=== PATIENT | female | born 1960 | race Caucasian/White ===

== ENCOUNTER 2023-11-09 07:41 | Inpatient (IN) | payer OTHER, MEDICARE, SELFPAY ==
[2023-11-06] VITALS (8 sets, daily range): BP systolic 85–190; BP diastolic 63–83; BMI 21.9; BMI 21.6
[2023-11-06 17:16] LABS: % Basophils 1.4 % (0-2); % Eosinophils 3.8 % (0-6); % Immature Granulocytes 0.2 % (0-0.5); % Lymphocytes 31.1 % (20.5-51.1); % Monocytes 8.7 % (1.7-9.3); % Neutrophils 54.8 % (42.2-75.2); Absolute Basophils 0.1 10^3/uL (0-0.2); Absolute Eosinophils 0.2 10^3/uL (0-0.7); Absolute Monocytes 0.6 10^3/uL (0.1-0.6); Absolute Neutrophils 3.5 10^3/uL (1.4-6.5); Hematocrit 33.2 % (37.0-47.0); Hemoglobin 11.3 g/dL (12.0-16.0); Mean Corpuscular Hgb 28.4 pg (27.0-31.0); Mean Corpuscular Volume 83.4 fL (81.0-99.0); Mean Platelet Volume 9.5 fL (7.4-10.4); Nucleated Red Blood Cells % 0 %; Platelet Count 327 10^3/uL (130-400); Red Blood Cell Count 3.98 10^6/uL (4.20-5.40); Red Cell Dist. Width 13.8 % (11.5-14.5); White Blood Cell Count 6.3 10^3/uL (4.8-10.8)
[2023-11-06 17:33] LABS: ALT (SGPT) 22 U/L (0-35); AST (SGOT) 27 U/L (14-36); Albumin 3.9 g/dl (3.5-5.0); Alkaline Phosphatase 91 U/L (38-126); Blood Urea Nitrogen 28 mg/dl (7-17); Calcium 10.1 mg/dl (8.4-10.2); Carbon Dioxide 30 mmol/L (22-30); Chloride 101 mmol/L (98-107); Glucose 218 mg/dl (70-99); Lipase 36 U/L (23-300); Potassium 4.1 mmol/L (3.5-5.1); Sodium 139 mmol/L (135-145); Total Bilirubin 0.3 mg/dl (0.2-1.3); Total Protein 6.6 g/dl (6.3-8.2); eGFR > 60.00
[2023-11-06 17:44] LABS: Troponin I < 0.012 ng/ml
[2023-11-06 19:40] LABS: D-Dimer 0.35 ug/mlFEU (0.00-0.50)
--- NOTE | 2023-11-06 19:48 | ED.GENMED ---
History of Present Illness
General
Chief Complaint: Chest Pain
Source: patient and spouse
Exam Limitations: none
Time Seen by Provider: 11/06/23 18:32
Nursing documentation reviewed up to this point in time: agreed with
Travel History
Have you had any contact with someone who has COVID-19?: No
Do you have any symptoms of coronavirus? Fever > 100 degrees, chills, cough, shortness of breath, sore throat, loss of taste or smell, muscle aches, or headache?: No
History of Present Illness
History of Present Illness:
Patient with history of CAD, status post stent placement 3 years ago at [facility], presents to ED secondary to 1 week history of fatigue, along with intermittent left-sided chest pain as well as exertional shortness of breath,
especially when walking up the steps. This afternoon, when chest pain occurred, which was sharp, more severe than previous, patient proceeded to nitroglycerin tablets at home. First tablet did not offer much relief, however, when second tablet was
taken 5 minutes later, chest pain resolved completely shortly afterwards. Afterwards, patient spoke with her primary care physician who advised patient come to ED for an evaluation. At the time of evaluation ED, patient denies any chest pain.
Denies fever. Denies coughing. Denies leg pain or swelling. Denies back pain. Patient states that sharp nature of the pain as well as fatigue, are similar to what she experienced 3 years ago when she received multiple stent placement. She was
also told at that time, there was 40 to 50% lesion in one of the other blood vessels.
Past History
Past History
ED Past Medical History: HTN, Hypercholesterolemia, IDDM, [place] and Other (Kidney transplant)
ED Past Surgical History: Other (Kidney transplant)
Social History
Tobacco: Non-smoker
Review of Systems
Review of Systems
Allergies reviewed?: Yes
All Other Systems: ROS reviewed and negative except as documented in HPI and ROS
Constitutional: Reports no symptoms
EENT: Reports no symptoms
Respiratory: Reports trouble breathing
Cardiac: Reports chest pain
ABD/GI: Reports no symptoms
: Reports no symptoms
Musculoskeletal: Reports no symptoms
Skin: Reports no symptoms
Neurological: Reports no symptoms
Phy Exam
Physical Exam
Physical Exam:
Physical Exam
General: no apparent distress, not acutely ill. afebrile
Head: nc/at. eomi
Neck: supple. normal range of motion. no jvd.
Heart: s1/s2 regular rate and rhythm, systolic ejection murmur. equal radial pulses.
Lungs: no acute respiratory distress. clear bilaterally
Abdomen: normal bowel sounds. not tender.
Neuro: alert and oriented. no focal neurological deficits
Skin: no rash
Psychiatric: well kept. interactive and cooperative
Extremities: no edema. no calf tenderness.
Scores
Heart Score for Chest Pain Patients
STEMI patient?: No
History: Moderately Suspicious
ECG: Normal
Age: >45 - <65 years
Risk Factors: >/= 3 Risk Factors or History of CAD
Troponin: </= Normal Limit
Heart Score for Chest Pain Patients: 4
Heart Score Risk: 20.3% MACE over next 6 weeks
Course
Orders/Labs/Results
Orders:
Orders
11/06/23 16:49
EKG [Electrocardiogram (*1)] Stat
Reason for Study: Chest Pain
EKG- Treatment ONCE
11/06/23 17:06
Complete Blood Count/With Diff Urgent
Comprehensive Metabolic Panel Urgent
Lipase Urgent
NT-proBNP Urgent
Comment: ADD ON
Troponin I Urgent
11/06/23 18:55
CR Chest - 2 Views Urgent
Comment:
Reason For Exam: chest pain
11/06/23 19:22
D-Dimer Urgent
11/06/23 19:56
Add On- LAB Urgent
Tests Added?: ProBNP
11/06/23 20:38
EKG- Treatment ONCE
11/06/23 21:14
Admit/Transfer Patient As Directed
Co-Sign Provider:
Level of Care: Observation services
Assign to:: Telemetry
Physician / Group: Zac
Diagnosis: Fatigue, Flank Pain
Reason for Telemetry: Chest Pain syndromes
Date to Stop Telemetry: 11/08/23
Time to Stop Telemetry: 11:00
11/06/23 21:15
Code Status As Directed
Resuscitation Status: Full Code
11/06/23 22:56
Acetaminophen [Tylenol] 650 mg PO Q4HPRN PRN
Dextrose 50%-Water [Dextrose 50% Syringe] 12.5 grams IV [id number] PRN
Gabapentin [Neurontin] 100 mg PO HS
Glucagon [GlucaGen] 1 mg IM PRN PRN
Ondansetron Injectable [Zofran] 4 mg IV Q6HPRN PRN
Pt's Own Ins. Pump U-500 [PT'S OWN INSULIN PUMP - U-500 HumuLIN R] See Dose Instructions SC PRN PRN
11/06/23 22:56
CARDIOLOGY CONSULT Routine
Consulting Provider: Josselyn Portillo
Was physician already notified: Yes
Reason for consult: Chest Pain
Activity As Directed
Activity Level: Ambulate
Bedside Glucose Monitoring As Directed
Frequency: AC&HS
Additional Instructions:: Change to q6h if pt on TPN, tube feeding or not eating
EKG with chest pain [ECG as needed] As Directed
ECG as needed for:: Chest Pain
I/O [Intake/ Output] As Directed
Frequency: Per unit guidelines
Orthostatic Vital Signs As Directed
Orthostatic VS Frequency: BID
Vital Signs As Directed
Frequency: Per unit guidelines
Weight As Directed
Frequency: Daily
Oxygen Therapy [O2 Therapy] [RESP] Routine
Titrate/Wean O2 to maintain O2 sat greater than (%): 94
DX Deep Vein Thrombosis Video Routine
11/06/23 23:45
Troponin I Q6H
11/07/23 00:00
Pt's Own Ins. Pump U-500 [PT'S OWN INSULIN PUMP - U-500 HumuLIN R] See Dose Instructions SC Q6
11/07/23 06:00
EKG [Electrocardiogram (*1)] IN AM
Reason for Study: Chest Pain
1800 calorie (15 carb) Diabetic
At Your Request: Full Participation
Six Small Meals: Yes
Levothyroxine [Synthroid] 100 mcg PO DAILY@0600
11/07/23 06:26
Basic Metabolic Panel IN AM
Complete Blood Count/No Diff IN AM
Glycohemoglobin (HgbA1c) IN AM
Troponin I Q6H
11/07/23 08:00
Aspirin Chewable [Low Strength Aspirin] 81 mg PO DAILY
FOLic ACID [Folvite] 1 mg PO DAILY
Furosemide [Lasix] 40 mg PO DAILY
Heparin 5,000 units SC Q12
Magnesium Oxide 500 mg PO DAILY
Prednisone [Deltasone] 5 mg PO DAILY
Tacrolimus [Prograf] 3 mg PO DAILY@0800
11/07/23 11:30
Troponin I Q6H
11/07/23 20:00
Tacrolimus [Prograf] 2 mg PO QPM@1999
11/08/23 11:00
DC Protocol for Telemetry ONCE
Abnormal Lab Results
11/06/23
17:06
RBC 3.98 L 10^6/uL
(4.20-5.40)
Hgb 11.3 L g/dL
(12.0-16.0)
Hct 33.2 L %
(37.0-47.0)
BUN 28 H mg/dl
(7-17)
Glucose 218 H mg/dl
(70-99)
11/06/23 17:06
11/06/23 17:06
Vital Signs
Initial and Last Documented VS:
Initial Vital Signs
Temp Pulse Resp BP Pulse Ox
98.0 F 87 18 85/63 99
11/06/23 16:49 11/06/23 16:49 11/06/23 16:49 11/06/23 16:49 11/06/23 16:49
Last Documented Vital Signs
Temp Pulse Resp BP Pulse Ox
98.5 F 83 18 130/73 98
11/08/23 07:00 11/08/23 07:00 11/08/23 07:00 11/08/23 07:00 11/08/23 07:00
MDM/Problems Addressed
MDM/Problems Addressed:
Discussed with (cardiology) - recommends hospitalist admission due to multiple cardiac risk factors, as well as kidney transplant history.
*EKG
Interpreted by ED Provider?: Yes
EKG Intrepretation Date: 11/06/23
Heart Rate: 88
Rate: normal
Rhythm: sinus
Hayes: normal axis
Interval: normal interval
*Critical Care Note
Total Time (30-74mins, 75-104mins- exclusive of procedures): Not Applicable
ED Attending Note
-
Portions of this chart may have been created with voice recognition software.� Occasional wrong word or��sound alike� substitutions may have occurred due to the inherent limitations of voice recognition software.
Discharge Plan
Departure
Patient Disposition: Admit
Date of Disposition: 11/06/23
Time of Disposition: 20:40
Admit to: Telemetry
Presentation/result/management discussed w/ accepting MD/DO: Hospitalist
Discharge Problem:
Chest pain
Interventions
Interventions:
*Risk Screen - Suicide Last Done: 11/06/23 17:52
*General Assessment Last Done: 11/06/23 16:49
*Neglect/Abuse Screening Last Done: 11/06/23 17:52
ED- Fall Risk Assessment Last Done: 11/06/23 17:53
*ED COVID-19 Vaccine History Last Done: 11/06/23 16:49
*Nursing Disposition Last Done: 11/06/23 22:40
ED- Cardiac Assessment Last Done: 11/06/23 17:53
Discharge Date and Time
Discharge Date/Time: 11/06/23 22:41
[2023-11-06 20:37] LABS: NT-proBNP 755 pg/ml
--- NOTE | 2023-11-06 21:25 | HPS.HSE ---
Family Physician
-
Family Physician: Pieter Lynn
Chief Complaint
-
Flank Pain
History of Present Illness
Patient is a 63y F with PMH significant for renal disease s/p transplant, ASCVD and HTN who presents to ED complaining of fatigue x 2 weeks, PERKINS and new flank pain. Patient states that she has not felt herself for the past 2 weeks or so. She
complains of general decrease in energy and notes that she has been 'lying on the couch a lot'. She complains of shortness of breath with activity / exertion. She denies headache, fever, chills, cough, etc. She does complain of nausea but denies
any emesis. No diarrhea or symptoms.
Today, patient developed pain in the L flank which was sudden and severe. She took a nitroglycerin tab with partial relief of her pain and then a second tab with complete relief of her pain.
Patient spoke with her PCP who advised evaluation in the ED.
At present she is resting comfortably with no additional complaints. She notes that she feels 'an ache' in the L flank, but no other pain.
Medical History
Past Medical History
Past Medical History: Reports Other
Additional Past Medical History:
ASCVD
ESRD s/p Renal Transplant
Hypertension
DM-II
Sarcoidosis
Hypothyroidism
Breast Cancer
ADHD
Past Surgical History: Reports Other
Additional Past Surgical History:
LUE AVF (placement and removal)
Renal Transplant (2001 - [facility])
T&A
Cholecystectomy
PTCA with Stents
Social History
Tobacco: Non-smoker
Alcohol: Occasional (Rare)
Drug: None
Family History
Family History: Not pertinent
Allergies / Home Medications
Allergies reflects when Allergies were last updated in [employer].
Home Medications with original date entered in [employer]
Allergy/Medication List:
Allergies
Allergy/AdvReac Type Severity Reaction Status Date / Time
Penicillins Allergy Unknown Shortness Verified 11/06/23 17:02
of Breath
prochlorperazine Allergy Unknown Anxiety Verified 11/06/23 17:02
[From Compazine]
Sulfa (Sulfonamide Allergy Unknown Rash Verified 11/06/23 17:02
Antibiotics)
Home Medications
aspirin 81 mg chewable tablet 81 mg PO DAILY Blood clot prevention/tx 02/12/22
ergocalciferol (vitamin D2) 1,250 mcg (50,000 unit) capsule 1,250 mcg PO MO Supplement 02/12/22
folic acid 1 mg tablet 1 mg PO DAILY Supplement 02/12/22
furosemide 40 mg tablet 40 mg PO DAILY Fluid retention/Swelling 02/12/22
magnesium oxide 400 mg (241.3 mg magnesium) tablet 400 mg PO DAILY Supplement 02/12/22
prednisone 5 mg tablet 5 mg PO DAILY Transplant 02/12/22
tacrolimus 1 mg capsule, immediate-release 2 mg PO QPM@2000 Transplant 02/12/22
tacrolimus 1 mg capsule, immediate-release 3 mg PO DAILY@0800 Transplant 02/12/22
gabapentin 100 mg capsule 100 mg PO HS 11/06/23
levothyroxine 100 mcg tablet 100 mcg PO DAILY 11/06/23
Review of Systems
-
History Source: Patient
A 12 point ROS was completed and negative except as noted: Yes
Constitutional: Reports Fatigue; Denies Fever or Chills
EENT: Denies Sore Throat
Respiratory: Reports Trouble Breathing (PERKINS); Denies Cough
Cardiac: Denies Chest Pain or Palpitations
Abdomen/GI: Reports Nausea; Denies Abdominal Pain, Vomiting, Diarrhea, Bloody Stools or Black Stools
: Reports Flank Pain; Denies Dysuria, Frequency or Incontinence
Musculoskeletal: Denies Edema
Neurological: Denies Dizzy, Headache, Weakness or Numbness
Psych: Denies Depression or Anxiety
Physical Exam
Vital Signs
Vital Signs
Temp Pulse Resp BP Pulse Ox
98.0 F 83 23 177/70 98
11/06/23 16:49 11/06/23 17:45 11/06/23 17:45 11/06/23 17:44 11/06/23 17:45
Physical Exam
General: Other (63y F in no acute distress.)
HEENT: Moist mucous membranes and PERRLA
Respiratory: Clear; No Wheezes, Rales or Rhonchi
Cardiac: S1/S2 and Regular Rhythm; No Murmur
GI: Soft, Non Tender, Non Distended, Normal Bowel Sounds and Other (insulin pump in place in RLQ.)
Musculoskeletal: No Clubbing, No Cyanosis and No Edema
Neuro: AO x 3 and Nonfocal/grossly intact
Psych: No Anxious or Depressed
Laboratory Results
-
11/06/23 17:06
11/06/23 17:06
Laboratory Results
Total Bilirubin 0.3 mg/dl (0.2-1.3) 11/06/23 17:06
AST 27 U/L (14-36) 11/06/23 17:06
ALT 22 U/L (0-35) 11/06/23 17:06
Alkaline Phosphatase 91 U/L (38-126) 11/06/23 17:06
Troponin I < 0.012 ng/ml 11/06/23 17:06
Lipase 36 U/L (23-300) 11/06/23 17:06
Impression/Plan
-
A/P: Patient is a 63y F with PMH significant for ASCVD, renal transplant and DM-II who presents to ED complaining of flank pain and 2 weeks of fatigue and PERKINS.
Flank Pain
ASCVD
- Observe overnight for further evaluation and treatment.
- Pain quite atypical for cardiac etiology with L flank pain, undetectable troponin and normal EKG.
- Monitor on tele overnight.
- Follow serial enzymes.
- Cardiology evaluation.
- Continue current CV medications.
- Prior h/o coronary stents.
- Check UA.
- Consider additional imaging if flank pain recurs / persists.
Fatigue / PERKINS
- Unclear etiology. ? viral syndrome.
- Labs unremarkable thus far.
- Monitor for any new / worsening symptoms.
- Check Prograf level.
DM-II
- Stable. Continue patient's own pump.
- Update A1C.
Benign Hypertension
- Patient notes that losartan recently stopped (about 2-3 weeks ago) due to lower BP readings at home.
- Continue current medications.
- Hydralazine PRN very high BP.
- Restart losartan if needed for adequate BP control.
Hypothyroidism
- Continue current T4 supplementation.
DVT Prophylaxis: Subcut Heparin
Code Status: Full
[2023-11-06 22:51] LABS: Glucose - Point of Care 178 mg/dl (70-99)
[2023-11-06] MEDS: [UNRECOGNIZED DRUG - OTHER] SC (23:00)
[2023-11-06] MEDS: INSULIN REGULAR SC (23:00)
[2023-11-06] MEDS: MELATONIN 5 MG PO (23:47)
[2023-11-06] MEDS: NEURONTIN 100 MG PO (23:47)
[2023-11-06] MEDS: PROGRAF 2 MG PO (23:52)
[2023-11-07 00:15] LABS: Troponin I 0.012 ng/ml
[2023-11-07 03:00] VITALS: BP 147/66
[2023-11-07] MEDS: SYNTHROID 100 MCG PO (05:40)
[2023-11-07 06:33] LABS: Hematocrit 30.8 % (37.0-47.0); Hemoglobin 10.4 g/dL (12.0-16.0); Mean Corp Hgb Conc. 33.8 g/dL (33.0-37.0); Mean Corpuscular Hgb 28.3 pg (27.0-31.0); Mean Corpuscular Volume 83.9 fL (81.0-99.0); Mean Platelet Volume 9.7 fL (7.4-10.4); Platelet Count 292 10^3/uL (130-400); Red Blood Cell Count 3.67 10^6/uL (4.20-5.40); Red Cell Dist. Width 13.5 % (11.5-14.5); White Blood Cell Count 5.8 10^3/uL (4.8-10.8)
--- NOTE | 2023-11-07 06:51 | W.PN.HOSP.TC ---
Today's Communication/Plan
-
ECHO stress test as per Cardio
PT/OT eval
Blood Pressure control
Bowel regimen
CT abd/pelvis
Assessment / Plan
Assessment / Plan
Physical Exam
General: no acute distress appears comfortable at this time
HEENT: Moist mucous membranes and PERRLA
Respiratory: Clear; No Wheezes, Rales or Rhonchi
Cardiac: S1/S2 and Regular Rhythm; No Murmur
GI: Soft, Non Tender, Non Distended, Normal Bowel Sounds, insulin pump in place in RLQ
Musculoskeletal: No Clubbing, No Cyanosis and No Edema
Neuro: AO x 3
Psych: Calm
A/P: Patient is a 63y F with PMH significant for ASCVD, renal transplant and DM-II who presents to ED complaining of left sided back pain and 2 weeks of fatigue and PERKINS.
Left sided Pain near scapula, improved with nitro as per patient
ASCVD
- Troponin neg x4
- Cardiology evaluation appreciated checking ECHO, stress test
- Continue current CV medications.
- Prior h/o coronary stents.
- UA neg
Fatigue / PERKINS, Reporting poor appetite intermittent nausea suprapubic pain/tenderness past few weeks
-PT/OT eval
-checking Prograf lvl
-Checking CT abd/pelvis with IV oral contrast, IV fluid NS 70 cc/h for 1 liter administered for prophylaxis IV contrast
(results to be discussed with patient) 11/06 CT abd/pelvis IV and oral contrast appreciated:
-Pulmonary nodules. 2.5 mm nodule in the left costophrenic angle. 2.9 mm groundglass nodule in the posterior right lung base. Advise comparison with any prior outside examination.
-Suspected treated metastatic lesion in the liver along the posterior right lobe margin measuring approximately 3 cm. At the junction of the medial and lateral segments of the left lobe there is a 1.1 cm low-attenuation space-occupying lesion. There
are additional tiny 5 mm or less low-attenuation hepatic structures which are too small to fully characterize. The possibility of metastatic disease cannot be entirely excluded. Advise direct comparison with any prior outside examination.
-Severe bilateral igiugig renal cortical atrophy. 10 mm enhancing right renal mass suspicious for renal cell carcinoma. Advise direct comparison with any prior outside examination.
-Left pelvic transplant kidney. No obstructive uropathy. Few tiny renal cortical cysts.
-No evidence of bowel obstruction.
-Constipation with moderate to large fecal burden.
-Under distention versus mild gastric wall thickening, most pronounced in the region of the gastric cardia, and to a lesser degree in the region of the antrum. Consider further evaluation with endoscopy.
DM-II
- A1c appreciated 8.3
-sugars appear well controlled at this time, patient managing with her pump
HTN
started on Hydralazine 10 mg BID as per Cardio
cont prn IV hydralazine
Hypothyroidism
- Continue current T4 supplementation.
DVT Prophylaxis: Subcut Heparin
Code Status: Full
I spent a total of 50 minutes with the patient or on the floor. More than 50% of this time involved counseling and coordination of care.
Anticipated Discharge: 24 - 48 hours
Subjective/Interval History
-
Date of Service: November 07, 2023
Seen and examined at bedside in no acute distress sitting up comfortably in bed. Reports left sided back pain tenderness near scapula. Denies flank pain.
Objective Data
-
Labs:
Laboratory Results
11/07/23
06:26
WBC Pending
Hgb Pending
Hct Pending
Plt Count Pending
Sodium Pending
Potassium Pending
Chloride Pending
Carbon Dioxide Pending
BUN Pending
Creatinine Pending
Glucose Pending
Calcium Pending
Vital Signs:
Vital Signs
Temp Pulse Resp BP Pulse Ox
98.0 F 76 16 147/66 98
11/07/23 03:00 11/07/23 03:00 11/07/23 03:00 11/07/23 03:00 11/07/23 03:00
[2023-11-07 06:56] LABS: Troponin I < 0.012 ng/ml
[2023-11-07 07:07] LABS: Blood Urea Nitrogen 26 mg/dl (7-17); Calcium 9.7 mg/dl (8.4-10.2); Carbon Dioxide 24 mmol/L (22-30); Chloride 104 mmol/L (98-107); Estimated Creatinine Clearance 61 ml/min; Glucose 164 mg/dl (70-99); Potassium 4.1 mmol/L (3.5-5.1); Sodium 136 mmol/L (135-145); eGFR > 60.00
[2023-11-07 07:15] VITALS: BP 153/77
[2023-11-07 07:22] LABS: Glucose - Point of Care 174 mg/dl (70-99)
[2023-11-07] MEDS: MAGNESIUM OXIDE 500 MG PO (08:44)
[2023-11-07] MEDS: LASIX 40 MG PO (08:44)
[2023-11-07] MEDS: DELTASONE 5 MG PO (08:44)
[2023-11-07] MEDS: HEPARIN SC ×4 (08:45→20:21)
[2023-11-07] MEDS: FOLVITE 1 MG PO (08:45)
[2023-11-07] MEDS: LOW STRENGTH ASPIRIN 81 MG PO (08:45)
[2023-11-07] MEDS: PROGRAF 3 MG PO (08:46)
[2023-11-07] MEDS: [UNRECOGNIZED DRUG - OTHER] SC ×3 (08:47→18:44)
[2023-11-07] MEDS: INSULIN REGULAR SC ×3 (08:47→18:44)
[2023-11-07 08:59] LABS: Glycohemoglobin (HgbA1c) 8.3 % (4.0-5.6)
[2023-11-07] MEDS: MAALOX 30 ML PO (10:30)
[2023-11-07 10:36] LABS: Urine Albumin Negative (Neg - Trace); Urine Bilirubin Negative (Negative); Urine Character Clear (Clear); Urine Color Yellow; Urine Glucose Negative (Negative); Urine Ketone Negative (Negative); Urine Leukocyte Negative (Negative); Urine Nitrite Negative (Negative); Urine Occult Blood Negative (Negative); Urine Specific Gravity 1.015 (<1.030); Urine Urobilinogen Negative (Neg - 1+)
[2023-11-07 11:05] VITALS: BP 171/94
[2023-11-07 11:38] LABS: Glucose - Point of Care 114 mg/dl (70-99)
[2023-11-07 12:21] LABS: Troponin I < 0.012 ng/ml
[2023-11-07] MEDS: NSS 1000 IV (13:04)
--- NOTE | 2023-11-07 13:18 | CON.CAR ---
Consultation
Consultation Request
Date/Time Consultation Requested: 11/06/2023 8 PM
Date/Time Consultation Performed: 11/07/2023 2 PM
Requesting Provider: Dr Carbajal
Performing Provider: Dr. Josselyn Portillo
Reason for Consultation: Chest pain
Medical History
-
Chief Complaint: Chest pain
History of Present Illness:
-She was last seen in our office 06/26/2022. Most recently she presented to [place] ER last night with 2 weeks and dyspnea on exertion and new chest discomfort which she also felt in her back. She had taken 2 sublingual nitroglycerin tablets at
home and chest pain resolved. EKG without acute abnormality. Troponin x 3 negative. She has history of coronary artery disease and renal transplant. She is concerned about residual coronary artery disease. Previously she was on 50 mg of
losartan for blood pressure which had to be de-escalated to 25 mg because of lightheadedness and low blood pressure readings and then eventually discontinued. Her blood pressure is now on the high side. She cannot take beta-blockers because she
has had problems with low sugar recognition. She currently denies chest pain and palpitations. She is some orthopedic issues which are being assessed.
She follows in our office with Dr. Alexander (last seen 06/2022). Prior to this she followed at [facility] cardiology with 03/2021 NE and stents, RCA and circumflex stents. Also h/o PCI in 1994 with LAD stent. It is noted that she had NSTEMI 03/2021 at
the time of overlapping stents to the RCA and Circumflex. Her LAD stent was patent at that time as well. Patient was started on ASA and Effient, but says she stopped the Effient 3 months later due to bruising.
Patient has h/o cadaveric renal transplant from 2001 at [place] that is now managed at [facility].
She has diabetes. She has mixed hyperlipidemia.
She underwent Lexiscan nuclear stress test 03/25/2022 with small fixed defect inferior and inferolateral. Echo 02/13/2022 with EF 55 to 60% mild MR and mild to moderate AI.
Past Medical History
Past Medical History: CAD, Cancer (Left-sided breast cancer status postlumpectomy and XRT she believes she received Herceptin 4 years ago at [facility] HTN, Hypercholesterolemia, Hypothyroidism and Other (Renal transplant,
sarcoid, neuropathy, history of breast cancer)
Past Surgical History: Cholecystectomy and Tonsilectomy
Social History
Tobacco: Non-Smoker
Personal: Single
Family History
Family History: Reviewed & Not Pertinent
Allergies / Home Medications
Allergy/AdvReac Type Severity Reaction Status Date / Time
Penicillins Allergy Unknown Shortness Verified 11/06/23 17:02
of Breath
prochlorperazine Allergy Unknown Anxiety Verified 11/06/23 17:02
[From Compazine]
Sulfa (Sulfonamide Allergy Unknown Rash Verified 11/06/23 17:02
Antibiotics)
�Medication �Instructions �Recorded �Confirmed �Type
aspirin 81 mg chewable tablet 81 mg PO DAILY Blood clot 02/12/22 11/06/23 History
prevention/tx
ergocalciferol (vitamin D2) 1,250 1,250 mcg PO MO Supplement 02/12/22 11/06/23 History
mcg (50,000 unit) capsule
folic acid 1 mg tablet 1 mg PO DAILY Supplement 02/12/22 11/06/23 History
furosemide 40 mg tablet 40 mg PO DAILY Fluid 02/12/22 11/06/23 History
retention/Swelling
magnesium oxide 400 mg (241.3 mg 400 mg PO DAILY Supplement 02/12/22 11/06/23 History
magnesium) tablet
prednisone 5 mg tablet 5 mg PO DAILY Transplant 02/12/22 11/06/23 History
tacrolimus 1 mg capsule, 2 mg PO QPM@2000 Transplant 02/12/22 11/06/23 History
immediate-release
tacrolimus 1 mg capsule, 3 mg PO DAILY@0800 Transplant 02/12/22 11/06/23 History
immediate-release
gabapentin 100 mg capsule 100 mg PO HS 11/06/23 11/06/23 History
levothyroxine 100 mcg tablet 100 mcg PO DAILY 11/06/23 11/06/23 History
Review of Systems
-
History Source: Patient
All other systems: Negative unless noted
Cardiac: Chest Pain
Musculoskeletal: Muscle Pain and Muscle Stiffness
Physical Exam
Vital Signs
Temp Pulse Resp BP Pulse Ox
98.1 F 86 18 171/94 99
11/07/23 11:05 11/07/23 11:05 11/07/23 11:05 11/07/23 11:05 11/07/23 11:05
Lab Results
11/07/23 06:26
11/07/23 06:26
755 pg/ml 11/06/23 17:06
General: Well developed, well nourished in NAD.
Neck: Supple, no JVD, HJR, carotids +2 B/L, no bruits bilaterally.
Heart: Non displaced PMI, RRR, 3/6 basal systolic murmur, No S3, S4, no rubs.
Lungs: Clear to auscultation bilaterally, no wheeze, rhonchi, rubs bilaterally,
Extremities: No clubbing, cyanosis or edema bilaterally.
Neuro: Grossly nonfocal, awake, alert and oriented x3.Troponin I < 0.012 ng/ml 11/07/23 11:30 Pke-R-[id number] Pept
Impression / Plan
-
Impression:
Chest pain, left upper back pain
Elevated Troponin, possibly a non-NE Troponin elevation
CAD
LAD stent 1994
s/p NSTEMI and overlapping mid to distal 3mm and 3 mm Resolute RCA stents and overlapping 2 and 2.5 mm Resolute stent to Circumflex
Statin intolerance, now on PCSK9 inhibitor
Hypertension
Moderate aortic valve insufficiency
Diabetes mellitus
Anemia
s/p cadaveric renal transplant at [place] 2001, currently managed at [facility]
Breast cancer left-sided lumpectomy radiation about 4 years ago possibly treated with Herceptin (obtain records from Pallavi Billingsley cardio corporate coordinator at [facility])
Neuropathy
Lexiscan nuclear stress test 03/25/2022: Fixed defect in the basal inferolateral and basal inferior segments consistent with infarction. No ischemia. EF 52%.
Echo 04/10/21: EF 55-60%, global strain is normal, no WMA, mild aortic insufficiency
ECHO 02/13/22: EF 55 to 60%, mild concentric LVH, no regional wall motion abnormalities, stage I diastolic dysfunction, mild MR, mild to moderate AR
Plan:
-She presents with chest/left upper back symptoms and dyspnea on exertion. Her blood pressure has been elevated similar to last admission in which she had chest discomfort. Troponins are negative x 3. EKG is abnormal but stable. She however did
respond to 2 sublingual nitroglycerin and she is concerned about coronary artery disease since this was associated with decrease in activity level.
Suspect that hypertension is playing a role. Last stress test negative for ischemia 03/25/2022. Echo noted above.
She is limited orthopedically with her back. She will undergo Lexiscan nuclear stress test to exclude ischemia/high risk features. Discussed with patient at length
Await echocardiogram she does have history of moderate AI previously. Assess LV function.
Continue risk factor modification.
Hypertension. She was recently hypotensive as an outpatient on losartan and had to be de-escalated. She cannot take beta-pamella because of issues with low sugars and not feeling them with beta-blockers previously. She cannot take calcium channel
blockers given can potentiate tacrolimus.
At this time I have started low-dose hydralazine and will uptitrate as tolerates.
Diabetes with hemoglobin A1c 8.3%.
Defer to primary service
Back pain
Being assessed by primary service
Renal transplant
Noted
Anemia
Stable
Breast cancer
Stable by report
Data Reviewed
-
EKG: Tracing Personally Visualized and interpreted
Radiology: Report Reviewed by me
Medical Tests (Nuc Med, Echo etc): Report Reviewed by me
Labs: Labs Reviewed by me
Old Records: Reviewed
[2023-11-07 15:40] VITALS: BP 151/84
[2023-11-07] MEDS: OMNIPAQUE 50 ML PO (16:14)
[2023-11-07 17:06] LABS: Glucose - Point of Care 162 mg/dl (70-99)
[2023-11-07 19:40] VITALS: BP 161/78
[2023-11-07] MEDS: PROGRAF 2 MG PO (20:17)
[2023-11-07] MEDS: APRESOLINE 10 MG PO (20:17)
[2023-11-07 21:22] LABS: Glucose - Point of Care 156 mg/dl (70-99)
[2023-11-07] MEDS: NEURONTIN 100 MG PO (21:33)
[2023-11-07] MEDS: MELATONIN 5 MG PO (22:11)
[2023-11-07 23:00] VITALS: BP 160/77
[2023-11-08] VITALS (10 sets, daily range): BP systolic 130–201; BP diastolic 69–105; PULSE 92; BMI 21.8
[2023-11-08] MEDS: [UNRECOGNIZED DRUG - OTHER] SC ×5 (00:36→23:43)
[2023-11-08] MEDS: INSULIN REGULAR SC ×5 (00:36→23:43)
[2023-11-08] MEDS: APRESOLINE 5 MG IV (02:46)
[2023-11-08 05:44] LABS: Hematocrit 30.9 % (37.0-47.0); Hemoglobin 10.7 g/dL (12.0-16.0); Mean Corp Hgb Conc. 34.6 g/dL (33.0-37.0); Mean Corpuscular Hgb 28.3 pg (27.0-31.0); Mean Corpuscular Volume 81.7 fL (81.0-99.0); Mean Platelet Volume 9.4 fL (7.4-10.4); Platelet Count 306 10^3/uL (130-400); Red Blood Cell Count 3.78 10^6/uL (4.20-5.40); Red Cell Dist. Width 13.6 % (11.5-14.5)
[2023-11-08 06:25] LABS: Blood Urea Nitrogen 20 mg/dl (7-17); Calcium 9.8 mg/dl (8.4-10.2); Carbon Dioxide 25 mmol/L (22-30); Chloride 106 mmol/L (98-107); Estimated Creatinine Clearance 69 ml/min; Glucose 139 mg/dl (70-99); HDL Cholesterol 75 mg/dl; LDL Cholesterol, Calculated 84 mg/dl; Magnesium 1.8 mg/dl (1.6-2.3); Potassium 4.2 mmol/L (3.5-5.1); Sodium 137 mmol/L (135-145); Total Cholesterol 172 mg/dl (50-199); Triglyceride 69 mg/dl (10-149); Very Low Density Lipoprotein 13 mg/dl (0-30); eGFR > 60.00
[2023-11-08] MEDS: SYNTHROID 100 MCG PO (06:29)
--- NOTE | 2023-11-08 08:41 | W.PN.CARDCBS ---
Addendum entered and electronically signed by Senait Quintero PA-C 11/08/23 13:37:
Reviewed stress test and echo results with patient. Echo 11/08/23 shows preserved EF 61% with mild to moderate AI. Lexiscan stress test 11/08/23 with small fixed, basilar, inferolateral and basilar inferior defects consistent with infarct and prior
RCA disease. No ischemia. EF 51%
Outpatient cardiology follow up arranged with Dr. Alexander who is her primary outpt food service supervisor for later this week
Original Note:
Today's Communication / Plan
-
MIBI and echo today
Impression / Plan
-
.
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
Impression:
Chest pain, left upper back pain
Elevated Troponin, possibly a non-NH Troponin elevation, peak 0.05
CAD
LAD stent 1994
s/p NSTEMI and overlapping mid to distal 3mm and 3 mm Resolute RCA stents and overlapping 2 and 2.5 mm Resolute stent to Circumflex
Statin intolerance, now on PCSK9 inhibitor
Hypertension
Moderate aortic valve insufficiency
Diabetes mellitus
Anemia
s/p cadaveric renal transplant at [place] 2001, currently managed at [facility]
Breast cancer left-sided lumpectomy radiation about 4 years ago possibly treated with Herceptin (obtain records from Pallavi Billingsley cardio marine operations coordinator at [place])
Neuropathy
Lexiscan nuclear stress test 03/25/2022: Fixed defect in the basal inferolateral and basal inferior segments consistent with infarction. No ischemia. EF 52%.
Echo 04/10/21: EF 55-60%, global strain is normal, no WMA, mild aortic insufficiency
ECHO 02/13/22: EF 55 to 60%, mild concentric LVH, no regional wall motion abnormalities, stage I diastolic dysfunction, mild MR, mild to moderate AR
Plan:
HPI: She presents with chest/left upper back symptoms and dyspnea on exertion. Her blood pressure has been elevated similar to last admission in which she had chest discomfort. Troponins are negative x 3. EKG is abnormal but stable. She however
did respond to 2 sublingual nitroglycerin and she is concerned about coronary artery disease since this was associated with decrease in activity level.
Lexiscan MIBI pending as well as echo.
nonMI trop may be related to HTN, however she had some response to nitro and has hx of PCI 1994 and Mar 2021 with PCI to RCA and LCX [facility].
Continue risk factor modification.
Hypertension: She was recently hypotensive as an outpatient on losartan and had to be de-escalated. She cannot take beta-pamella because of issues with low sugars and not feeling them with beta-blockers previously. She cannot take calcium channel
blockers given can potentiate tacrolimus.\\
Hydralazine was started this admit for HTN, titrate as needed.
Diabetes with hemoglobin A1c 8.3%:
Defer to primary service
Back pain
Being assessed by primary service
Progress Note - Machine Load Clerk
Subjective
Date of Service: November 08, 2023
Pt seen and examined. No complaints. No chest pain or shortness of breath.
Objective
Labs:
11/08/23 05:24
11/08/23 05:24
Labs
Hgb 10.7 g/dL (12.0-16.0) L 11/08/23 05:24
Hct 30.9 % (37.0-47.0) L 11/08/23 05:24
Plt Count 306 10^3/uL (130-400) 11/08/23 05:24
Sodium 137 mmol/L (135-145) 11/08/23 05:24
Potassium 4.2 mmol/L (3.5-5.1) 11/08/23 05:24
BUN 20 mg/dl (7-17) H 11/08/23 05:24
Creatinine 0.7 mg/dL (0.6-1.0) 11/08/23 05:24
Glucose 139 mg/dl (70-99) H 11/08/23 05:24
Troponins
11/06/23 11/06/23 11/07/23
17:06 23:45 06:26
Troponin I < 0.012 0.012 < 0.012
11/07/23
11:30
Troponin I < 0.012
Vital Signs and I&O:
Vital Signs
Temp Pulse Resp BP Pulse Ox
98.5 F 83 18 130/73 98
11/08/23 07:00 11/08/23 07:00 11/08/23 07:00 11/08/23 07:00 11/08/23 07:00
Vital Signs
Temp Pulse Resp BP Pulse Ox
98.5 F 83 18 130/73 98
11/08/23 07:00 11/08/23 07:00 11/08/23 07:00 11/08/23 07:00 11/08/23 07:00
Intake & Output
11/06/23 11/07/23 11/08/23 11/09/23
06:59 06:59 06:59 06:59
Intake Total 840 / 840
Balance 840 / 840
Physical Exam
Physical Exam
General: No acute distress, AAOX3
Neck: Negative JVD
Heart: Regular, Negative S3 positive S1/S2, Negative S4, No murmur
Lungs: CTA b/l, negative wheezes/rales/rhonchi
Abd: Positive BS, NT/ND, neg rebound/rigidity/guarding
Ext: Negative cyanosis/clubbing/edema
Neuro: nonfocal
--- NOTE | 2023-11-08 09:16 | W.PN.HOSP.TC ---
Today's Communication/Plan
-
Discuss CT imaging findings with patient
Will need oncology, nephrology, urology, pulmonary and GI consultations
Check iron studies
Assessment / Plan
Assessment / Plan
Physical Exam
General: no acute distress appears comfortable at this time
HEENT: Moist mucous membranes
Respiratory: Clear; No Wheezes, Rales or Rhonchi
Cardiac: S1/S2 and Regular Rhythm; No Murmur
GI: Soft, Non Tender, Non Distended, Normal Bowel Sounds, insulin pump in place in RLQ
Musculoskeletal: No Clubbing, No Cyanosis and No Edema
Neuro: AO x 3
Psych: Calm
A/P: Patient is a 63y F with PMH significant for ASCVD, renal transplant and DM-II who presents to ED complaining of left sided back pain and 2 weeks of fatigue and PERKINS.
Left sided Pain near scapula, improved with nitro as per patient
ASCVD
- Troponin neg x4
- Cardiology evaluation appreciated checked ECHO, stress test --> no ACS
- Continue current CV medications.
- Prior h/o coronary stents.
- UA neg
Fatigue / PERKINS, Reporting poor appetite intermittent nausea suprapubic pain/tenderness past few weeks
-PT/OT eval
-checked Prograf lvl -- low? Will consult nephrology.
-Checked CT abd/pelvis with IV oral contrast, IV fluid NS 70 cc/h for 1 liter administered for prophylaxis IV contrast
-CT abd/pelvis returned concerning for malignancy GI, right renal carcinoma, possible liver mets, and pulm nodules.
-Will need oncology, GI and urology consults
11/06 CT abd/pelvis IV and oral contrast appreciated:
-Pulmonary nodules. 2.5 mm nodule in the left costophrenic angle. 2.9 mm groundglass nodule in the posterior right lung base. Advise comparison with any prior outside examination.
-Suspected treated metastatic lesion in the liver along the posterior right lobe margin measuring approximately 3 cm. At the junction of the medial and lateral segments of the left lobe there is a 1.1 cm low-attenuation space-occupying lesion. There
are additional tiny 5 mm or less low-attenuation hepatic structures which are too small to fully characterize. The possibility of metastatic disease cannot be entirely excluded. Advise direct comparison with any prior outside examination.
-Severe bilateral [place] renal cortical atrophy. 10 mm enhancing right renal mass suspicious for renal cell carcinoma. Advise direct comparison with any prior outside examination.
-Left pelvic transplant kidney. No obstructive uropathy. Few tiny renal cortical cysts.
-No evidence of bowel obstruction.
-Constipation with moderate to large fecal burden.
-Under distention versus mild gastric wall thickening, most pronounced in the region of the gastric cardia, and to a lesser degree in the region of the antrum. Consider further evaluation with endoscopy.
DM-II
- A1c appreciated 8.3
-sugars appear well controlled at this time, patient managing with her pump
HTN
started on Hydralazine 10 mg BID as per Cardio
cont prn IV hydralazine
Hypothyroidism
- Continue current T4 supplementation.
DVT Prophylaxis: Subcut Heparin
Code Status: Full
Anticipated Discharge: 24 - 48 hours
Subjective/Interval History
-
Date of Service: November 08, 2023
Patient was seen and examined. She reported some fatigue but otherwise no new significant symptoms or complaints.
Objective Data
-
Labs:
Laboratory Results
11/08/23
05:24
WBC 7.0
Hgb 10.7 L
Hct 30.9 L
Plt Count 306
Sodium 137
Potassium 4.2
Chloride 106
Carbon Dioxide 25
BUN 20 H
Creatinine 0.7
Glucose 139 H
Calcium 9.8
Vital Signs:
Vital Signs
Temp Pulse Resp BP Pulse Ox
98.5 F 83 18 130/73 98
11/08/23 07:00 11/08/23 07:00 11/08/23 07:00 11/08/23 07:00 11/08/23 07:00
I&O
11/07/23 11/08/23 11/09/23
06:59 06:59 06:59
Intake Total 840 / 840
Balance 840 / 840
--- NOTE | 2023-11-08 09:30 | PN.DE.MGMTRT ---
Insulin Management
- -
11/08/2023: Diabetes consult for insulin pump management
This is a 63 year old female with T1DM initially diagnosed at 9 yrs old, routinely follows up with her Endocrine team Dr. Le. Pt presented with c/o fatigue x 2 weeks, PERKINS and new flank pain.
Pt is currently off the floor for tests and not available for interview.
All information obtained from chart review.
Pt has omni pod 5 insulin pump with Dexcom G6 CGM. Current A1C 8.3%, Cr 0.7, eGFR>60
Glucose stable and in range, premeal 114 to 174 yesterday, fasting 139 this AM.
Insulin pump and CGM in place according to nursing staff.
Chart review indicates previous Pump settings as follow:
Basal of 0.6, ICR 1:15, Sensitivity 70, 24 hr total of 14.4 units
Will make no changes to her pump settings at tis time
Pt will f/u with her Shingle Inspector Dr. Le post discharge
Diabetes History
- -
Type of Diabetes: 1
Pre-Admission Diabetes Regimen
11/08/23
05:24
Creatinine 0.7
Lab Results
Hemoglobin A1c 8.3 % (4.0-5.6) H 11/07/23 06:26
Insulin Pump Settings
IP Diabetes Regimen
11/07/23 11/07/23 11/07/23
11:37 17:04 21:20
Glucose
POC Glucose 114 H 162 H 156 H
11/08/23
05:24
Glucose 139 H
POC Glucose
Meal type: Dinner
Amount consumed: 100%
Patient Education
[2023-11-08] MEDS: MAGNESIUM OXIDE 500 MG PO (12:03)
[2023-11-08] MEDS: PROGRAF 3 MG PO (12:03)
[2023-11-08] MEDS: SENOKOT-S 1 TABLET PO ×2 (12:04→20:58)
[2023-11-08] MEDS: APRESOLINE 10 MG PO ×2 (12:04→20:57)
[2023-11-08] MEDS: LOW STRENGTH ASPIRIN 81 MG PO (12:04)
[2023-11-08] MEDS: DELTASONE 5 MG PO (12:04)
[2023-11-08] MEDS: LASIX 40 MG PO (12:04)
[2023-11-08 12:05] LABS: Glucose - Point of Care 166 mg/dl (70-99)
[2023-11-08] MEDS: FOLVITE 1 MG PO (12:05)
[2023-11-08] MEDS: HEPARIN SC ×4 (12:05→21:03)
[2023-11-08] MEDS: MIRALAX PO (12:06)
[2023-11-08] MEDS: ULTRAM 25 MG PO (13:16)
--- NOTE | 2023-11-08 14:00 | PTOTSP ---
Pt is independent with bed mobility, transfers, and ambulation without need for an assistive device. PT lachelle sign off.
--- NOTE | 2023-11-08 14:55 | CM ---
Met with pt and her at bedside
Pt lives with her in a 3 story home
Describes self as Independent
DME - glucometer, BP cuff
SNF -denies past hx
HH - has has VN in past - unsure of agency
Has ride at d/c
PCP -Dr Lynn
Pharm - [facility]
Given DELUCA
Plan - anticipate home no needs
[2023-11-08 16:43] LABS: Glucose - Point of Care 277 mg/dl (70-99)
--- NOTE | 2023-11-08 20:10 | PTCARENOTE ---
Patient is very upset and crying about the CT scan result from today. at the bedside. Emotional support given to the patient. Patient wants to take shower tonight. DIONI Hernandez made aware. New order for Xanax Po and okay to shower
received.
[2023-11-08] MEDS: PROGRAF 2 MG PO (20:58)
[2023-11-08] MEDS: NEURONTIN 100 MG PO (20:59)
[2023-11-08] MEDS: MELATONIN 5 MG PO (20:59)
[2023-11-08] MEDS: XANAX 0.25 MG PO (20:59)
[2023-11-08 21:28] LABS: Glucose - Point of Care 150 mg/dl (70-99)
[2023-11-09 01:55] LABS: Glucose - Point of Care 60 mg/dl (70-99)
[2023-11-09 02:13] LABS: Glucose - Point of Care 88 mg/dl (70-99)
[2023-11-09 03:00] VITALS: BP 163/83
[2023-11-09 04:10] LABS: Glucose - Point of Care 203 mg/dl (70-99)
[2023-11-09 05:36] LABS: Hematocrit 32.5 % (37.0-47.0); Hemoglobin 10.9 g/dL (12.0-16.0); Mean Corp Hgb Conc. 33.5 g/dL (33.0-37.0); Mean Corpuscular Hgb 28.5 pg (27.0-31.0); Mean Corpuscular Volume 85.1 fL (81.0-99.0); Mean Platelet Volume 9.4 fL (7.4-10.4); Platelet Count 282 10^3/uL (130-400); Red Blood Cell Count 3.82 10^6/uL (4.20-5.40); Red Cell Dist. Width 13.5 % (11.5-14.5); White Blood Cell Count 6.7 10^3/uL (4.8-10.8)
[2023-11-09] MEDS: SYNTHROID 100 MCG PO (05:58)
[2023-11-09 06:00] VITALS: BMI 21.7
[2023-11-09] MEDS: [UNRECOGNIZED DRUG - OTHER] SC ×3 (06:00→17:08)
[2023-11-09] MEDS: INSULIN REGULAR SC ×3 (06:00→17:08)
[2023-11-09 06:03] LABS: Glucose - Point of Care 171 mg/dl (70-99)
[2023-11-09 06:38] LABS: Blood Urea Nitrogen 18 mg/dl (7-17); Calcium 9.6 mg/dl (8.4-10.2); Carbon Dioxide 26 mmol/L (22-30); Chloride 104 mmol/L (98-107); Estimated Creatinine Clearance 61 ml/min; Glucose 164 mg/dl (70-99); Iron 34 ug/dl (37-170); Magnesium 1.9 mg/dl (1.6-2.3); Phosphorus 4.3 mg/dl (2.5-4.5); Potassium 4.4 mmol/L (3.5-5.1); Sodium 137 mmol/L (135-145); eGFR > 60.00
[2023-11-09 06:47] LABS: Percent Saturation 11 % (20-50); Total Iron Binding Capacity 292 ug/dl (265-497)
[2023-11-09 07:05] LABS: Ferritin 11.8 ng/ml (11.1-264.0)
--- NOTE | 2023-11-09 07:20 | PN.DE.MGMTRT ---
Insulin Management
- -
11/09/2023: Diabetes consult for insulin pump management, follow up
Patient admitted with l sided flank pain, PERKINS and fatigue. PMH CAD, anxiety, renal transplant, T1DM initially diagnosed at 9 yrs old, routinely follows up with her Endocrine team Dr. Le.
Pt has omni pod 5 insulin pump with Dexcom G6 CGM. Current A1C 8.3%, Cr 0.8, eGFR > 60
Glucose stable and in range, premeal 60 to 277 yesterday, fasting 171 this AM.
Insulin pump and CGM in place.
Patient is awake alert and oriented able to discuss diabetes management. Patient states her diabetes is very brittle, she has been to [facility] and they could not control her glucose. She feels the pump has helped her avoid
significant highs and lows.
Basal of 0.6, ICR 1:15, Sensitivity 70, 24 hr total of 14.4 units
Will make no changes to her pump settings at tis time
Pt will f/u with her Welder Assembler Dr. Le post discharge
Diabetes History
- -
Type of Diabetes: 1
Pre-Admission Diabetes Regimen
11/09/23
05:28
Creatinine 0.8
Lab Results
Hemoglobin A1c 8.3 % (4.0-5.6) H 11/07/23 06:26
Insulin Pump Settings
IP Diabetes Regimen
11/08/23 11/08/23 11/08/23
12:04 16:42 21:26
Glucose
POC Glucose 166 H 277 H 150 H
11/09/23 11/09/23 11/09/23
01:53 02:09 04:08
Glucose
POC Glucose 60 L 88 203 H
11/09/23 11/09/23
05:28 06:02
Glucose 164 H
POC Glucose 171 H
Patient Education
[2023-11-09] MEDS: PROGRAF 3 MG PO (07:37)
[2023-11-09] MEDS: FOLVITE 1 MG PO (07:37)
[2023-11-09] MEDS: SENOKOT-S 1 TABLET PO ×2 (07:37→20:44)
[2023-11-09] MEDS: MAGNESIUM OXIDE 500 MG PO (07:37)
[2023-11-09] MEDS: LASIX 40 MG PO (07:37)
[2023-11-09] MEDS: APRESOLINE 10 MG PO ×2 (07:37→20:45)
[2023-11-09] MEDS: DELTASONE 5 MG PO (07:37)
[2023-11-09] MEDS: LOW STRENGTH ASPIRIN 81 MG PO (07:37)
[2023-11-09] MEDS: MIRALAX 17 GRAMS PO (07:37)
[2023-11-09 07:41] VITALS: BP 153/83
[2023-11-09] MEDS: HEPARIN SC ×2 (07:46→20:50)
[2023-11-09 07:54] LABS: Glucose - Point of Care 141 mg/dl (70-99)
--- NOTE | 2023-11-09 10:55 | CON.PUL ---
Consultation
Consultation Request
Date/Time Consultation Requested: 11/09/2023 - 730
Date/Time Consultation Performed: 11/09/2023 - 5
Requesting Provider: Dr. Carreon
Performing Provider: Dr. Mccarty
Reason for Consultation: Pulmonary nodules
Medical History
-
Chief Complaint: Chest pain
History of Present Illness:
63-year-old female with a past medical history of DM type I, history of ESRD s/p donor kidney transplant, history of sarcoidosis, CAD s/p stents to LAD, RCA + LCx, HTN, HLD, hypothyroidism and history of breast cancer who presents with
chest pain since last week also involving her left scapula and neck. Pain was relieved by nitroglycerin on the morning of arrival on 11/06/2023. Patient also endorsing SOB, fatigue, nausea and LH. Patient was hypotensive in triage to 85/63,
afebrile to 98 �F, breathing at 18 breaths/min and saturating 99% on room air. Initial labs showed a negative troponin of <0.012, proBNP of 755, lipase 36, and initial POCT was 178. She was admitted to telemetry with cardiology consulted. She
underwent an echo on 11/08/2023 which showed no significant change compared to prior from 01/2022 with LVEF 61%, mild LVH, mild�moderate AI and normal RV size/function. She had a stress test done also on the same day showing LVEF 51% with gated
imaging showing normal wall motion and thickening of all myocardial segments, with a small, mild, fixed basilar inferolateral and basilar inferior defect. Due to her having abdominal pain with nausea, appetite loss, she obtained a CT A/P with IV/PO
contrast on 11/07/2023 showing 2 small pulmonary nodules with a 2.5 mm nodule in the left costophrenic angle, and a 2.9 mm GGO in the right posterior lung base. There also was a 10 mm enhancing right renal mass suspicious for renal cell carcinoma,
evidence of left pelvic transplant kidney with no obstructive uropathy, no evidence of bowel obstruction, and a suspected treated metastatic lesion in the liver with a 1.1 cm space-occupying lesion in the left hepatic lobe and additional 5 mm or
less lesions as well in the liver. Due to her lung nodules, and other abnormal findings on the CT A/P, pulmonary service now consulted for additional recommendations.
When I saw the patient she was standing in her room in no acute distress on room air breathing comfortably. We discussed her CT A/P findings and she has no recollection of any liver lesions or a right-sided stillaguamish kidney lesion. She did have
imaging done at [facility] with a whole-body PET/CT on 06/10/2023 and prior to that had a CT chest with IV contrast on 05/20/2023. This LLL lung nodule was present on this prior CT chest from 05/12/2023 and had measured 4 mm at that time. There is
however no mention of this RLL GGO. She also has a nodular consolidation in the right middle lobe containing air bronchograms measuring 1.8 x 1.5 which showed mild FDG uptake with max SUV of 3.2 via her PET/CT from 06/10/2023. This had gone down in
size from 2 x 1.6 cm on her last CT chest from 05/12/2023. Patient overall feels fine. Denies chest pain, headache, abdominal pain, fevers or chills.
PMHx: DM type I, ESRD s/p donor kidney transplant (2001 at [facility]), history of sarcoidosis, CAD s/p stents to LAD (1994), RCA + LCx (2020), hypertension, hyperlipidemia, hypothyroidism, history of hyponatremia, neuropathy, history of
stroke, history of breast cancer, arthritis, history of kidney stone
PSHx: donor renal transplant (2001), coronary stent to RCA + LCx (March 2021), PCI to LAD (1994), hand surgery
Past Medical History
Past Medical History: Other (Above as per HPI)
Past Surgical History: Other (Above as per HPI)
Social History
Tobacco: Non-smoker
Alcohol: Occasional
Drug: None
Family History
Family History: CAD (Mother), Cancer (Mother: Bone cancer) and Hypertension (Father)
Allergies / Home Medications
Allergies
Allergy/AdvReac Type Severity Reaction Status Date / Time
Penicillins Allergy Shortness Verified 11/08/23 20:14
of Breath
prochlorperazine Allergy Anxiety Verified 11/08/23 20:14
[From Compazine]
Sulfa (Sulfonamide Allergy Rash Verified 11/08/23 20:14
Antibiotics)
Home Medications
�Medication �Instructions �Recorded �Confirmed �Last Taken �Type
aspirin 81 mg chewable tablet 81 mg PO DAILY Blood clot 02/12/22 11/06/23 02/12/22 08:00 History
prevention/tx
ergocalciferol (vitamin D2) 1,250 1,250 mcg PO MO Supplement 02/12/22 11/06/23 02/09/22 08:00 History
mcg (50,000 unit) capsule
folic acid 1 mg tablet 1 mg PO DAILY Supplement 02/12/22 11/06/23 02/12/22 08:00 History
furosemide 40 mg tablet 40 mg PO DAILY Fluid 02/12/22 11/06/23 02/12/22 08:00 History
retention/Swelling
magnesium oxide 400 mg (241.3 mg 400 mg PO DAILY Supplement 02/12/22 11/06/23 02/12/22 08:00 History
magnesium) tablet
prednisone 5 mg tablet 5 mg PO DAILY Transplant 02/12/22 11/06/23 02/12/22 08:00 History
tacrolimus 1 mg capsule, 2 mg PO QPM@2000 Transplant 02/12/22 11/06/23 02/11/22 20:00 History
immediate-release
tacrolimus 1 mg capsule, 3 mg PO DAILY@0800 Transplant 02/12/22 11/06/23 02/12/22 08:00 History
immediate-release
gabapentin 100 mg capsule 100 mg PO HS Pain 11/06/23 11/06/23 Unknown History
levothyroxine 100 mcg tablet 100 mcg PO DAILY Thyroid 11/06/23 11/06/23 Unknown History
Review of Systems
-
History Source: Patient
All other systems: Negative unless noted
Vitals / Labs / Diagnostic Testing
Vital Signs
Temp Pulse Resp BP Pulse Ox
98.2 F 84 16 153/83 99
11/09/23 07:41 11/09/23 07:41 11/09/23 07:41 11/09/23 07:41 11/09/23 07:41
Lab Data
11/09/23 05:28
11/09/23 05:28
Diagnostic Testing:
Physical Exam
-
HEENT: Normocephalic and Anicteric
Cardiovascular: S1/S2 and Murmur (+GORDO)
Respiratory: Clear, Wheeze (n), Rales (n) and Rhonchi (n)
GI: Soft, Non Distended, Non Tender and Normal Bowel Sounds
Neurology: AO x 3 and Tremors (n)
Skin: Warm and Dry
General: Comfortable, Fever (n) and Chills (n)
Assessment
-
Assessment: 63-year-old female with a PMHx of DM type I on insulin pump, history of ESRD s/p donor kidney transplant, history of sarcoidosis, CAD s/p stents to LAD, RCA + LCx, HTN, HLD, hypothyroidism and history of breast cancer who
presents with chest pain, found to have negative troponin x4 and was admitted to telemetry for further management. Cardiology consulted for additional workup. She also endorsed abdominal pain with nausea and appetite loss, and CT A/P showed 2
small pulmonary nodules with multiple liver lesions and a 10 mm enhancing right renal mass suspicious for RCC. Given the findings of these lung nodules and additional abnormal findings on her CT abdomen/pelvis, pulmonary service now consulted for
additional management/recommendations.
Chronic conditions SPONGE BUFFER: DM type I, ESRD s/p donor kidney transplant (2001 at [facility]), history of sarcoidosis, CAD s/p stents to LAD (1994), RCA + LCx (2020), hypertension, hyperlipidemia, hypothyroidism, history of hyponatremia,
neuropathy, history of stroke, history of breast cancer, arthritis, history of kidney stone
Impression:
#Abnormal CT Abd/Pelvis with multiple pulmonary nodules, multiple hepatic lesions and a 10 mm enhancing right renal mass suspicious for RCC -lung nodules are small, with a 2.5 mm nodule in the LLL +3 mm GGO in posterior RLL
#History of sarcoidosis
#History of ESRD s/p DDRT ([address] [place] [address])
#DM type 1 c/b hyperglycemia
#Iron deficiency anemia
#History of breast cancer s/p XRT + lumpectomy
Plan:
- The nodules that are seen on CT A/P are small and I am not concerned, however I am unable to see the remainder of the lung parenchyma. Hence I will order a dedicated CT chest to evaluate for any other lung nodules in the remainder of the lung
[place]
- She did have imaging done at [facility] with a whole-body PET/CT on 06/10/2023 and prior to that had a CT chest with IV contrast on 05/20/2023, and there is mention of a LLL 4mm nodule on both these studies. There is however no mention of this RLL GGO.
She also has a nodular consolidation in the right middle lobe containing air bronchograms measuring 1.8 x 1.5 which showed mild FDG uptake with max SUV of 3.2 via her PET/CT from 06/10/2023. This had gone down in size from 2 x 1.[address]
chest from 05/12/2023.
- Also no mention of these liver lesions with a suspected treated metastatic lesion in the posterior right lobe and a 1.1 cm lesion in the left lobe - would obtain prior abdominal imaging, if possible.
- Maintain SpO2 >90-94% with supplemental O2 as needed
- Incentive spirometer encouraged
- She should follow-up with her team at [facility] following discharge for any additional imaging
- Oncology consult
- Ischemic workup as per cardiology
- Replete electrolytes with K>4, Mg>2
- Maintain euglycemia with goal BG >100 and <180
- prn nebulized bronchodilators
- DVT ppx
Pulmonary service will continue to follow along.
Total time spent today was 55 minutes for this encounter. Time includes reviewing laboratory test/imaging results, reviewing pertinent medical records, obtaining and reviewing medical history, performing an appropriate exam, ordering medications,
tests and procedures. Time also includes documentation of this encounter, coordinating patient care and communicating with other healthcare professionals. Total time does not include separately billed tests performed on this date of service.
Data:
CT A/P with IV/PO Contrast 11-07-2023:
Pulmonary nodules. 2.5 mm nodule in the left costophrenic angle. 2.9 mm groundglass nodule in the posterior right lung base. Advise comparison with any prior outside examination.
Suspected treated metastatic lesion in the liver along the posterior right lobe margin measuring approximately 3 cm. At the junction of the medial and lateral segments of the left lobe there is a 1.1 cm low-attenuation space-occupying lesion. There
are additional tiny 5 mm or less low-attenuation hepatic structures which are too small to fully characterize. The possibility of metastatic disease cannot be entirely excluded. Advise direct comparison with any prior outside examination.
Severe bilateral stillaguamish renal cortical atrophy. 10 mm enhancing right renal mass suspicious for renal cell carcinoma. Advise direct comparison with any prior outside examination.
Left pelvic transplant kidney. No obstructive uropathy. Few tiny renal cortical cysts.
No evidence of bowel obstruction.
Constipation with moderate to large fecal burden.
Under distention versus mild gastric wall thickening, most pronounced in the region of the gastric cardia, and to a lesser degree in the region of the antrum. Consider further evaluation with endoscopy.
Outside imaging via [facility]:
Whole-body PET/CT � 06/10/2023: Comparison: Whole-body bone scan 05/12/2023, CT chest, abdomen, pelvis 05/12/2023, FDG PET/CT 09/24/2020
Impression:
1. Right middle lobe opacity with mild FDG uptake has slightly decreased in size, favoring infectious/inflammatory etiology. Additional 4 mm left lower lobe pulmonary nodule, potentially inflammatory as well. Recommend follow-up with diagnostic CT
chest in 2-3 months
2. No other sites of FDG avid disease
CT chest with IV contrast � 05/12/2023: Comparison: Breast MRI from August 2022
Impression:
1. New nodular consolidation within the right lung since the PET/CT from September 2020, more conspicuous than on the breast MRI from August. Considerations include treatment induced effects while residual pneumonia must also be considered and tumor
recurrence cannot be excluded.
2. More conspicuous small nodule in the left lower, to which difference better inspiration today likely contributes, more likely to represent a benign etiology than a cancer manifestation.
3. No significant change in treatment induced alterations within the left breast
--- NOTE | 2023-11-09 11:08 | CON.ONC ---
Impression
Impression
Imaging abnormalities with hx breast cancer on immunosuppression
Plan
Plan
She is scheduled for evalaution with her medical oncologist @ the [facility] next week-- she recalls having liver evaluation for micronodular adenomas and follows with [place] [facility] for ? subcm pulmonary nodules though she is unaware of renal lesion--
hold further investigation in this regard pending f/u
Patient History
History of Present Illness
Pleasant 63yo WF with hs remote renal transplant and recent hx in last 5 years of early stage node negative breast cancer s/p lumpctomy/SLND treated with chemoimmunotherapy for HR/[id number] pos as she was intolerant of AI therapy then received
radiation therapy for local relapse. She is admitted with chest pain, noncardiac accompanying mild dyspepsia/ LUIGI prompted CT scan AP noting 3cm peripheral right lobe 'treated' focus and mid-left lobe 1.1cm lesion with subcm hypodense structure in
both lobes, pancreatic atrophy and enhancing midpole mass of rosebud right kidney suspicious for renal cell w/o suspicious bone lesions
Past-Medical/Surgical History
IRDM; hypothyroid; HTN; CAD s/p cardiac stenting; sarcoidosis
Patient Medication
�Medication �Instructions �Recorded �Confirmed �Last Taken �Type
aspirin 81 mg chewable tablet 81 mg PO DAILY Blood clot 02/12/22 11/06/23 02/12/22 08:00 History
prevention/tx
ergocalciferol (vitamin D2) 1,250 1,250 mcg PO MO Supplement 02/12/22 11/06/23 02/09/22 08:00 History
mcg (50,000 unit) capsule
folic acid 1 mg tablet 1 mg PO DAILY Supplement 02/12/22 11/06/23 02/12/22 08:00 History
furosemide 40 mg tablet 40 mg PO DAILY Fluid 02/12/22 11/06/23 02/12/22 08:00 History
retention/Swelling
magnesium oxide 400 mg (241.3 mg 400 mg PO DAILY Supplement 02/12/22 11/06/2322 08:00 History
magnesium) tablet
prednisone 5 mg tablet 5 mg PO DAILY Transplant 02/12/22 11/06/23 02/12/22 08:00 History
tacrolimus 1 mg capsule, 2 mg PO QPM@2000 Transplant 02/12/22 11/06/23 02/11/22 20:00 History
immediate-release
tacrolimus 1 mg capsule, 3 mg PO DAILY@0800 Transplant 02/12/22 11/06/23 02/12/22 08:00 History
immediate-release
gabapentin 100 mg capsule 100 mg PO HS Pain 11/06/23 11/06/23 Unknown History
levothyroxine 100 mcg tablet 100 mcg PO DAILY Thyroid 11/06/23 11/06/23 Unknown History
Active Medications
Generic Name Dose Route Start Last Admin
Trade Name Freq PRN Reason Stop Dose Admin
Acetaminophen 650 mg 11/06/23 22:56
Acetaminophen 325 Mg Tablet PO 12/04/23 22:55
Q4HPRN PRN
Mild Pain / Temp > 101
Al Hydrox/Mg Hydrox/Simethicone 30 ml 11/07/23 09:56 11/07/23 10:30
Mag/Al/Simethicone Suspension 30 Ml Cup PO 12/05/23 09:55 30 ml
QIDPRN PRN Administration
indigestion heart burn
Alprazolam 0.25 mg 11/08/23 20:05 11/08/23 20:59
Alprazolam 0.25 Mg Tablet PO 12/06/23 20:04 0.25 mg
Q8HPRN PRN Administration
anxiety
Aspirin 81 mg 11/07/23 08:00 11/09/23 07:37
Aspirin 81 Mg Chewable Tablet PO 12/05/23 07:59 81 mg
DAILY ADRY Administration
Dextrose 12.5 grams 11/06/23 22:56
Dextrose 50% (0.5 Grams/Ml) 50 Ml Syringe IV 12/04/23 22:55
[id number] PRN
hypoglycemia
Protocol
Folic Acid 1 mg 11/07/23 08:00 11/09/23 07:37
Folic Acid 1 Mg Tablet PO 12/05/23 07:59 1 mg
DAILY ADRY Administration
Furosemide 40 mg 11/07/23 08:00 11/09/23 07:37
Furosemide 40 Mg Tablet PO 12/05/23 07:59 40 mg
DAILY ADRY Administration
Gabapentin 100 mg 11/06/23 22:56 11/08/23 20:59
Gabapentin 100 Mg Capsule PO 12/04/23 22:55 100 mg
HS ADRY Administration
Glucagon 1 mg 11/06/23 22:56
Glucagon 1 Mg Vial IM 12/04/23 22:55
PRN PRN
hypoglycemia
Protocol
Heparin Sodium 5,000 units 11/07/23 08:00 11/09/23 07:46
Heparin 5,000 Units/Ml 1 Ml Vial SC 12/05/23 07:59 Not Given
Q12 ADRY
Hydralazine HCl 5 mg 11/06/23 22:56 11/08/23 02:46
Hydralazine 20 Mg/Ml Vial IV 12/04/23 22:55 5 mg
Q6HPRN PRN Administration
SBP > 180
Hydralazine HCl 10 mg 11/07/23 20:00 11/09/23 07:37
Hydralazine 10 Mg Tablet PO 12/05/23 19:59 10 mg
BID ADRY Administration
Levothyroxine Sodium 100 mcg 11/07/23 06:00 11/09/23 05:58
Levothyroxine 100 Mcg Tablet PO 12/05/23 05:59 100 mcg
DAILY@0600 ADRY Administration
Magnesium Oxide 500 mg 11/07/23 08:00 11/09/23 07:37
Magnesium Oxide 500 Mg Tablet PO 12/05/23 07:59 500 mg
DAILY ADRY Administration
Melatonin 5 mg 11/07/23 22:00 11/08/23 20:59
Melatonin 5 Mg Tablet PO 12/05/23 21:59 5 mg
HS ADRY Administration
Ondansetron HCl 4 mg 11/06/23 22:56
Ondansetron 4 Mg/2 Ml Vial IV 12/04/23 22:55
Q6HPRN PRN
nausea and vomiting
Patient Own Medication 0 unit 11/07/23 00:00 11/09/23 06:00
Insulin Pump - Patient's Own Concentrated Humulin R (U-500) SC 12/05/23 00:00 Not Given
Q6 ADRY
Patient Own Medication 0 unit 11/06/23 22:56
Insulin Pump - Patient's Own Concentrated Humulin R (U-500) SC 12/04/23 22:55
PRN PRN
hyperglycemia
Polyethylene Glycol 17 grams 11/08/23 08:00 11/09/23 07:37
Polyethylene Glycol Powder 17 Grams Packet PO 12/06/23 07:59 17 grams
DAILY ADRY Administration
Prednisone 5 mg 11/07/23 08:00 11/09/23 07:37
Prednisone 5 Mg Tablet PO 12/05/23 07:59 5 mg
DAILY ADRY Administration
Senna/Docusate Sodium 1 tablet 11/08/23 08:00 11/09/23 07:37
Docusate W/Senna (Suzan-Colace) Tablet PO 12/06/23 07:59 1 tablet
BID ADRY Administration
Sodium Chloride 0 flush 11/06/23 23:00
Sodium Chloride 0.9% (Flush) Syringe IV 12/04/23 22:59
PER PROTOCOL ADRY
Tacrolimus 3 mg 11/07/23 08:00 11/09/23 07:37
Tacrolimus 1 Mg Capsule PO 12/05/23 07:59 3 mg
DAILY@0800 ADRY Administration
Tacrolimus 2 mg 11/07/23 20:00 11/08/23 20:58
Tacrolimus 1 Mg Capsule PO 12/05/23 19:59 2 mg
QPM@2000 ADRY Administration
Review of Systems
-
History Source: Patient
All Other Systems: Reviewed and Negative
Physical Exam
-
General: No Apparent Distress
HEENT: Moist Mucous Membranes
Cardiology: Normal Sinus Rhythm
Pulmonary: Clear
GI: Soft and Normal Bowel Sounds
Musculoskeletal: No Clubbing, No Cyanosis and No Edema
Neurology: Non Focal
Skin: Warm
Psych: Calm
Labs
Lab Results
WBC 6.7 10^3/uL (4.8-10.8) 11/09/23 05:28
RBC 3.82 10^6/uL (4.20-5.40) L 11/09/23 05:28
Hgb 10.9 g/dL (12.0-16.0) L 11/09/23 05:28
Hct 32.5 % (37.0-47.0) L 11/09/23 05:28
MCV 85.1 fL (81.0-99.0) 11/09/23 05:28
MCH 28.5 pg (27.0-31.0) 11/09/23 05:28
MCHC 33.5 g/dL (33.0-37.0) 11/09/23 05:28
RDW 13.5 % (11.5-14.5) 11/09/23 05:28
Plt Count 282 10^3/uL (130-400) 11/09/23 05:28
MPV 9.4 fL (7.4-10.4) 11/09/23 05:28
Abs Immat Gran (auto) 0.0 10^3/uL (0-0.05) 11/06/23 17:06
Absolute Neuts (auto) 3.5 10^3/uL (1.4-6.5) 11/06/23 17:06
Absolute Lymphs (auto) 2.0 10^3/uL (1.2-3.4) 11/06/23 17:06
Absolute Monos (auto) 0.6 10^3/uL (0.1-0.6) 11/06/23 17:06
Absolute Eos (auto) 0.2 10^3/uL (0-0.7) 11/06/23 17:06
Absolute Basos (auto) 0.1 10^3/uL (0-0.2) 11/06/23 17:06
Immature Gran % 0.2 % (0-0.5) 11/06/23 17:06
Neutrophils % 54.8 % (42.2-75.2) 11/06/23 17:06
Lymphocytes % 31.1 % (20.5-51.1) 11/06/23 17:06
Monocytes % 8.7 % (1.7-9.3) 11/06/23 17:06
Eosinophils % 3.8 % (0-6) 11/06/23 17:06
Basophils % 1.4 % (0-2) 11/06/23 17:06
Creatinine 0.8 mg/dL (0.6-1.0) 11/09/23 05:28
Vital Signs
Vital Signs
Temp Pulse Resp BP Pulse Ox
98.2 F 84 16 153/83 99
11/09/23 07:41 11/09/23 07:41 11/09/23 07:41 11/09/23 07:41 11/09/23 07:41
[2023-11-09 11:39] LABS: Glucose - Point of Care 266 mg/dl (70-99)
[2023-11-09 11:45] VITALS: BP 144/79
--- NOTE | 2023-11-09 12:58 | W.PN.HOSP.TC ---
Today's Communication/Plan
-
Appreciate pulmonary, oncology, urology and psychiatry given possible cancer diagnosis
Assessment / Plan
Assessment / Plan
Physical Exam
General: Not in acute distress
HEENT: Moist mucous membranes
Respiratory: Clear; No Wheezes, Rales or Rhonchi
Cardiac: S1/S2 and Regular Rhythm; No Murmur
GI: Soft, Non Tender, Non Distended, Normal Bowel Sounds, insulin pump in place in RLQ
Musculoskeletal: No Cyanosis and No Edema
Neuro: AAO x 3
Psych: Calm
A/P: Patient is a 63y F with PMH significant for ASCVD, renal transplant and DM-II who presents to ED complaining of left sided back pain and 2 weeks of fatigue and PERKINS.
Left sided Pain near scapula, improved with nitro as per patient
ASCVD
- Troponin neg x4
- Cardiology evaluation appreciated checked ECHO, stress test --> no ACS
- Continue current CV medications.
- Prior h/o coronary stents.
- UA neg
Fatigue / PERKINS, Reporting poor appetite intermittent nausea suprapubic pain/tenderness past few weeks
-PT/OT eval
-Prograf level acceptable in the 3 to 5 range, discussed with nephrology
-CT abd/pelvis returned concerning for malignancy GI, right renal carcinoma, possible liver mets, and pulm nodules.
11/06 CT abd/pelvis IV and oral contrast appreciated:
-Pulmonary nodules. 2.5 mm nodule in the left costophrenic angle. 2.9 mm groundglass nodule in the posterior right lung base. Advise comparison with any prior outside examination.
-Suspected treated metastatic lesion in the liver along the posterior right lobe margin measuring approximately 3 cm. At the junction of the medial and lateral segments of the left lobe there is a 1.1 cm low-attenuation space-occupying lesion. There
are additional tiny 5 mm or less low-attenuation hepatic structures which are too small to fully characterize. The possibility of metastatic disease cannot be entirely excluded. Advise direct comparison with any prior outside examination.
-Severe bilateral venetie ira renal cortical atrophy. 10 mm enhancing right renal mass suspicious for renal cell carcinoma. Advise direct comparison with any prior outside examination.
-Left pelvic transplant kidney. No obstructive uropathy. Few tiny renal cortical cysts.
-No evidence of bowel obstruction.
-Constipation with moderate to large fecal burden.
-Under distention versus mild gastric wall thickening, most pronounced in the region of the gastric cardia, and to a lesser degree in the region of the antrum. Consider further evaluation with endoscopy.
-Consulted pulmonary, urology and oncology -- appreciate recommendations
DM-II
- A1c appreciated 8.3
-sugars appear well controlled at this time, patient managing with her pump
HTN
started on Hydralazine 10 mg BID as per Cardio
cont prn IV hydralazine
Hypothyroidism
- Continue current T4 supplementation.
DVT Prophylaxis: Subcut Heparin
Code Status: Full
Anticipated Discharge: 24 - 48 hours
Subjective/Interval History
-
Date of Service: November 09, 2023
Patient was seen and examined. She reported feeling depressed from her CT findings.
Objective Data
-
Labs:
Laboratory Results
11/09/23
05:28
WBC 6.7
Hgb 10.9 L
Hct 32.5 L
Plt Count 282
Sodium 137
Potassium 4.4
Chloride 104
Carbon Dioxide 26
BUN 18 H
Creatinine 0.8
Glucose 164 H
Calcium 9.6
Vital Signs:
Vital Signs
Temp Pulse Resp BP Pulse Ox
98.3 F 93 16 144/79 99
11/09/23 11:45 11/09/23 11:45 11/09/23 11:45 11/09/23 11:45 11/09/23 11:45
I&O
11/08/23 11/09/23 11/10/23
06:59 06:59 06:59
Intake Total 840 / 840 480 / 480
Balance 840 / 840 480 / 480
[2023-11-09] MEDS: ULTRAM 25 MG PO (13:22)
--- NOTE | 2023-11-09 15:01 | CONS.URO ---
Consultation
-
Date/Time Consultation Performed: 11/10/23 0717
Performing Provider: Jhon
Reason for Consultation: right renal mass
Medical History
History of Present Illness
admitted on 11/05 with chest/back pain
s/p renal transplantation > 20 years ago
Past Medical History
Past Medical History: Other (IRDM; hypothyroid; HTN; CAD s/p cardiac stenting; sarcoidosis)
Past Surgical History: Urological (renal transplantation)
Family History
Family History: Reviewed & Not Pertinent
Allergies/Home Medications
Allergies
Allergy/AdvReac Type Severity Reaction Status Date / Time
Penicillins Allergy Shortness Verified 11/08/23 20:14
of Breath
prochlorperazine Allergy Anxiety Verified 11/08/23 20:14
[From Compazine]
Sulfa (Sulfonamide Allergy Rash Verified 11/08/23 20:14
Antibiotics)
Home Medications
�Medication �Instructions �Recorded �Confirmed �Type
aspirin 81 mg chewable tablet 81 mg PO DAILY Blood clot 02/12/22 11/06/23 History
prevention/tx
ergocalciferol (vitamin D2) 1,250 1,250 mcg PO MO Supplement 02/12/22 11/06/23 History
mcg (50,000 unit) capsule
folic acid 1 mg tablet 1 mg PO DAILY Supplement 02/12/22 11/06/23 History
furosemide 40 mg tablet 40 mg PO DAILY Fluid 02/12/22 11/06/23 History
retention/Swelling
magnesium oxide 400 mg (241.3 mg 400 mg PO DAILY Supplement 02/12/22 11/06/23 History
magnesium) tablet
prednisone 5 mg tablet 5 mg PO DAILY Transplant 02/12/22 11/06/23 History
tacrolimus 1 mg capsule, 2 mg PO QPM@2000 Transplant 02/12/22 11/06/23 History
immediate-release
tacrolimus 1 mg capsule, 3 mg PO DAILY@0800 Transplant 02/12/22 11/06/23 History
immediate-release
gabapentin 100 mg capsule 100 mg PO HS Pain 11/06/23 11/06/23 History
levothyroxine 100 mcg tablet 100 mcg PO DAILY Thyroid 11/06/23 11/06/23 History
Physical Exam
Vital Signs
Vital Signs
Temp Pulse Resp BP Pulse Ox
98.3 F 93 16 144/79 99
11/09/23 11:45 11/09/23 11:45 11/09/23 11:45 11/09/23 11:45 11/09/23 11:45
Lab / Testing Results
Laboratory Results
11/09/23 05:28
11/09/23 05:28
Physical Exam
adult female in NAD
GI: Soft, Non Tender and Non Distended
Genito-urinary: No Costovertebral Tend
Skin: Warm
Neuro: Awake
Psych: Calm
Assessment / Plan
-
Small Right Renal Mass -- possibly malignant
based upon size, no urgency to definitively establish diagnosis or treat exists -- she will f/u with Oncology team at [facility]
Data Reviewed
-
CT Scan: Image personally visualized and interpreted
Old Records: Reviewed
[2023-11-09 15:11] VITALS: BP 135/68
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
[2023-11-09 16:58] LABS: Glucose - Point of Care 175 mg/dl (70-99)
[2023-11-09] MEDS: PROGRAF 2 MG PO (20:44)
[2023-11-09 21:08] LABS: Glucose - Point of Care 58 mg/dl (70-99)
[2023-11-09 21:29] LABS: Glucose - Point of Care 64 mg/dl (70-99)
[2023-11-09 21:50] LABS: Glucose - Point of Care 78 mg/dl (70-99)
[2023-11-09] MEDS: NEURONTIN 100 MG PO (21:50)
[2023-11-09] MEDS: MELATONIN 5 MG PO (21:50)
[2023-11-09 22:16] LABS: Glucose - Point of Care 90 mg/dl (70-99)
[2023-11-09 23:00] VITALS: BP 146/71
[2023-11-10 00:09] LABS: Glucose - Point of Care 263 mg/dl (70-99)
[2023-11-10] MEDS: [UNRECOGNIZED DRUG - OTHER] SC ×3 (00:09→13:27)
[2023-11-10] MEDS: INSULIN REGULAR SC ×3 (00:09→13:27)
--- NOTE | 2023-11-10 03:49 | DOWNTIME ---
There was a [employer] Loss Prevention Manager Downtime on 11/10/2023 from 0100 to 11/10/2023 at 0337. Downtime documentation of patient's care, including medication administrations, has been reconciled in the electronic record per guidelines. Refer to the
patient's paper chart under the miscellaneous tab to see printed paper medication records and downtime forms.
[2023-11-10] MEDS: SYNTHROID 100 MCG PO (05:54)
[2023-11-10 06:00] VITALS: BMI 22.1
[2023-11-10] MEDS: XANAX 0.25 MG PO (06:51)
--- NOTE | 2023-11-10 06:51 | W.PN.ONC2 ---
Today's Communication / Plan
-
Discharge home with F/U [facility] med onc follow up to coordinate multiple abnormalities seen on CT scan.
Further imaging at probably should be canceled per her wishes as she is following up [facility].
Oncology will sign off. Call if needed.
Impression
Impression
Chest Pain (left sided back pain and 2 weeks of fatigue and PERKINS)
ASCVD
renal transplant
DM-II who presents to ED complaining of
CT abd/pelvis concerning for malignancy: right renal carcinoma, possible liver mets, and sub-cm pulm nodules x 2 in lower chest.
Plan
Plan
She is scheduled for evaluation with her medical oncologist at [facility] next week.
At this point I would discharge her today with close F/U including additional imaging (Chest CT, PET) at [facility]. No evidence of ACS so stable for discharge.
Lung nodules too small for PET to be diagnostic. Prob needs close follow up but defer to pulmonary.
Urology eval at [facility] for possible RCC.
Subjective/Objective
Chief Complaint
Heme Onc F/U
Subjective
Not happy that we cannot get inpatient PET scan. She said she was told that workup can all be done in hospital more quickly than if she went home. Says this 'whole hospitalization was a waste' and wants to go home. Does not agree to additional CT
imaging (a dedicated chest CT ordered). She feels fine w/o CP just upset she might have a kidney cancer in her creek kidney and has lung nodules that could be malignant.
Vital Signs:
Vital Signs
Temp Pulse Resp BP Pulse Ox
97.7 F 82 14 146/71 100
11/09/23 23:00 11/09/23 23:00 11/09/23 23:00 11/09/23 23:00 11/09/23 23:00
Lab Results:
Laboratory Data
WBC 6.7 10^3/uL (4.8-10.8) 11/09/23 05:28
Hgb 10.9 g/dL (12.0-16.0) L 11/09/23 05:28
Plt Count 282 10^3/uL (130-400) 11/09/23 05:28
eGFR > 60.00 11/09/23 05:28
[facility]
[address] [place] [address]
[phone]

Patient Name: SUHA DÍAZ
: 1960
Unit Number: [id number]
Age/Sex: 63/F
Patient
Location: [address] [place] [address]
Order Provider: Day Carbajal MD
Exam Service Date: 11/07/23

Diagnostic Imaging Report
Signed
Order #:[id number]
Exams: CT Abd/pel W Iv And Oral Contr
PROCEDURES: CT Abd/pel W Iv And Oral Contr
CLINICAL INDICATION: eval persistent abd pain nausea appetite loss . History of renal transplant. History of coronary artery disease. History of breast cancer.
COMPARISON: None.
FINDINGS:
Lower Chest:
Minor postinflammatory pleuroparenchymal scarring in the medial segment of the right middle lobe and lingula. Tiny nodule in the posterolateral left costophrenic angle, 2.5 mm (image 13 series 201). Small groundglass nodule in the posterior right
lung base. 2.9 mm (image 5). No pleural or pericardial effusion.
Abdomen:
Liver: Top normal in size. Along the posterior margin of the right lobe there is a focus of diminished attenuation measuring approximately 3 cm, containing central focal and linear high attenuation. This has the appearance of a treated metastatic
lesion. However, clinical correlation will be necessary.
At the junction of the medial and lateral segment of the left lobe liver, there is a low-attenuation space-occupying lesion measuring 1.1 cm (image 14 series 201). Nonspecific. Cannot entirely be possibility of a metastatic focus. A few additional
tiny (5 mm or less) hypodense structures are also seen in the liver.
Gallbladder: Surgically absent.
Bile Ducts: Within normal limits given patient age and prior cholecystectomy.
Pancreas: Moderate diffuse atrophy.
Spleen: Normal in size.
Adrenals: No adrenal mass.
Kidneys/Ureters: Marked bilateral renal atrophy. No hydronephrosis to suggest obstructive uropathy. 4 mm lower pole calculus on the left. A few additional scattered tiny calcific foci are noted bilaterally, which could represent vascular
calcifications or tiny calculi. Along the posterior midpole cortex of the right kidney there is an enhancing mass measuring 10 mm, suspicious for renal cell carcinoma. (Image 26 series 201).
Left pelvic transplant kidney. No obstructive uropathy. Few tiny renal cortical cysts.
Bowel: No dilated bowel loops or evidence of bowel obstruction. Moderate to large fecal burden, consistent with constipation.
Under distention versus mild gastric wall thickening, most pronounced in the region of the gastric cardia, and to a lesser degree in the region of the antrum. Consider further evaluation with endoscopy.
Appendix: The appendix is normal.
Peritoneum: No free air. No upper abdominal ascites or focal collection/abscess.
Vessels: No aortic aneurysm.
Retroperitoneum: No retroperitoneal periaortic mass or adenopathy.
Abdominal Wall: No anterior abdominal wall hernia.
Pelvis:
No free fluid or focal collection. No inflammatory reaction. No sidewall adenopathy or mass.
Bones:
No suspicious lesions. No compression deformity. Mild facet arthrosis.
IMPRESSION:
Pulmonary nodules. 2.5 mm nodule in the left costophrenic angle. 2.9 mm groundglass nodule in the posterior right lung base. Advise comparison with any prior outside examination.
Suspected treated metastatic lesion in the liver along the posterior right lobe margin measuring approximately 3 cm. At the junction of the medial and lateral segments of the left lobe there is a 1.1 cm low-attenuation space-occupying lesion. There
are additional tiny 5 mm or less low-attenuation hepatic structures which are too small to fully characterize. The possibility of metastatic disease cannot be entirely excluded. Advise direct comparison with any prior outside examination.
Severe bilateral creek renal cortical atrophy. 10 mm enhancing right renal mass suspicious for renal cell carcinoma. Advise direct comparison with any prior outside examination.
Left pelvic transplant kidney. No obstructive uropathy. Few tiny renal cortical cysts.
No evidence of bowel obstruction.
Constipation with moderate to large fecal burden.
Under distention versus mild gastric wall thickening, most pronounced in the region of the gastric cardia, and to a lesser degree in the region of the antrum. Consider further evaluation with endoscopy.
Electronically signed by Wei Prado MD, 11/07/2023 9:22 PM
Radimetrics Dose Report: Up-to-date CT equipment and radiation dose reduction techniques were employed. CTDIvol: 7.0 mGy. DLP: 683 mGy-cm.
Dictated By: Wei Prado MD.
Dictated Date & Time: 11/07/232105
Signed/Co-Signer By: Wei Prado MD /
Signed/Co-Signer Date & Time: 11/07/232121 /
Transcribed by: Wei Prado
Printed Date and Time: @
Physical Exam
Cardiology: Normal Sinus Rhythm, S1 and S2
Pulmonary: Clear
GI: Soft
Extremities: No C/C/E
--- NOTE | 2023-11-10 07:18 | PN.DE.MGMTRT ---
Insulin Management
- -
11/10/2023: Diabetes consult for insulin pump management, follow up
Patient admitted with l sided flank pain, PERKINS and fatigue. PMH CAD, anxiety, renal transplant, T1DM initially diagnosed at 9 yrs old, routinely follows up with her Endocrine team Dr. Le.
Pt has omni pod 5 insulin pump with Dexcom G6 CGM. Current A1C 8.3%, Cr 0.8, eGFR > 60
Glucose stable and in range, premeal 141 to 266 yesterday, 9PM glucose 58, treated - 64 treated - 78 - 90. HS glucose 263 patient took 1.45 units via pump .. Fasting this AM 142.
Insulin pump and CGM in place.
Patient is awake alert and oriented able to discuss diabetes management. Patient states her diabetes is very brittle, she has been to [facility] and they could not control her glucose. She feels the pump has helped her avoid
significant highs and lows.
Due to hypoglycemia 2 consecutive evenings discussed with patient changing evening basal rates. She is agreeable, changed * as follows:
12am .65
2am .45
8am .65
6pm .55*
24 hour basal total 13.35
Sensitivity 70,
I:CHO ratio 15
Pt will f/u with her Museum Exhibit Designer Dr. Le post discharge, for discharge today.
Diabetes History
- -
Type of Diabetes: 1
Pre-Admission Diabetes Regimen
Lab Results
Hemoglobin A1c 8.3 % (4.0-5.6) H 11/07/23 06:26
Insulin Pump Settings
IP Diabetes Regimen
11/09/23 11/09/23 11/09/23
07:52 11:37 16:56
POC Glucose 141 H 266 H 175 H
11/09/23 11/09/23 11/09/23
21:07 21:27 21:49
POC Glucose 58 L 64 L 78
11/09/23 11/10/23
22:14 00:07
POC Glucose 90 263 H
Meal type: Breakfast
Amount consumed: 75%
Patient Education
[2023-11-10 07:46] VITALS: BP 175/99
[2023-11-10 08:00] LABS: Glucose - Point of Care 142 mg/dl (70-99)
[2023-11-10] MEDS: MIRALAX 17 GRAMS PO (08:03)
[2023-11-10] MEDS: MAGNESIUM OXIDE 500 MG PO (08:04)
[2023-11-10] MEDS: PROGRAF 3 MG PO (08:04)
[2023-11-10] MEDS: DELTASONE 5 MG PO (08:04)
[2023-11-10] MEDS: LOW STRENGTH ASPIRIN 81 MG PO (08:05)
[2023-11-10] MEDS: SENOKOT-S 1 TABLET PO (08:05)
[2023-11-10] MEDS: FOLVITE 1 MG PO (08:05)
[2023-11-10] MEDS: HEPARIN 5000 UNITS SC (08:05)
[2023-11-10] MEDS: APRESOLINE 10 MG PO (08:05)
[2023-11-10] MEDS: LASIX 40 MG PO (08:05)
[2023-11-10 09:17] LABS: Hematocrit 35.7 % (37.0-47.0); Mean Corp Hgb Conc. 33.6 g/dL (33.0-37.0); Mean Corpuscular Hgb 28.2 pg (27.0-31.0); Mean Platelet Volume 9.6 fL (7.4-10.4); Platelet Count 268 10^3/uL (130-400); Red Blood Cell Count 4.25 10^6/uL (4.20-5.40); Red Cell Dist. Width 13.4 % (11.5-14.5); White Blood Cell Count 6.4 10^3/uL (4.8-10.8)
--- NOTE | 2023-11-10 09:40 | W.PN.PUL3 ---
Today's Communication / Plan
-
She wishes to transfer her pulmonary care to here at --> I will arrange for outpatient follow up with me in the office for lung nodule surveillance and for full PFTs (she has clinical Sx that resemble asthma, and this needs to be worked up)
She previously was managed at [facility] by Dr. Tristen Alvarado
Please discharge her home with prn albuterol 90mcg/act HFA to be used q4-6 hr prn for SOB and/or wheezing
Follow up with Oncology at [facility] for her abnormal findings on the CT abd/pelvis including her renal mass and the multiple hepatic lesions
Patient being prepared for discharge home. Pulmonary service will now sign off. Please reconsult if there are any additional questions/concerns, or if patient's respiratory status deteriorates.
Assessment
-
Assessment: 63-year-old female with a PMHx of DM type I on insulin pump, history of ESRD s/p donor kidney transplant, history of sarcoidosis, CAD s/p stents to LAD, RCA + LCx, HTN, HLD, hypothyroidism and history of breast cancer who
presents with chest pain, found to have negative troponin x4 and was admitted to telemetry for further management. Cardiology consulted for additional workup. She also endorsed abdominal pain with nausea and appetite loss, and CT A/P showed 2
small pulmonary nodules with multiple liver lesions and a 10 mm enhancing right renal mass suspicious for RCC. Given the findings of these lung nodules and additional abnormal findings on her CT abdomen/pelvis, pulmonary service now consulted for
additional management/recommendations.
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
neuropathy, history of stroke, history of breast cancer, arthritis, history of kidney stone
Impression:
#Abnormal CT Abd/Pelvis with multiple pulmonary nodules, multiple hepatic lesions and a 10 mm enhancing right renal mass suspicious for RCC - lung nodules are small, with a 2.5 mm nodule in the LLL +3 mm GGO in posterior RLL
#History of sarcoidosis
#History of ESRD s/p DDRT ([address] [place] [address])
#DM type 1 c/b hyperglycemia
#Iron deficiency anemia
#History of breast cancer s/p XRT + lumpectomy
Plan:
- The nodules that are seen on CT A/P are small and I am not concerned, however I am unable to see the remainder of the lung parenchyma. CT chest ordered --> I personally reviewed this today and do not see any concerning nodules in remainder of her
lung [place]. There is a 5 mm GGO in the RUL, 3 mm GGO in the RLL and a 3 mm nodule in the LLL.
- She did have imaging done at [facility] with a whole-body PET/CT on 06/10/2023 and prior to that had a CT chest with IV contrast on 05/20/2023, and there is mention of a LLL 4mm nodule on both these studies. There is however no mention of this RLL GGO.
She also has a nodular consolidation in the right middle lobe containing air bronchograms measuring 1.8 x 1.5 which showed mild FDG uptake with max SUV of 3.2 via her PET/CT from 06/10/2023. This had gone down in size from 2 x 1.[address]
chest from 05/12/2023.
- Also no mention of these liver lesions with a suspected treated metastatic lesion in the posterior right lobe and a 1.1 cm lesion in the left lobe - would obtain prior abdominal imaging, if possible.
- Maintain SpO2 >90-94% with supplemental O2 as needed
- Incentive spirometer encouraged
- She should follow-up with her Oncologist at [facility] following discharge
- Oncology consulted --> recs appreciated
- She follows with ophthalmology as an outpatient mainly for her diabetes and for her sarcoidosis, I advised her to continue doing this
- Continue with prednisone 5 mg daily for her kidney transplant as well as her sarcoidosis
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
- Patient endorses nocturnal dyspnea at home as well as SOB with strenuous activity � seem to have worsened after she had a hard word floors installed. Suspicious for undiagnosed asthma. I will check full PFTs in the office, and she should be
discharged home with prn albuterol. Will discuss starting maintenance inhaler in the office.
- Ischemic workup as per cardiology
- Continue ASA + statin
- Replete electrolytes with K>4, Mg>2
- Maintain euglycemia with goal BG >100 and <180
- prn nebulized bronchodilators while she is inpatient
- DVT ppx
Patient is doing well, is on room air breathing comfortably and is ready for discharge. Pulmonary service will now sign off. Thank you for allowing us to be involved in the care of this patient. Please reconsult if there are any additional
questions/concerns, or if patient's respiratory status deteriorates.
Total time spent today was 25 minutes for this encounter. Time includes reviewing laboratory test/imaging results, reviewing pertinent medical records, obtaining and reviewing medical history, performing an appropriate exam, ordering medications,
tests and procedures. Time also includes documentation of this encounter, coordinating patient care and communicating with other healthcare professionals. Total time does not include separately billed tests performed on this date of service.
Data:
CT A/P with IV/PO Contrast 11-07-2023:
Pulmonary nodules. 2.5 mm nodule in the left costophrenic angle. 2.9 mm groundglass nodule in the posterior right lung base. Advise comparison with any prior outside examination.
Suspected treated metastatic lesion in the liver along the posterior right lobe margin measuring approximately 3 cm. At the junction of the medial and lateral segments of the left lobe there is a 1.1 cm low-attenuation space-occupying lesion. There
are additional tiny 5 mm or less low-attenuation hepatic structures which are too small to fully characterize. The possibility of metastatic disease cannot be entirely excluded. Advise direct comparison with any prior outside examination.
Severe bilateral chilkat renal cortical atrophy. 10 mm enhancing right renal mass suspicious for renal cell carcinoma. Advise direct comparison with any prior outside examination.
Left pelvic transplant kidney. No obstructive uropathy. Few tiny renal cortical cysts.
No evidence of bowel obstruction.
Constipation with moderate to large fecal burden.
Under distention versus mild gastric wall thickening, most pronounced in the region of the gastric cardia, and to a lesser degree in the region of the antrum. Consider further evaluation with endoscopy.
Data:
CT Chest 11-10-2023:
There are tiny bilateral pulmonary nodules and a very faint 5 mm groundglass opacity in the right upper lobe. These findings are likely postinflammatory. Recommend repeat imaging in one year to document stability.
No mass or adenopathy. No pleural effusion.
Outside imaging via [facility]:
Whole-body PET/CT � 06/10/2023: Comparison: Whole-body bone scan 05/12/2023, CT chest, abdomen, pelvis 05/12/2023, FDG PET/CT 09/24/2020
Impression:
1. Right middle lobe opacity with mild FDG uptake has slightly decreased in size, favoring infectious/inflammatory etiology. Additional 4 mm left lower lobe pulmonary nodule, potentially inflammatory as well. Recommend follow-up with diagnostic CT
chest in 2-3 months
2. No other sites of FDG avid disease
CT chest with IV contrast � 05/12/2023: Comparison: Breast MRI from August 2022
Impression:
1. New nodular consolidation within the right lung since the PET/CT from September 2020, more conspicuous than on the breast MRI from August. Considerations include treatment induced effects while residual pneumonia must also be considered and tumor
recurrence cannot be excluded.
2. More conspicuous small nodule in the left lower, to which difference better inspiration today likely contributes, more likely to represent a benign etiology than a cancer manifestation.
3. No significant change in treatment induced alterations within the left breast
Subjective Data
-
Date of Service:
Date of Service: November 10, 2023
Chief Complaint: Pulmonary Follow Up
Subjective:
Pt seen this AM - she is feeling well. She is on room air breathing comfortably. She otherwise denies chest pain, SOB, N/V/f/c. She sometimes gets SOb at home during strenuous activity or during sleep. She does not use any inhalers.
Review of Systems
General: Other (negative unless mentioned above)
Objective Data
Data Reviewed
Vital Signs / I&O / Oxygen:
Vital Signs
Temp Pulse Resp BP Pulse Ox
98.2 F 91 16 175/99 100
11/10/23 07:46 11/10/23 07:46 11/10/23 07:46 11/10/23 07:46 11/10/23 07:46
Intake and Output
11/09/23 11/10/23 11/11/23
06:59 06:59 06:59
Intake Total 480 / 480 2160 / 2160
Balance 480 / 480 2160 / 2160
SaO2 100
Physical Exam
General: Respiratory Distress (negative) and Comfortable
HEENT: Normocephalic and Anicteric
Cardiovascular: S1-S2, Murmur (+GORDO) and Peripheral Edema (negative)
Respiratory: Clear, Wheeze (negative), Crackles (negative), Rhonchi (negative) and Non-Labored Respirations
GI: Soft, Non Distended, Non Tender and Normal Bowel Sounds
Neurology: AO x 3 and Tremors (negative)
Skin: Warm, Dry, Cyanosis (negative) and Jaundice (negative)
Labs/Micro/Reports
Lab Data
11/10/23 09:01
11/10/23 09:01
[2023-11-10 09:53] LABS: Glucose - Point of Care 297 mg/dl (70-99)
[2023-11-10 10:16] LABS: Blood Urea Nitrogen 25 mg/dl (7-17); Carbon Dioxide 23 mmol/L (22-30); Chloride 102 mmol/L (98-107); Estimated Creatinine Clearance 61 ml/min; Glucose 160 mg/dl (70-99); Phosphorus 4.2 mg/dl (2.5-4.5); Potassium 4.4 mmol/L (3.5-5.1); Sodium 135 mmol/L (135-145); eGFR > 60.00
--- NOTE | 2023-11-10 12:28 | W.PN.HOSP.TC ---
Today's Communication/Plan
-
Discharge today
Assessment / Plan
Assessment / Plan
Physical Exam
General: Not in acute distress
HEENT: Moist mucous membranes
Respiratory: Clear to Auscultation Bilaterally
Cardiac: S1/S2 and Regular Rhythm
GI: Soft, Non Tender, Non Distended, Normal Bowel Sounds, insulin pump in place in RLQ
Musculoskeletal: No Cyanosis and No Edema
Neuro: AAO x 3
Psych: Calm

Assessment/Plan
Patient is a 63y F with PMH significant for ASCVD, renal transplant and DM-II who presents to ED complaining of left sided back pain and 2 weeks of fatigue and PERKINS.
Left sided Pain near scapula, improved with nitro as per patient, suspected contribution from hypertension
Unable to take Losartan (gets hypotensive), Beta-Lara (low blood sugars), or Calcium Channel Lara (Tacrolimus interaction)
Coronary Artery Disease status post LAD stent 1994 and status post NSTEMI and overlapping mid to distal 3mm and 3 mm Resolute RCA stents and overlapping 2 and 2.5 mm Resolute stent to Circumflex
Small fixed, basilar, inferolateral and basilar inferior defects consistent with infarct and prior RCA disease. No ischemia.
Statin intolerance, now on PCSK9 inhibitor
- Troponin neg x4
- Cardiology evaluation appreciated checked ECHO, stress test --> no ACS
- Continue current CV medications.
- Prior h/o coronary stents.
- Follow-up with Dr. Alexander outpatient
Fatigue / PERKINS, Reporting poor appetite intermittent nausea suprapubic pain/tenderness past few weeks
Status post cadaveric renal transplant at [place] 2001, currently managed at [facility]
Abnormal CT Abd/Pelvis with multiple pulmonary nodules, multiple hepatic lesions and a 10 mm enhancing right renal mass suspicious for RCC -lung nodules are small, with a 2.5 mm nodule in the LLL +3 mm GGO in posterior RLL
Small Right Renal Mass -- possibly malignant
Possible liver metastases
-PT/OT eval
-Prograf level acceptable in the 3 to 5 range, discussed with nephrology
-CT abd/pelvis returned concerning for malignancy GI, right renal carcinoma, possible liver mets, and pulm nodules.
-Consulted pulmonary, urology and oncology -- appreciate recommendations
-Follow-up with oncology team at [facility]
Constipation
-Will need to closely monitor and ensure having bowel movements outpatient
-Bowel regimen
Breast cancer left-sided lumpectomy radiation about 4 years ago possibly treated with Herceptin (obtain records from Pallavi Billingsley cardio outpatient coordinator at [facility])
DM-I
Hypoglycemia
- A1c appreciated 8.3
-sugars appear well controlled at this time, patient managing with her pump
- maintain settings as advised by hospital Diabetes Nurse Practitioner
- Follow-up with Dr. Le and inform him/his office of any changes in the settings
Hypertensive Urgency
-Continue Hydralazine 10 mg BID and follow-up closely outpatient
-Low sodium diet
cont prn IV hydralazine
Hypothyroidism
- Continue current T4 supplementation.
History of Sarcoidosis?
Acute Anxiety
-Continue Xanax prn for acute anxiety
DVT Prophylaxis: Subcut Heparin
Code Status: Full
More than 30 minutes spent in discharge including
Final examination of the patient
Summarizing hospital stay
Instructions for continuing care to all relevant caregivers
Preparation of discharge records, prescriptions, and referral forms
Total time spent (in minutes): 42
Anticipated Discharge: Today
Subjective/Interval History
-
Date of Service: November 10, 2023
Patient was seen and examined. She denied any new significant symptoms or complaints.
Objective Data
-
Labs:
Laboratory Results
11/10/23
09:01
WBC 6.4
Hgb 12.0
Hct 35.7 L
Plt Count 268
Sodium 135
Potassium 4.4
Chloride 102
Carbon Dioxide 23
BUN 25 H
Creatinine 0.8
Glucose 160 H
Calcium 10.0
Vital Signs:
Vital Signs
Temp Pulse Resp BP Pulse Ox
98.2 F 91 16 175/99 100
11/10/23 07:46 11/10/23 07:46 11/10/23 07:46 11/10/23 07:46 11/10/23 07:46
I&O
11/09/23 11/10/23 11/11/23
06:59 06:59 06:59
Intake Total 480 / 480 2160 / 2160
Balance 480 / 480 2160 / 2160
[2023-11-10 13:24] LABS: Glucose - Point of Care 147 mg/dl (70-99)
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
--- NOTE | 2023-11-10 14:04 | W.DS.TRANS ---
DC Summary - [employer]er
-
Discharge Instructions:
Discharge Diagnosis/Procedures Left sided Pain near scapula, improved with
nitro as per patient, suspected contribution
from hypertension
Unable to take Losartan (gets hypotensive), Beta
-Lara (low blood sugars), or Calcium Channel
Lara (Tacrolimus interaction)
Constipation
Coronary Artery Disease status post LAD stent
1994 and status post NSTEMI and overlapping mid
to distal 3mm and 3 mm Resolute RCA stents and
overlapping 2 and 2.5 mm Resolute stent to
Circumflex
Small fixed, basilar, inferolateral and basilar
inferior defects consistent with infarct and
prior RCA disease. No ischemia.
Statin intolerance, now on PCSK9 inhibitor
Fatigue / PERKINS, Reporting poor appetite
intermittent nausea suprapubic pain/tenderness
past few weeks
Status post cadaveric renal transplant at
[place] 2001, currently managed at [facility]
Abnormal CT Abd/Pelvis with multiple pulmonary
nodules, multiple hepatic lesions and a 10 mm
enhancing right renal mass suspicious for RCC -
lung nodules are small, with a 2.5 mm nodule in
the LLL +3 mm GGO in posterior RLL
Small Right Renal Mass -- possibly malignant
Possible liver metastases
Breast cancer left-sided lumpectomy radiation
about 4 years ago possibly treated with
Herceptin (obtain records from Pallavi Billingsley
cardio field service coordinator at [place])
Diabetes Mellitus - Type I
Hypoglycemia
Hypertensive Urgency
Hypothyroidism
History of Sarcoidosis?
Acute Anxiety
Diet Low Sodium,Low Cholesterol,Low Fat
Activity As tolerated
Instructions: Alprazolam
Stand-Alone Forms:
Changes to Home Medications: Yes
Discharge Medications:
DC Medications w/original date entered in [employer]
aspirin 81 mg chewable tablet 81 mg PO DAILY Blood clot prevention/tx 02/12/22
ergocalciferol (vitamin D2) 1,250 mcg (50,000 unit) capsule 1,250 mcg PO MO Supplement 02/12/22
folic acid 1 mg tablet 1 mg PO DAILY Supplement 02/12/22
furosemide 40 mg tablet 40 mg PO DAILY Fluid retention/Swelling 02/12/22
magnesium oxide 400 mg (241.3 mg magnesium) tablet 400 mg PO DAILY Supplement 02/12/22
prednisone 5 mg tablet 5 mg PO DAILY Transplant 02/12/22
tacrolimus 1 mg capsule, immediate-release 2 mg PO QPM@2000 Transplant 02/12/22
tacrolimus 1 mg capsule, immediate-release 3 mg PO DAILY@0800 Transplant 02/12/22
gabapentin 100 mg capsule 100 mg PO HS Pain 11/06/23
levothyroxine 100 mcg tablet 100 mcg PO DAILY Thyroid 11/06/23
Pt's Own Ins. Pump U-500 [PT'S OWN INSULIN PUMP - U-500 HumuLIN R] See Rx Instructions .Route .COMPLEX #1 unit 11/10/23
alprazolam 0.25 mg tablet 0.25 mg PO [id number] PRN anxiety #10 tabs 11/10/23
hydralazine 10 mg tablet 10 mg PO BID #60 tabs 11/10/23
polyethylene glycol 3350 17 gram oral powder packet (HealthyLax) 17 g PO DAILY #30 ea 11/10/23
sennosides 8.6 mg-docusate sodium 50 mg tablet (Stool Softener-Stimulant Laxative) 1 tab PO BID #60 tabs 11/10/23
Home Medication Changes
Alprazolam, Hydralazine, Polyethylene Glycol and Sennoside-Docusate are new medications.
Pending Results: No
Total time spent discharging patient (in min): 42
--- NOTE | 2023-11-10 14:31 | CM ---
Met with patient at bedside
[facility] IMM benefit explained; form signed @[id number]
Plan: Discharge to home; will transport home; no needs
[2023-11-10 15:14] VITALS: BP 140/74
--- NOTE | 2023-11-12 18:15 | W.DCSUMMARY ---
Discharge Summary
Discharge Data
Date of Admission: 11/06/23
Date of Discharge: 11/10/23
Total time spent discharging patient (in min): 42
-
Pending Results: No
Hospital Course
63 y/o female with past medical history significant for renal disease status post transplant, coronary artery disease and hypertension who presented reporting fatigue, shortness of breath and new flank pain. Troponins were negative. Cardiology was
consulted and they recommended stress test and echocardiogram. Hydralazine was started for elevated blood pressure (it was noted that patient was recently hypotensive as an outpatient on losartan and had to be de-escalated, that she could not take
beta-lara because of issues with low sugars and not feeling them with beta-blockers previously and that she could not take calcium channel blockers given can potentiate tacrolimus. As per cardiology note, echocardiogram on 11/08/23 showed
preserved ejection fraction 61% with mild to moderate AI, and Lexiscan stress test on 11/08/23 showed small fixed, basilar, inferolateral and basilar inferior defects consistent with infarct and prior RCA disease, no ischemia and ejection fraction
51%. Based on patient's imaging, CT abd/pelvis returning concerning for malignancy, right renal carcinoma, possible liver mets, and pulm nodules, oncology and pulmonary were consulted as per patient's request. Pulmonary recommended a CT Chest which
was done. Urology was consulted and noted patient's small right renal mass -- possibly malignant but based upon size, there was no urgency to definitively establish diagnosis or treat -- and she could follow-up with Oncology team at [facility]. Psychiatry
was consulted for anxiety and depression and recommended as needed Xanax for acute anxiety. Because of hypoglycemia, Diabetes Nurse Practitioner advised patient on new pump setting and close follow-up with her instrumentation and controls technician after discharge.
Pulmonary recommended as needed albuterol on discharge.
Discharge Plan
-
Patient Disposition: Home (Routine Discharge)
Discharge Diagnosis/Procedures: Left sided Pain near scapula, improved with nitro as per patient, suspected contribution from hypertension
Unable to take Losartan (gets hypotensive), Beta-Lara (low blood sugars), or Calcium Channel Lara (Tacrolimus interaction)
Constipation
Coronary Artery Disease status post LAD stent 1994 and status post NSTEMI and overlapping mid to distal 3mm and 3 mm Resolute RCA stents and overlapping 2 and 2.5 mm Resolute stent to Circumflex
Small fixed, basilar, inferolateral and basilar inferior defects consistent with infarct and prior RCA disease. No ischemia.
Statin intolerance, now on PCSK9 inhibitor
Fatigue / PERKINS, Reporting poor appetite intermittent nausea suprapubic pain/tenderness past few weeks
Status post cadaveric renal transplant at [place] 2001, currently managed at [facility]
Abnormal CT Abd/Pelvis with multiple pulmonary nodules, multiple hepatic lesions and a 10 mm enhancing right renal mass suspicious for RCC -lung nodules are small, with a 2.5 mm nodule in the LLL +3 mm GGO in posterior RLL
Small Right Renal Mass -- possibly malignant
Possible liver metastases
Breast cancer left-sided lumpectomy radiation about 4 years ago possibly treated with Herceptin (obtain records from Pallavi Billingsley cardio event promotions coordinator at [facility])
Diabetes Mellitus - Type I
Hypoglycemia
Hypertensive Urgency
Hypothyroidism
History of Sarcoidosis?
Acute Anxiety
Condition: Fair
Diet: Low Fat, Low Cholesterol and Low Sodium
Activity: As tolerated
Activity Restrictions/Additional Instructions:
Follow-up with [facility] and give them all of your records from this hospitalization, including the results of all imaging that were done.
Please call Dr. Alexander 's (marketing automation specialist's) office to schedule your appointment in the next few days.
You have been given a 5-day supply of as needed (for anxiety) Xanax. Please ask your primary care provider for further refills.
You need to closely monitor your constipation and keep in touch with your primary care provider's office by tomorrow regarding constipation.
For Diabetes Mellitus, maintain settings as advised by hospital Diabetes Nurse Practitioner.
Contact (by tomorrow) your instrumentation and controls technician's (Dr. Le's) office about your Insulin pump changes made during this hospitalization due to your hypoglycemia.
Instructions: Alprazolam
Referrals:
Evangelista Mccarty MD [Active] - in three to four weeks
(Hospital follow-up of lung nodules
Obtain full PFTs on day of office visit given concern for asthma)
Randy Ferreira MD [Active] - in two to four weeks (Follow-up of renal mass)
Narayan Alexander MD [Active] - 11/10/23 1:20 pm (You have cardiology follow up with Dr. Alexander on November 09 at 1:20 pm at the [facility] in [place], [place]. If you are unable to make this appointment please call [phone] to
reschedule. )
Pieter Lynn MD [Family Provider] - in less than 1 week
Cordell Le MD [Consulting Staff] - in less than 1 week (Hospital Follow-up - Diabetes Mellitus and Insulin Pump)
Additional Discharge Medication Instructions: Alprazolam, Hydralazine, Polyethylene Glycol and Sennoside-Docusate are new medications.
Prescriptions:
New
hydralazine 10 mg Tablet
10 mg PO BID Qty: 60 1RF
polyethylene glycol 3350 [HealthyLax] 17 gram Powder In Packet
17 g PO DAILY Qty: 30 1RF
Pt's Own Ins. Pump U-500 [Pt's Own Insulin Pump - U-500 Humulin R]
See Rx Instructions .ROUTE .COMPLEX Qty: 1 0RF
Rx Instructions:
Follow instructions from diabetes nurse practitioner
sennosides-docusate sodium [Stool Softener-Stimulant Laxat] 8.6-50 mg Tablet
1 tab PO BID Qty: 60 0RF
alprazolam 0.25 mg Tablet
0.25 mg PO [id number] PRN (Reason: anxiety) Qty: 10 0RF
albuterol sulfate 90 mcg/actuation HFA aerosol inhaler
2 puff inhalation Q4H PRN (Reason: shortness of breath or wheezing) Qty: 8.5 1RF
Continued
furosemide 40 mg tablet
40 mg PO DAILY
prednisone 5 mg tablet
5 mg PO DAILY
magnesium oxide 400 mg (241.3 mg magnesium) tablet
400 mg PO DAILY
aspirin 81 mg Tablet,Chewable
81 mg PO DAILY
folic acid 1 mg tablet
1 mg PO DAILY
ergocalciferol (vitamin D2) 1,250 mcg (50,000 unit) capsule
1,250 mcg PO MO
tacrolimus 1 mg capsule
3 mg PO DAILY@0800
tacrolimus 1 mg capsule
2 mg PO QPM@2000
levothyroxine 100 mcg Tablet
100 mcg PO DAILY
gabapentin 100 mg Capsule
100 mg PO HS
Rx Instructions:
Takes 100-300mg at HS 'as needed'.
Discharge Orders:
Discharge Patient (As Directed); Ordered 11/10/23
Ordered By: Mingo Carreon
Discharge Date and Time
Discharge Date/Time: 11/10/23 15:25
Print Language: [id number]
== END 2023-11-10 15:25 | disposition home or self-care (01) | DRG 305 ==
LOC: 3 WEST ACU 07:41
PROVIDERS: Emergency Medicine; Internal Medicine; ADMITTING PHYSICIAN Hospitalist; ATTENDING PHYSICIAN Hospitalist; CONSULT PHYSICIAN Internal Medicine Cardiovascular Disease; CONSULT PHYSICIAN Internal Medicine Critical Care Medicine; CONSULT PHYSICIAN Psychiatry & Neurology Psychiatry; CONSULT PHYSICIAN Specialist; EMERGENCY PHYSICIAN Emergency Medicine; FAMILY PHYSICIAN Internal Medicine; OTHER PHYSICIAN Internal Medicine Hematology & Oncology
DX: I16.0 Hypertensive urgency (principal); Z94.0 Kidney transplant status; E10.649 Type 1 diabetes mellitus with hypoglycemia without coma; E03.9 Hypothyroidism, unspecified; K76.9 Liver disease, unspecified; I10 Essential (primary) hypertension; I25.10 Atherosclerotic heart disease of native coronary artery without angina pectoris; F41.9 Anxiety disorder, unspecified; N28.89 Other specified disorders of kidney and ureter; R91.8 Other nonspecific abnormal finding of lung field; Z79.82 Long term (current) use of aspirin; Z79.52 Long term (current) use of systemic steroids; Z79.621 Long term (current) use of calcineurin inhibitor; Z79.890 Hormone replacement therapy; Z79.899 Other long term (current) drug therapy; Z95.5 Presence of coronary angioplasty implant and graft; I25.2 Old myocardial infarction; Z85.3 Personal history of malignant neoplasm of breast; Z88.0 Allergy status to penicillin; Z88.2 Allergy status to sulfonamides; Z88.8 Allergy status to other drugs, medicaments and biological substances; Z90.49 Acquired absence of other specified parts of digestive tract
CPT/HCPCS: 71046; 71250; 72072; 74177; 78452; 80048; 80053; 80061; 80197; 81003; 82728; 82962; 83036; 83540; 83550; 83690; 83735; 83880; 84100; 84484; 85025; 85027; 85379; 93005; 93017; 93306; 97162; 97165; 99285; A9500; J2785; Q9967

== ENCOUNTER 2024-03-06 09:43 | Inpatient (IN) | payer MEDICARE, OTHER, SELFPAY ==
[2024-03-03 13:24] VITALS: BP 136/84
--- NOTE | 2024-03-03 13:26 | ED.GENMED ---
ED Provider Triage
<Modesto Mulligan PA-C - Last Filed: 03/03/24 13:27>
-
Patient seen by provider in Triage?: Seen in Triage
Attestation: A medical screening examination has been initiated by a qualified medical provider. Based on the assessment performed at this time, it has been determined that an emergent medical condition may exist and the patient has been informed
that further medical evaluation and possible additional diagnostic testing may be needed.
HPI: 63-year-old female with past history of kidney transplant sent to the emergency department from her primary care's office for evaluation of a headache that has been ongoing for 2 days. Patient with sinus congestion and URI-like symptoms during
these 2 days. Primary care requesting CT of the head. Given patient's history will obtain blood work as well. Patient afebrile. Notes that she was also told she has a rash to the back of the right ear. Recently hospitalized at [facility] with a ear
infection and colitis. CT of the head and blood work ordered.
GENERAL: Alert , appears uncomfortable
EYE: No visual abnormalities.
NECK: Trachea midline
ENT: No visible abnormalities.
LUNGS: No acute respiratory distress
NEUROLOGICAL: Alert and oriented
SKIN: Skin intact. No visible changes.
MUSCULOSKELETAL: Moving extremities normally
PSYCH: Normal and appropriate interaction.
This is a medical evaluation conducted in person to initiate diagnostic evaluation and provide initial therapeutics. Please see further documentation by the treating clinician.
History of Present Illness
<Modesto Mulligan PA-C - Last Filed: 03/03/24 13:27>
General
Chief Complaint: Headache
Time Seen by Provider: 03/03/24 15:44
<Zaida Hernandez MD - Last Filed: 03/03/24 18:25>
History of Present Illness
History of Present Illness:
Patient is a 63-year-old woman with history of kidney transplant on immunosuppressant therapy, CAD, hypertension, hyperlipidemia presenting to the emergency department with headache. Patient states that 2 days ago she started develop sinus
congestion and a headache. She was started on a Z-Nazario. She states that her symptoms have not improved. She still has a headache that has been constant. It is behind her eye and her ear. She is also been having some nausea. She did have history
of a ear infection to the right ear and was hospitalized at [facility] at the end of December. She did state that she required multiple IV antibiotics and almost needed surgery for it. She states that today she went to her primary care doctor as he sinus
symptoms were not getting any better. She went there and they noticed a rash to her ear. PCP was concerned about shingles and was worried about spread to the cranium causing the headache so he sent her here for CT scan. Patient does state that
her eye does seem more swollen. She did not notice a rash to the eye earlier this morning just to the ear.
Past History
<Modesto Mulligan PA-C - Last Filed: 03/03/24 13:27>
Past History
ED Past Medical History: HTN, Hypercholesterolemia, IDDM, AL and Other (Kidney transplant)
ED Past Surgical History: Other (Kidney transplant)
Social History
Tobacco: Non-smoker
Phy Exam
<Zaida Hernandez MD - Last Filed: 03/03/24 18:25>
Physical Exam
Physical Exam:
GENERAL: in no acute distress
HEENT: normocephalic, extraocular movements intact though difficulty with movement medially and superiorly of the right eye, moist oral mucosa
NECK: normal inspection
RESPIRATORY: no respiratory distress, clear to auscultation bilaterally
CARDIOVASCULAR: regular rate and rhythm
ABDOMEN/: soft, non-distended, non-tender to palpation, no rebound or guarding
EXTREMITIES: non-tender, no edema/swelling
NEUROLOGIC: awake and alert, moves all extremities, equal strength in upper and lower extremities, sensation intact
SKIN: warm, erythematous macular rash to the right side of the forehead and around the right eye with some periorbital edema, erythematous macular rash to the right ear most visible at pinna, no inner ear abnormalities, no mucosal involvement
Course
<Modesto Mulligan PA-C - Last Filed: 03/03/24 13:27>
Orders/Labs/Results
Orders:
Orders
03/03/24 13:25
CT Head W/o Iv Contrast Urgent
Comment:
Reason For Exam: headache, sent by PCP
03/03/24 13:37
Basic Metabolic Panel Urgent
COVID-19 Antigen Urgent
Source: Nasal Swab
Complete Blood Count/With Diff Urgent
03/03/24 16:04
CT Orbits With Iv Contrast Urgent
Comment:
Reason For Exam: right eye swelling, rash, difficutly with EOM
Acetaminophen [Tylenol] 1,000 mg PO NOW STA
Metoclopramide [Reglan] 10 mg IV NOW STA
Abnormal Lab Results
03/03/24
13:37
RDW 15.9 H %
(11.5-14.5)
Eosinophils % 6.1 H %
(0-6)
BUN 20 H mg/dl
(7-17)
Glucose 118 H mg/dl
(70-99)
03/03/24 13:37
03/03/24 13:37
Vital Signs
Initial and Last Documented VS:
Initial Vital Signs
Temp Pulse Resp BP Pulse Ox
97.7 F 70 16 136/84 100
03/03/24 13:24 03/03/24 13:24 03/03/24 13:24 03/03/24 13:24 03/03/24 13:24
Last Documented Vital Signs
Temp Pulse Resp BP Pulse Ox
97.7 F 69 16 179/84 98
03/03/24 13:24 03/03/24 17:19 03/03/24 17:19 03/03/24 17:19 03/03/24 17:19
<Zaida Hernandez MD - Last Filed: 03/03/24 18:25>
Orders/Labs/Results
Orders:
Orders
03/03/24 13:25
CT Head W/o Iv Contrast Urgent
Comment:
Reason For Exam: headache, sent by PCP
03/03/24 13:37
Basic Metabolic Panel Urgent
COVID-19 Antigen Urgent
Source: Nasal Swab
Complete Blood Count/With Diff Urgent
03/03/24 16:04
CT Orbits With Iv Contrast Urgent
Comment:
Reason For Exam: right eye swelling, rash, difficutly with EOM
Acetaminophen [Tylenol] 1,000 mg PO NOW STA
Metoclopramide [Reglan] 10 mg IV NOW STA
Abnormal Lab Results
03/03/24
13:37
RDW 15.9 H %
(11.5-14.5)
Eosinophils % 6.1 H %
(0-6)
BUN 20 H mg/dl
(7-17)
Glucose 118 H mg/dl
(70-99)
03/03/24 13:37
03/03/24 13:37
Vital Signs
Initial and Last Documented VS:
Initial Vital Signs
Temp Pulse Resp BP Pulse Ox
97.7 F 70 16 136/84 100
03/03/24 13:24 03/03/24 13:24 03/03/24 13:24 03/03/24 13:24 03/03/24 13:24
Last Documented Vital Signs
Temp Pulse Resp BP Pulse Ox
97.7 F 69 16 179/84 98
03/03/24 13:24 03/03/24 17:19 03/03/24 17:19 03/03/24 17:19 03/03/24 17:19
<Zaida Hernandez MD - Last Filed: 03/03/24 18:25>
MDM/Problems Addressed
Differential Diagnosis Includes:
Patient is a 63-year-old woman with history of kidney transplant on immunosuppressive therapy, hypertension, hyperlipidemia, CAD presenting to the emergency department with headache and sinus pain as well as a rash. Vitals here are notable for
being afebrile and exam does show an erythematous macular rash to the right side of the forehead, along the right eye and some aspects of the right ear. There are no mucosal involvement. No rash notable elsewhere at this time. Patient does state
that this rash is pretty was when she came in a few hours ago the rash was just to the ear. She is not on any new medications. With the difficulty with extraocular movement I am concerned about possible orbital cellulitis though there is no
significant proptosis or chemosis. It is reassuring that she does not have double vision and does have full range of motion of extraocular movements though there is some pain with it. Could also be early shingles. She is not on any new
medications to suggest a drug rash. History and exam not consistent with SJS. History and exam not consistent with meningitis or subarachnoid hemorrhage. Less likely to be cerebral venous thrombosis. Blood work obtained prior to elevation is
unremarkable. Dry head CT is negative. Will obtain CT scan of the orbits with IV contrast for further evaluation. Will give pain control for the headache. Patient will need admission for further treatment.
<Zaida Hernandez MD - Last Filed: 03/03/24 18:25>
*Critical Care Note
Total Time (30-74mins, 75-104mins- exclusive of procedures): Not Applicable
<Zaida Hernandez MD - Last Filed: 03/03/24 18:25>
Update Note
Update Note:
On reevaluation the headache is slightly better. Patient's rash to the eye is interesting as it does slightly improved but then worsens again intermittently. Given that initial concern was for shingles and does appear that this could be early
shingles given the clear demarcation we will give IV Valtrex given her immunosuppression. After shared decision making we will admit for further monitoring of this rash.
ED Attending Note
<Modesto Mulligan PA-C - Last Filed: 03/03/24 13:27>
-
Portions of this chart may have been created with voice recognition software.� Occasional wrong word or��sound alike� substitutions may have occurred due to the inherent limitations of voice recognition software.
Discharge Plan
Departure
Prescriptions:
No Action
furosemide 40 mg tablet
40 mg PO DAILY
prednisone 5 mg tablet
5 mg PO DAILY
magnesium oxide 400 mg (241.3 mg magnesium) tablet
400 mg PO DAILY
aspirin 81 mg Tablet,Chewable
81 mg PO DAILY
folic acid 1 mg tablet
1 mg PO DAILY
ergocalciferol (vitamin D2) 1,250 mcg (50,000 unit) capsule
1,250 mcg PO MO
tacrolimus 1 mg capsule
3 mg PO DAILY@0800
tacrolimus 1 mg capsule
2 mg PO QPM@2000
levothyroxine 100 mcg Tablet
100 mcg PO DAILY
gabapentin 100 mg Capsule
100 mg PO HS
Rx Instructions:
Takes 100-300mg at HS 'as needed'.
hydralazine 10 mg Tablet
10 mg PO BID Qty: 60 1RF
polyethylene glycol 3350 [HealthyLax] 17 gram Powder In Packet
17 g PO DAILY Qty: 30 1RF
Pt's Own Ins. Pump U-500 [Pt's Own Insulin Pump - U-500 Humulin R]
See Rx Instructions .ROUTE .COMPLEX Qty: 1 0RF
Rx Instructions:
Follow instructions from diabetes nurse practitioner
sennosides-docusate sodium [Stool Softener-Stimulant Laxat] 8.6-50 mg Tablet
1 tab PO BID Qty: 60 0RF
alprazolam 0.25 mg Tablet
0.25 mg PO Q30VCEM PRN (Reason: anxiety) Qty: 10 0RF
albuterol sulfate 90 mcg/actuation HFA aerosol inhaler
2 puff inhalation Q4H PRN (Reason: shortness of breath or wheezing) Qty: 8.5 1RF
Referrals:
Pieter Lynn MD [Family Provider] -
Interventions
Interventions:
*Risk Screen - Suicide Last Done: 03/03/24 13:24
*General Assessment Last Done: 03/03/24 17:12
*Neglect/Abuse Screening Last Done: 03/03/24 13:24
ED- Fall Risk Assessment Last Done: 03/03/24 17:15
*ED COVID-19 Vaccine History Last Done: 03/03/24 17:12
ED- Neurological Assessment Last Done: 03/03/24 17:17
Discharge Date and Time
Print Language: UZBEK
[2024-03-03 13:46] LABS: % Eosinophils 6.1 % (0-6); % Immature Granulocytes 0.2 % (0-0.5); % Lymphocytes 24.6 % (20.5-51.1); % Monocytes 8.1 % (1.7-9.3); Absolute Basophils 0.1 10^3/uL (0-0.2); Absolute Eosinophils 0.4 10^3/uL (0-0.7); Absolute Lymphocytes 1.5 10^3/uL (1.2-3.4); Absolute Monocytes 0.5 10^3/uL (0.1-0.6); Absolute Neutrophils 3.6 10^3/uL (1.4-6.5); Hematocrit 37.6 % (37.0-47.0); Hemoglobin 12.4 g/dL (12.0-16.0); Mean Corpuscular Hgb 28.3 pg (27.0-31.0); Mean Corpuscular Volume 85.8 fL (81.0-99.0); Mean Platelet Volume 9.2 fL (7.4-10.4); Nucleated Red Blood Cells % 0 %; Platelet Count 265 10^3/uL (130-400); Red Blood Cell Count 4.38 10^6/uL (4.20-5.40); Red Cell Dist. Width 15.9 % (11.5-14.5); White Blood Cell Count 5.9 10^3/uL (4.8-10.8)
[2024-03-03 14:04] LABS: Blood Urea Nitrogen 20 mg/dl (7-17); Carbon Dioxide 30 mmol/L (22-30); Chloride 99 mmol/L (98-107); Glucose 118 mg/dl (70-99); Potassium 4.3 mmol/L (3.5-5.1); Sodium 138 mmol/L (135-145); eGFR > 60.00
[2024-03-03 14:06] LABS: COVID-19 Antigen Negative (Negative)
[2024-03-03] MEDS: TYLENOL 1000 MG PO (16:26)
[2024-03-03] MEDS: REGLAN 10 MG IV ×2 (16:26→22:07)
[2024-03-03 16:33] VITALS: BP 181/85
--- NOTE | 2024-03-03 17:10 | EDRN ---
Pt states she arrives to ER for possible shingles (just started), sent by PCP today.
[2024-03-03 17:11] VITALS: BMI 25.3
[2024-03-03 17:19] VITALS: BP 179/84
--- NOTE | 2024-03-03 17:25 | EDRN ---
Pt states pain is in R side of head (redness noted on forehead w/ sl swelling around R eye and radiating around R side of head to neck and under R ear. Pt describes pain as pressure like a sinus headache.
[2024-03-03 18:07] VITALS: BP 178/76
--- NOTE | 2024-03-03 18:48 | HPS.HSE ---
Family Physician
-
Family Physician: Pieter Lynn
Chief Complaint
-
Right sided facial rash
History of Present Illness
This is a 63-year-old with history of disease donor kidney transplant 20 years ago, CKD stage III, CAD status post multiple PCI, hypertension, hyperlipidemia, insulin-dependent diabetes who presents to the emergency department after visiting PMD for
persistent headache and a right-sided facial rash.
Patient's medical history includes a recent admission for suppurative and possibly necrotizing otitis media status post IV antibiotics for several days HUP. She also has colitis at that time status post treatment. More recently the patient has had
upper respiratory symptoms including headache, sinus congestion, postnasal drip, nonproductive cough. She has taken 3 days of azithromycin. She followed up with her PMD today who noticed rash developed behind the ear and across the right side of
the forehead. When I saw the patient she reports a history of migraines but she has not needed take medications for many years
This is different from her typical migraine as it is right-sided and behind her ear on the right eye. Patient denies any vision changes. She denies any foreign body sensation. She denies double vision. She has had no fevers or chills.
In the emergency department she was afebrile, hemodynamically stable with a blood pressure of 180/84, pulse 69 respiratory rate 16. CBC was unremarkable. Electrolytes BUN/creatinine were also within normal limits. She had a CT of the head which
shows no acute intracranial process. She had CT of the orbits that was read as 'No acute fracture involving the orbits or visualized skull base. Globes are spherical without proptosis. Lenses are in appropriate position. There is no retro-orbital
hematoma. Intraocular muscles and lacrimal glands intact and symmetric bilaterally. No evidence for preseptal or postseptal cellulitis.'
Medical History
Past Medical History
Past Medical History: Reports CAD, CHF, HTN, IDDM and Other (This is due to kidney transplant)
Past Surgical History: Reports Other
Additional Past Surgical History:
Left lumpectomy
Social History
Tobacco: Non-smoker
Alcohol: None
Drug: None
Personal:
Living: With Family
Employment: Not Employed
Family History
Family History: Not pertinent
Allergies / Home Medications
Allergies reflects when Allergies were last updated in [employer].
Home Medications with original date entered in [employer]
Allergy/Medication List:
Allergies
Allergy/AdvReac Type Severity Reaction Status Date / Time
ciprofloxacin [From Cipro] Allergy Severe Anaphylaxis Verified 03/03/24 13:28
Penicillins Allergy Shortness Verified 03/03/24 13:28
of Breath
prochlorperazine Allergy Anxiety Verified 03/03/24 13:28
[From Compazine]
Sulfa (Sulfonamide Allergy Rash Verified 03/03/24 13:28
Antibiotics)
Home Medications
aspirin 81 mg chewable tablet 81 mg PO DAILY Blood clot prevention/tx 02/12/22
ergocalciferol (vitamin D2) 1,250 mcg (50,000 unit) capsule 1,250 mcg PO MO Supplement 02/12/22
folic acid 1 mg tablet 1 mg PO DAILY Supplement 02/12/22
furosemide 40 mg tablet 40 mg PO DAILY Fluid retention/Swelling 02/12/22
magnesium oxide 400 mg (241.3 mg magnesium) tablet 400 mg PO DAILY Supplement 02/12/22
prednisone 5 mg tablet 5 mg PO DAILY Transplant 02/12/22
tacrolimus 1 mg capsule, immediate-release 2 mg PO QPM@2000 Transplant 02/12/22
tacrolimus 1 mg capsule, immediate-release 3 mg PO DAILY@0800 Transplant 02/12/22
gabapentin 100 mg capsule 100 mg PO HS Pain 11/06/23
levothyroxine 100 mcg tablet 100 mcg PO DAILY Thyroid 11/06/23
Pt's Own Ins. Pump U-500 [PT'S OWN INSULIN PUMP - U-500 HumuLIN R] See Rx Instructions .Route .COMPLEX #1 unit 11/10/23
albuterol sulfate 90 mcg/actuation aerosol inhaler 2 puff inhalation Q4H PRN shortness of breath or wheezing #8.5 grams 11/10/23
hydralazine 10 mg tablet 10 mg PO BID #60 tabs 11/10/23
polyethylene glycol 3350 17 gram oral powder packet (HealthyLax) 17 g PO DAILY #30 ea 11/10/23
sennosides 8.6 mg-docusate sodium 50 mg tablet (Stool Softener-Stimulant Laxative) 1 tab PO BID #60 tabs 11/10/23
Review of Systems
-
History Source: Patient
Constitutional: Reports No Symptoms
EENT: Reports No Symptoms
Respiratory: Reports No Symptoms
Cardiac: Reports No Symptoms
Abdomen/GI: Reports No Symptoms
: Reports No Symptoms
Musculoskeletal: Reports No Symptoms
Skin: Reports Rash
Neurological: Reports Headache
Endocrine: Reports No Symptoms
Hematologic/Lymphatic: Reports No Symptoms
Psych: Reports No Symptoms
Physical Exam
Vital Signs
Vital Signs
Temp Pulse Resp BP Pulse Ox
97.7 F 69 16 179/84 98
03/03/24 13:24 03/03/24 17:19 03/03/24 17:19 03/03/24 17:19 03/03/24 17:19
Physical Exam
General: Well Developed, Well Nourished, No Apparent Distress and Comfortable
HEENT: NormoCephalic, Anicteric, Moist mucous membranes, Atraumatic, PERRLA, [place] Conjunctivae, Ears Appear Normal and Neck Nontender
Respiratory: Clear
Cardiac: S1/S2 and Regular Rhythm
Breast: Deferred by me
GI: Soft, Non Tender, Non Distended and Normal Bowel Sounds
Rectal: Deferred by Provider
Genito-urinary: Deferred by me
Musculoskeletal: No Clubbing, No Cyanosis and No Edema
Skin: Warm
Neuro: AO x 3
Hematologic/Lymphatic: No Lymphadenopathy
Psych: Calm
Laboratory Results
-
03/03/24 13:37
03/03/24 13:37
Data Reviewed
-
CT Scan: Report Reviewed by me
Lab Data: Labs Reviewed by me
Old Records: Reviewed
Impression/Plan
-
IMPRESSION:
63-year-old female with history of disease donor kidney transplant 20 years ago on tacrolimus and prednisone, CAD, insulin-dependent diabetes presenting to the emergency department with persistent right-sided headache and a right-sided facial rash.
PLAN:
Rash and Headache -patient with a erythematous macular rash that appears to be distributed in the V1 branch of the right side trigeminal nerve. Appears early and no vesicles at this time. However the rash does ends abruptly at the midline with
mild periorbital erythema. No vision changes. Denies foreign body sensation. No fevers or chills. Given the distribution of the rash, immunocompromise status and early findings, she has prodromal head pain that could be consistent with a
noncomplicated zoster. She is at high risk for dissemination
- admit to obs med/surg
- start Valacyclovir 1g q 8 hr, 7 to 14 days
- pain control
Kidney Tx - DDKTx 20 years ago. Stable renal function
- continue Tac 3 am 2 hs
- prednisone 5
IDDM
- patient own pump
- fingerstick glucose achs
HTN
- losartan 50 daily
- Metoprolol 25 daily
- hydralazine 10 bid
- lasix 40 daily
Will continue levothyroxine 100 mcg
DVT PPX - lovenox sq
Code Status - Full Code
[2024-03-03] MEDS: VALTREX 1000 MG PO (20:26)
--- NOTE | 2024-03-03 21:00 | PTCARENOTE ---
Received patient from ED. Patient AAOx3, she ambulated to the bedside with min assistance. Skin intact other than a rash on her forehead that extends to her right eye. Right eye has +1 edema. VSS. Assessment completed. Oriented to the unit. Patient
verbalized an understanding to use call yeboah as needed for assistance out of bed. Call yeboah in reach.
[2024-03-03] MEDS: APRESOLINE PO (21:05)
[2024-03-03] MEDS: SENOKOT-S PO (21:06)
[2024-03-03] MEDS: TYLENOL 650 MG PO (21:13)
[2024-03-03] MEDS: NEURONTIN 100 MG PO (21:13)
[2024-03-03] MEDS: PROGRAF 2 MG PO (21:13)
[2024-03-03 21:17] VITALS: BP 149/72
[2024-03-03 21:30] VITALS: BMI 22.0
[2024-03-03 21:42] LABS: Glucose - Point of Care 112 mg/dl (70-99)
[2024-03-03] MEDS: PATIENT'S OWN INSULIN PUMP SC (21:43)
[2024-03-03] MEDS: AMBIEN 5 MG PO (21:48)
[2024-03-03] MEDS: FLUSH (NSS) 2 FLUSH IV (22:10)
[2024-03-03 23:15] VITALS: BP 121/74
[2024-03-04] MEDS: TYLENOL 650 MG PO ×2 (04:10→13:53)
[2024-03-04] MEDS: SYNTHROID 100 MCG PO (05:55)
--- NOTE | 2024-03-04 06:03 | PTCARENOTE ---
Patients eye is swelling to +2 edema. It was +1 edema at start of shift. She is having a 'panic attack' and wants something for anxiety. Cold compress suggested and order for Xanax provided.
[2024-03-04] MEDS: XANAX 0.25 MG PO ×2 (06:07→21:38)
--- NOTE | 2024-03-04 07:33 | W.PN.HOSP.TC ---
Today's Communication/Plan
-
Continue IV Acyclovir and IV fluids
Monitor patient's vision and cranial nerves very closely for any changes
Assessment / Plan
Assessment / Plan
Physical Exam
General: Mild distress due to pain
HEENT: Normocephalic
Respiratory: Clear
Cardiac: S1/S2 and Regular Rhythm
GI: Soft, Non Tender, Non Distended and Normal Bowel Sounds
Musculoskeletal: No Cyanosis and No Edema
Skin: Warm. Rash - erythematous papular round lesions on right side of the forehead to adventism, scalp, upper eyelid and outer right ear
Neuro: AAO x 3. Visual acuity testing intact on the right eye. EOMI with some discomfort behind right eye.
Psych: Anxious
Assessment/Plan
IMPRESSION:
63-year-old female with history of disease donor kidney transplant 20 years ago on tacrolimus and prednisone, CAD, insulin-dependent diabetes presenting to the emergency department with persistent right-sided headache and a right-sided facial rash.
PLAN:
# Right side V1 distribution Zoster with involvement adjacent V2, V3, possible C2
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
# Multiple abx allergies: PCN, cefuroxime, sulfa, cipro
# Light Sensitivity in the Right Eye as well as right eye pain with movement
Rash and Headache -patient with a erythematous macular rash that appears to be distributed in the V1 branch of the right side trigeminal nerve. Appears early and no vesicles at this time. However the rash is mostly on the right, with some
extending to left with mild periorbital erythema. No vision changes and visual acuity is intact. Mild foreign body sensation on the medial aspect. No fevers or chills. Given the distribution of the rash, immunocompromise status and early
findings, she has prodromal head pain that could be consistent with a noncomplicated zoster. She is at high risk for dissemination
- Status post Valacyclovir 1g q 8 hr, 7 to 14 days
- Now IV acyclovir has neem started
- Maintain normal saline 75 cc/hr while on IV acyclovir to lower the risk of nephrotoxicity
- Appreciate nephrology
- Pain control with prn Tramadol as per patient preference
- Spoke with on-call ironworker foreman, and Dr. Itzel Mckinley recommended no more than 1 week with Trifluridine (1%) - 1 drop to right eye every 2 hours while awake, MRI Brain
and Orbits with contrast to check for any possible optic neuritis, recommended systemic antiviral medication
Kidney Tx - DDKTx 20 years ago at [facility]. Stable renal function
- continue Tac 3 am 2 hs
- prednisone 5
- Appreciate nephrology
- IV fluids since getting Acyclovir
IDDM
- patient own pump
- fingerstick glucose achs
HTN
- losartan 50 daily
- Metoprolol 25 daily
- hydralazine 10 bid
- lasix 40 daily
Will continue levothyroxine 100 mcg
DVT PPX - lovenox sq
Code Status - Full Code
I spoke extensively to patient's Gene today, and explored possible transfer to [facility], but [facility] physicians recommend that if patient is transferred to transfer to [facility] in [facility]
[place] where they said patient's current transplant team is. Patient's said Dr. Kendy Spivey about 1 month ago said they would like to see patient and monitor patient's kidney transplant at [place].
Total time spent on caring for patient today, including chart review, speaking with patient and her , seeing and examining the patient, speaking with physician at [facility], talking with ironworker foreman via [place]
Text, placing orders and documentation, was 90 minutes.
Anticipated Discharge: > 48 hours
Subjective/Interval History
-
Date of Service: March 04, 2024
Patient was seen and examined. She reported pain and discomfort on the right side of her face and head, and rash.
Objective Data
-
Vital Signs:
Vital Signs
Temp Pulse Resp BP Pulse Ox
98.1 F 74 20 121/74 95
03/03/24 23:15 03/03/24 23:15 03/03/24 23:15 03/03/24 23:15 03/03/24 23:15
I&O
03/03/24 03/04/24 03/05/24
06:59 06:59 06:59
Intake Total 480 / 480
Balance 480 / 480
[2024-03-04 08:32] VITALS: BP 147/93
[2024-03-04] MEDS: COZAAR 50 MG PO (09:22)
[2024-03-04] MEDS: PROGRAF 3 MG PO (09:22)
[2024-03-04] MEDS: VALTREX 1000 MG PO (09:22)
[2024-03-04] MEDS: APRESOLINE 10 MG PO (09:22)
[2024-03-04] MEDS: LOW STRENGTH ASPIRIN 81 MG PO (09:23)
[2024-03-04] MEDS: DELTASONE 5 MG PO (09:23)
[2024-03-04] MEDS: MAG-TAB SR 84 MG PO (09:23)
[2024-03-04] MEDS: LASIX 40 MG PO (09:23)
[2024-03-04] MEDS: PATIENT'S OWN INSULIN PUMP SC ×4 (09:24→21:43)
[2024-03-04] MEDS: SENOKOT-S PO ×2 (09:27→21:38)
[2024-03-04] MEDS: MIRALAX PO (09:28)
[2024-03-04] MEDS: ROXICODONE 5 MG PO (09:42)
--- NOTE | 2024-03-04 10:06 | CM ---
CM met with pt at bedside. Pt requests CM stand back so CM stood in doorway to complete assessment and DELUCA.
Confirmed PCP is Pieter Lynn and pharmacy is [facility] on [address] in [place]. Reports + prescription plan.
Pt resides with spouse in a 3 with 2 stephanie. Bedroom/bathroom on second floor.
Prior to admission pt ind with amb using no AD. Ind with adl's. + Site Damage Prevention Technician.
DELUCA completed.
Pt has HC history years ago and no SNF history.
No skilled dc needs anticipated. CM to follow and watch for needs.
--- NOTE | 2024-03-04 12:30 | CON.ID ---
Consultation
-
Date/Time Consultation Requested: March 04, 2024 0935
Date/Time Consultation Performed: March 04, 2024 1230
Requesting Provider: Dr. Mingo Carreon
Performing Provider: Dr. Rhonda Avendaño
Reason for Consultation: Right-sided facial rash
Chief Complaint / Past History
Chief Complaint
Persistent headache and right side rash on face
History of Present Illness
History obtained from the patient as well as from her at bedside. She is a 63-year-old female with diabetes mellitus, history of sarcoid, history of disease renal transplant 2002 currently on tacrolimus and prednisone who presented to the ""hospital yesterday due to rash on her face and persistent sinus/head pain. Per patient has been having issue with right ear pain in November. In December she was admitted to [facility] due to severe right ear pain. MRI of the brain
showed a soft tissue mass in the ear. She underwent extraction/debridement of the soft tissue. Multiple cultures were negative. Serum EBV, CMV, and BK virus PCR were negative. Pathology of the tissue showed dense fibrin, inflammatory cells, no
malignant cells. She received IV antibiotic then discharged on oral antibiotic. That she continue to have follow-up with ENT as an outpatient and again cultures were negative. The ear pain resolved. On January 25 she was admitted to [facility] for acute abdominal pain. CT of the abdomen pelvis without contrast showed air. Patient was transferred to [facility] for surgical evaluation. CT abdomen and pelvis with contrast showed colitis without air. MRI of the abdomen showed
significant fecal burden. She received bowel regimen with subsequent improvement of the abdominal pain. She was doing well until last week when she developed bilateral sinus headache right greater than left. 3 days ago she saw her PCP who placed
her on azithromycin for sinus infection. She continued to have significant headache and had follow-up again with her PCP yesterday who noted a rash on the right side of her forehead and behind the ear. She was sent to the hospital for CAT scan of
the head. She came to the ER last night. CT head and orbit normal. She was started on Valacyclovir 1g po tid for shingles. Pt reports burning itching rash. Never received Shingrix vaccine. No visual change. + significant retro-orbital pain right
>left. No ear pain. No fevers. She and requesting transfer to [facility].
Past History
Additional Past Medical History:
Diabetes mellitus type 1
donor kidney transplant 2001 on tacrolimus and prednisone
Sarcoidosis
CAD status post stents
Hypertension
Dyslipidemia
Hypothyroidism
Neuropathy
CVA
Nephrolithiasis
History of breast cancer status post left lumpectomy and radiation
Allergy History:
cefuroxime Allergy (Severe, Verified 03/03/24 23:10)
Anaphylaxis
ciprofloxacin [From Cipro] Allergy (Verified 03/03/24 20:55)
Anaphylaxis
Penicillins Allergy (Verified 03/03/24 13:28)
Shortness of Breath
prochlorperazine [From Compazine] Allergy (Verified 03/03/24 13:28)
Anxiety
Sulfa (Sulfonamide Antibiotics) Allergy (Verified 03/03/24 13:28)
Rash
Medications Reviewed: Yes
Current Antibiotics:
Valacyclovir 1 g Q8
Social History
Tobacco: Non-Smoker
Alcohol: None
Drug: None
Personal:
Living: With Family
Family History
Family History: Not Pertinent
Review of Systems
Review of Systems
General: Change in Appetite; Negative Fever or Chills
HEENT: Sinus Problems and Headache; Negative Stiff Neck or Pharyngitis
Cardiovascular: Negative Chest Pain or Dyspnea
Respiratory: Negative Dyspnea or Cough
Gasteroenterology: Negative Nausea, Vomiting or Diarrhea
Genital / Urological: Negative Dysuria or Flank Pain
Endocrine: Weakness
Neurological: Headache and Dizziness
All systems: All other systems were reviewed and were negative
Vital Signs
Temp Pulse Resp BP Pulse Ox
97.7 F 90 21 147/93 95
03/04/24 08:32 03/04/24 09:23 03/04/24 08:32 03/04/24 09:23 03/04/24 08:32
Physical Exam
Physical Exam
Constitutional: Acutely Ill
Eyes: No Conjunctival Hemorrhage and Sclera Anicteric
Oral: No Thrush and No Ulcers
Cardiovascular: Regular Rate and S1/S2
Pulmonary: Clear
Gastrointestinal: Soft, Non Tender, Non Distended and Normal Bowel Sounds
Genito-Urinary: Negative CVA Tenderness
Extremities: Negative Edema
Skin: Rash (Faint papular round lesions on right side forehead to hoahaoism, scalp, upper eyelid and outer right ear; no lesions in ear canal )
Neurological: AO x 3; Negative Meningeal Signs
Lab / Diagnostic Study Results
03/03/24 13:37
03/03/24 13:37
Abs Immat Gran (auto) 0.0 10^3/uL (0-0.05) 03/03/24 13:37
Absolute Neuts (auto) 3.6 10^3/uL (1.4-6.5) 03/03/24 13:37
Absolute Lymphs (auto) 1.5 10^3/uL (1.2-3.4) 03/03/24 13:37
Absolute Monos (auto) 0.5 10^3/uL (0.1-0.6) 03/03/24 13:37
Absolute Basos (auto) 0.1 10^3/uL (0-0.2) 03/03/24 13:37
Immature Gran % 0.2 % (0-0.5) 03/03/24 13:37
Neutrophils % 60.0 % (42.2-75.2) 03/03/24 13:37
Lymphocytes % 24.6 % (20.5-51.1) 03/03/24 13:37
Monocytes % 8.1 % (1.7-9.3) 03/03/24 13:37
Eosinophils % 6.1 % (0-6) H 03/03/24 13:37
Basophils % 1.0 % (0-2) 03/03/24 13:37
Microbiology Results
03/03/24 CT head/orbits: No acute fracture involving the orbits or visualized skull base. Globes are spherical without proptosis. Lenses are in appropriate position. There is no retro-orbital hematoma. Intraocular muscles and lacrimal glands intact
and symmetric bilaterally. No evidence for preseptal or postseptal cellulitis.
Assessment / Plan
# Right side V1 Zoster with involvement adjacent V2, V3, possible C2
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
# Multiple abx allergies: PCN, cefuroxime, sulfa, cipro
- Replace valacyclovir with IV acyclovir 600mg q8h.
- Monitor renal function closely while on acyclovir.
- Pt with right side eye pain, light sensitivity. Ophto recommends MRI orbit.
- Airborne isolation.
[2024-03-04 13:32] LABS: Glucose - Point of Care 223 mg/dl (70-99)
[2024-03-04] MEDS: REGLAN 10 MG IV (13:52)
[2024-03-04] MEDS: ZOVIRAX INJECTION 112 MG IV ×2 (13:53→21:43)
--- NOTE | 2024-03-04 14:38 | W.CON.NEPH ---
Consultation
-
Date/Time Consultation Requested: 03/04/24 1400
Date/Time Consultation Performed: 03/04/24 1430
Requesting Provider: Dr. Carreon
Performing Provider: Dr. Núñez
Reason for Consultation: Renal transplant
Medical History
-
Chief Complaint: Shingles
Past Medical History
donor renal transplant [facility] 2001
Hypertension
Diabetes mellitus type 1 on insulin pump
Sarcoidosis
hypothyroidism
Breast cancer left, status post lumpectomy and XRT
Stroke
Coronary artery disease with stenting
Carpal tunnel release
AV fistula ligation
Tonsillectomy
Cholecystectomy
Retinal surgery
Social History
Tobacco: Non-Smoker
Alcohol: None
Family History
Bone cancer, coronary disease, hypertension
Allergies / Home Medications
Allergy/AdvReac Type Severity Reaction Status Date / Time
cefuroxime Allergy Severe Anaphylaxis Verified 03/03/24 23:10
ciprofloxacin [From Cipro] Allergy Anaphylaxis Verified 03/03/24 20:55
Penicillins Allergy Shortness Verified 03/03/24 13:28
of Breath
prochlorperazine Allergy Anxiety Verified 03/03/24 13:28
[From Compazine]
Sulfa (Sulfonamide Allergy Rash Verified 03/03/24 13:28
Antibiotics)
�Medication �Instructions �Recorded �Confirmed �Type
aspirin 81 mg chewable tablet 81 mg PO DAILY Blood clot 02/12/22 11/06/23 History
prevention/tx
ergocalciferol (vitamin D2) 1,250 1,250 mcg PO MO Supplement 02/12/22 11/06/23 History
mcg (50,000 unit) capsule
folic acid 1 mg tablet 1 mg PO DAILY Supplement 02/12/22 11/06/23 History
furosemide 40 mg tablet 40 mg PO DAILY Fluid 02/12/22 11/06/23 History
retention/Swelling
magnesium oxide 400 mg (241.3 mg 400 mg PO DAILY Supplement 02/12/22 11/06/23 History
magnesium) tablet
prednisone 5 mg tablet 5 mg PO DAILY Transplant 02/12/22 11/06/23 History
tacrolimus 1 mg capsule, 2 mg PO QPM@2000 Transplant 02/12/22 11/06/23 History
immediate-release
tacrolimus 1 mg capsule, 3 mg PO DAILY@0800 Transplant 02/12/22 11/06/23 History
immediate-release
gabapentin 100 mg capsule 100 mg PO HS Pain 11/06/23 11/06/23 History
levothyroxine 100 mcg tablet 100 mcg PO DAILY Thyroid 11/06/23 11/06/23 History
Pt's Own Ins. Pump U-500 [PT'S OWN See Rx Instructions .Route 11/10/23 Rx
INSULIN PUMP - U-500 HumuLIN R] .COMPLEX #1 unit
albuterol sulfate 90 mcg/actuation 2 puff inhalation Q4H PRN 11/10/23 Rx
aerosol inhaler shortness of breath or wheezing
#8.5 grams
alprazolam 0.25 mg tablet 0.25 mg PO [id number] PRN anxiety #10 11/10/23 Rx
tabs
hydralazine 10 mg tablet 10 mg PO BID #60 tabs 11/10/23 Rx
polyethylene glycol 3350 17 gram 17 g PO DAILY #30 ea 11/10/23 Rx
oral powder packet (HealthyLax)
sennosides 8.6 mg-docusate sodium 1 tab PO BID #60 tabs 11/10/23 Rx
50 mg tablet (Stool
Softener-Stimulant Laxative)
Review of Systems
-
Scalp pain, itchy
All other systems: Negative unless noted
Physical Exam
Vital Signs
Vital Signs
Temp Pulse Resp BP Pulse Ox
97.7 F 90 21 147/93 95
03/04/24 08:32 03/04/24 09:23 03/04/24 08:32 03/04/24 09:23 03/04/24 08:32
Lab Results
WBC 5.9 10^3/uL (4.8-10.8) 03/03/24 13:37
RBC 4.38 10^6/uL (4.20-5.40) 03/03/24 13:37
Hgb 12.4 g/dL (12.0-16.0) 03/03/24 13:37
Hct 37.6 % (37.0-47.0) 03/03/24 13:37
Plt Count 265 10^3/uL (130-400) 03/03/24 13:37
Sodium 138 mmol/L (135-145) 03/03/24 13:37
Potassium 4.3 mmol/L (3.5-5.1) 03/03/24 13:37
Chloride 99 mmol/L (98-107) 03/03/24 13:37
Carbon Dioxide 30 mmol/L (22-30) 03/03/24 13:37
BUN 20 mg/dl (7-17) H 03/03/24 13:37
Creatinine 0.8 mg/dL (0.6-1.0) 03/03/24 13:37
eGFR > 60.00 03/03/24 13:37
Glucose 118 mg/dl (70-99) H 03/03/24 13:37
Calcium 10.0 mg/dl (8.4-10.2) 03/03/24 13:37
On 11/06/2023 tacrolimus level 4.6
Physical Exam
Patient is awake alert oriented and in no distress. Mood and affect were pleasant, insight and judgment were good. Pupils are equal round and reactive to light, extraocular movements are intact, sclera were anicteric. Hearing was normal, ears and
nose are intact. Oropharynx was clear. Neck was supple with trachea midline and no thyromegaly. Heart was regular rate and rhythm without rubs. Lower extremities without edema. Lungs were clear to auscultation bilaterally and with normal
excursion. Abdomen was soft, nontender, with normal active bowel sounds, and no hepatosplenomegaly. Skin was with rash on scalp and with normal turgor.
Data Reviewed
-
CT Scan: Report Reviewed by me (CT head on 03/03/2024 shows no acute disease)
Medical Tests (Nuc Med, Echo etc): Report Reviewed by me (Echocardiogram on 11/08/2023 shows ejection fraction 61%, moderate AR)
Labs: Labs Reviewed by me
Old Records: Reviewed
Assessment/Plan
-
Assessment
donor renal transplant [address] [place] [address]
Right-sided V1 zoster
Diabetes mellitus type 1
Hypertension
Plan
Patient reports that she takes Lasix only because if she does not she can easily go into volume overload though she has no significant history of heart failure
Renal function is otherwise stable and at baseline. Immunosuppressive therapy should be continued.
Tacrolimus level will be checked in the morning
IV fluids with normal saline 70 cc/h will be given while receiving intravenous acyclovir
Lasix may be continued to help facilitate urine output
Follow BMP
Discussed with patient and
[2024-03-04] MEDS: NSS 1000 IV (14:59)
--- NOTE | 2024-03-04 15:42 | PTCARENOTE ---
Spoke with Larisa from [facility]. received fax number to send information [phone]
[2024-03-04 16:37] VITALS: BP 130/64
--- NOTE | 2024-03-04 17:14 | W.PN.UPDATE ---
Update Note
Progress Note Update
I just spoke to [facility] including physicians Dr. Lakesha Henderson MD (transplant press officer) as well as Dr. Magui Rodas MD (hospitalist) at [facility], I discussed patient's case with them and they
accepted patient for emergent transfer to [facility]. Dr. Henderson recommended being careful with the patient's Lasix and keeping net volume positive, I discussed this with Dr. Núñez here at [facility] and
decision was made to stop the Lasix.
[2024-03-04] MEDS: VIROPTIC 1% EYE DROPS 1 DROP OPHTH ×4 (18:03→23:57)
[2024-03-04] MEDS: LOVENOX 40 MG SC (18:03)
[2024-03-04] MEDS: ULTRAM 25 MG PO (21:38)
[2024-03-04] MEDS: NEURONTIN 100 MG PO (21:43)
[2024-03-04] MEDS: PROGRAF 2 MG PO (21:46)
[2024-03-04] MEDS: APRESOLINE PO (21:48)
[2024-03-04 22:03] LABS: Glucose - Point of Care 179 mg/dl (70-99)
[2024-03-04 23:12] VITALS: BP 160/82
[2024-03-05] MEDS: VIROPTIC 1% EYE DROPS 1 DROP OPHTH ×8 (02:05→21:38)
[2024-03-05] MEDS: DILAUDID 0.25 MG IV ×3 (02:59→21:39)
[2024-03-05] MEDS: VIROPTIC 1% EYE DROPS OPHTH ×3 (04:15→14:00)
[2024-03-05] MEDS: SYNTHROID 100 MCG PO (05:30)
[2024-03-05] MEDS: NSS 1000 IV ×3 (05:30→19:50)
[2024-03-05] MEDS: ZOVIRAX INJECTION 112 MG IV ×2 (05:31→15:00)
[2024-03-05] MEDS: REGLAN 10 MG IV ×2 (05:34→12:21)
[2024-03-05 05:42] VITALS: BMI 22.0
[2024-03-05 07:20] VITALS: BP 170/86
[2024-03-05] MEDS: LOW STRENGTH ASPIRIN 81 MG PO (09:10)
[2024-03-05] MEDS: DELTASONE 5 MG PO (09:10)
[2024-03-05] MEDS: PROGRAF 3 MG PO (09:10)
[2024-03-05] MEDS: COZAAR 50 MG PO (09:11)
[2024-03-05] MEDS: MAG-TAB SR 84 MG PO (09:11)
[2024-03-05] MEDS: APRESOLINE PO ×2 (09:11→09:15)
[2024-03-05] MEDS: SENOKOT-S PO ×2 (09:20→19:54)
[2024-03-05] MEDS: MIRALAX PO (09:20)
[2024-03-05 09:21] LABS: Blood Urea Nitrogen 18 mg/dl (7-17); Calcium 9.2 mg/dl (8.4-10.2); Carbon Dioxide 20 mmol/L (22-30); Chloride 101 mmol/L (98-107); Estimated Creatinine Clearance 69 ml/min; Glucose 107 mg/dl (70-99); Potassium 3.8 mmol/L (3.5-5.1); Sodium 135 mmol/L (135-145); eGFR > 60.00
[2024-03-05] MEDS: ZOFRAN 4 MG IV ×2 (09:21→21:39)
[2024-03-05 09:26] LABS: Glucose - Point of Care 91 mg/dl (70-99)
[2024-03-05] MEDS: NSS (PRESERVATIVE FREE) 8 ML IV ×2 (09:26→19:52)
[2024-03-05] MEDS: PEPCID 20 MG IV ×2 (09:26→19:54)
[2024-03-05] MEDS: PATIENT'S OWN INSULIN PUMP SC ×4 (09:30→21:38)
--- NOTE | 2024-03-05 09:39 | W.PN.NEPH.PH ---
Today's Communication / Plan
-
increase IVF
Assessment/Plan
-
Assessment
donor renal transplant [address] [place] [address]
Right-sided V1 zoster
Diabetes mellitus type 1
Hypertension
Plan
off lasix for now
increase IVF to 100ml/hr
await FK level
-
-
Date of Service: March 05, 2024
CC / HPI / ROS
-
Chief Complaint:
renal transplant
History of Present Illness:
labs pending
BP stable
nonoliguric with IVF
on acyclovir for facial shingles
Review of Systems:
no CP/SOB
reflux
Labs
-
Labs:
Sodium 135 mmol/L (135-145) 03/05/24 08:43
Potassium 3.8 mmol/L (3.5-5.1) 03/05/24 08:43
Chloride 101 mmol/L (98-107) 03/05/24 08:43
Carbon Dioxide 20 mmol/L (22-30) L 03/05/24 08:43
BUN 18 mg/dl (7-17) H 03/05/24 08:43
Creatinine 0.7 mg/dL (0.6-1.0) 03/05/24 08:43
eGFR > 60.00 03/05/24 08:43
Glucose 107 mg/dl (70-99) H 03/05/24 08:43
Calcium 9.2 mg/dl (8.4-10.2) 03/05/24 08:43
Physical Exam
-
Vital Signs:
Vital Signs
Temp Pulse Resp BP Pulse Ox
98.1 F 79 18 170/86 98
03/05/24 07:20 03/05/24 09:11 03/05/24 07:20 03/05/24 09:11 03/05/24 07:20
Cardiovascular:: Regular rate and rhythm
Respiratory:: Bilateral: CTA
Lung Excursion:: Normal
Abdomen:: Nontender and Soft
Bowel Sounds:: Normal
Extremity Edema:: None: Bilateral:
--- NOTE | 2024-03-05 09:40 | CON.NEURO ---
Consultation
Order
Date of Consultation: 03/05/24
Requesting Provider: Mingo Carreon MD
Reason for Consult: anisocoria
CC: neck pain
HPI: This is a 63-year-old immunocompromised woman who presented to [facility] on March 03, 2024 with right periorbital pain and rash. According to the patient her symtpoms started several days ago. He endorses moderate retroorbital
pain and denies having diplopia, dysphagia, change in taste/smell, tinnitus or vertigo. Ms. Ugarte has had chronic R>L neck pain radiating in the R occipital area. She has been on Neurontin 100mg QHS PRN for distal paresthesias in the legs.
CT head-no acute fracture involving the orbits or visualized skull base. Globes are spherical without proptosis. Lenses are in appropriate position. There is no retro-orbital hematoma. Intraocular muscles and lacrimal glands intact and symmetric
bilaterally. No evidence for preseptal or postseptal cellulitis.
ER VS: 136/84-181/85, 70, afebrile.
PDMP: Alprazolam 0.25 Mg� 60 tabs filled in on 02/17/2024
MAR: Hydromorphone 0.25 mg g, Tramadol 25 mg , Oxycodone 5 mg given on 03/04/2024.
Labs: Glucose�118, normal WBCs, sodium, creatinine.
PMH: right renal mass, type I DM, Sarcoidosis, CAD, HTN, L breast CA, hypothyroidism, vit D deficiency, SINCERE,
PSH: bilateral cataract surgeries, [employer], donor L renal transplant(2001), lumpectomy, tonsillectomy, cholecystectomy, carpal tunnel release
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
FH: Bone cancer, coronary disease, hypertension
All: Penicillins, sulfas, Compazine, cefuroxime, ciprofloxacin
ROS:Constitutional: Negative. Negative for chills, fever and unexpected weight change.
HENT: Negative for ear pain, hearing loss, tinnitus and trouble swallowing.
Eyes: Negative. Negative for photophobia, pain and visual disturbance.
Respiratory: Negative for cough, choking and shortness of breath.
Cardiovascular: Negative for chest pain, palpitations and leg swelling.
Gastrointestinal: Negative for abdominal pain and vomiting.
Endocrine: Negative. Negative for cold intolerance.
Genitourinary: Negative for dysuria, flank pain and urgency.
Musculoskeletal: Positive for neck pain
Skin: Negative for rash.
Allergic/Immunologic: Negative. Negative for immunocompromised state.
Neurological: Positive for headache, retroauricular pain, negative for diplopia, vertigo, dysarthria, dysphagia, chronic intermittent distal paresthesias
Psychiatric/Behavioral: Positive intermittent anxiety
General: Well developed. In no acute distress.
Cardio: Regular rate and rhythm without murmur. Extremities are without cyanosis or edema.
Neuro:
Mental Status: Alert, oriented to person, place, and date. Normal attention and recall. Good fund of knowledge. Follows complex requests across the midline. Comprehension, naming, and repetition intact. Immediate and delayed recall 3/3.
Cranial Nerves: . Pupils are equally round, surgical. OS 3mm, OD 3.5 mm. EOMs full. Visual beckham full to confrontation. No ptosis. No nystagmus. V1-V3 intact to light touch and pinprick bilaterally, symmetric. Face symmetric. Normal hearing
AU. The palate elevated well. SCMs and traps 5/5. Tongue midline. No dysarthria.
Motor: Normal bulk and tone. No pronator or arm drift. Strength 5/5 throughout. No clonus.
Reflexes: 3+ throughout the upper extremities and knees. Neg Holland's BL. Neuropathy plantar responses flexor bilaterally.
Sensory: Normal vibration at the toes, allodynia over R V1
Coordination: No dysmetria or tremor.
Gait: deferred
Assessment and Plan:
I. R V1 Herpes Zoster
II. H/o sarcoidosis
III. Right renal mass
IV. Probably postsurgical anisocoria. No clear evidence of additional to CN V cranial nerve abnormalities.
V. Neck pain
-Continue IV acyclovir
-Avoid opioids for treatment of headache
-Titrate Gabapentin as tolerated
-Brain MRi wo sincere, MRA head wo sincere
-Ophthalmology, oncology consult
-C spine XR
-PT
-TSH
-Will follow
I personally reviewed all radiology and labs along with past medical records pertinent to current medical problems. Total time spent in patient care is 60 minutes.
Thank you for allowing us to participate in the care of this patient. We will continue to follow. Please do not hesitate to contact us with any questions or concerns.
Subjective/Objective
Subjective Data
Date of Service: March 05, 2024
Objective Data
Vital Signs
Temp Pulse Resp BP Pulse Ox
36.7 C 79 18 170/86 98
03/05/24 07:20 03/05/24 09:11 03/05/24 07:20 03/05/24 09:11 03/05/24 07:20
Lab Results
03/05/24 08:43
Sodium 135 mmol/L (135-145) 03/05/24 08:43
Potassium 3.8 mmol/L (3.5-5.1) 03/05/24 08:43
BUN 18 mg/dl (7-17) H 03/05/24 08:43
Glucose 107 mg/dl (70-99) H 03/05/24 08:43
Calcium 9.2 mg/dl (8.4-10.2) 03/05/24 08:43
Patient Allergies
cefuroxime Allergy (Severe, Verified 03/03/24 23:10)
Anaphylaxis
ciprofloxacin [From Cipro] Allergy (Verified 03/03/24 20:55)
Anaphylaxis
Penicillins Allergy (Verified 03/03/24 13:28)
Shortness of Breath
prochlorperazine [From Compazine] Allergy (Verified 03/03/24 13:28)
Anxiety
Sulfa (Sulfonamide Antibiotics) Allergy (Verified 03/03/24 13:28)
Rash
Medications
-
Active Medications
Generic Name Dose Route Start Last Admin
Trade Name Freq PRN Reason Stop Dose Admin
Acetaminophen 650 mg 03/03/24 20:53 03/04/24 13:53
Acetaminophen 325 Mg Tablet PO 03/31/24 20:52 650 mg
Q4HPRN PRN Administration
mild pain/AUGUST/temp> 100.4F
Albuterol 2 puff 03/03/24 19:04
Albuterol Hfa [90 Mcg/Dose] Inhaler INH
R Q4HPRN PRN
shortness of breath or wheezin
Protocol
Alprazolam 0.25 mg 03/04/24 21:17 03/04/24 21:38
Alprazolam 0.25 Mg Tablet PO 04/01/24 21:16 0.25 mg
[id number] PRN Administration
anxiety
Aspirin 81 mg 03/04/24 08:00 03/05/24 09:10
Aspirin 81 Mg Chewable Tablet PO 04/01/24 07:59 81 mg
DAILY ADRY Administration
Bisacodyl 10 mg 03/03/24 20:53
Bisacodyl 10 Mg Rectal Suppository RECTAL 03/31/24 20:52
[id number] PRN
constipation
Enoxaparin Sodium 40 mg 03/04/24 18:00 03/04/24 18:03
Enoxaparin Sodium 40 Mg/0.4 Ml Syringe SC 04/01/24 17:59 40 mg
QPM ADRY Administration
Famotidine 20 mg 03/05/24 08:30 03/05/24 09:26
Famotidine 20 Mg/2 Ml Vial IV 04/02/24 08:29 20 mg
Q12 ADRY Administration
Gabapentin 100 mg 03/03/24 22:00 03/04/24 21:43
Gabapentin 100 Mg Capsule PO 03/31/24 21:59 100 mg
HS ADRY Administration
Hydralazine HCl 10 mg 03/03/24 20:00 03/05/24 09:11
Hydralazine 10 Mg Tablet PO 03/31/24 19:59 10 mg
BID ADRY Administration
Hydromorphone HCl 0.25 mg 03/05/24 08:18
Hydromorphone 0.25 Mg/0.5 Ml Syringe IV 03/19/24 08:17
Q4HPRN PRN
severe pain
Acyclovir Sodium 600 mg/ 112 mls @ 100 mls/hr 03/04/24 14:00 03/05/24 05:31
Sodium Chloride IV 03/14/24 13:59 112 mls
Q8H ADRY Administration
Sodium Chloride 1,000 mls @ 70 mls/hr 03/04/24 15:00 03/05/24 05:30
Nss IV 1,000 mls
.[id number] ADRY Administration
Levothyroxine Sodium 100 mcg 03/04/24 06:00 03/05/24 05:30
Levothyroxine 100 Mcg Tablet PO 04/01/24 05:59 100 mcg
DAILY @ 0600 ADRY Administration
Lorazepam 0.25 mg 03/04/24 14:19
Lorazepam 2 Mg/Ml Vial IV 04/01/24 14:18
ONCE PRN
30 minutes prior to MRI
Losartan Potassium 50 mg 03/04/24 08:00 03/05/24 09:11
Losartan 50 Mg Tablet PO 04/01/24 07:59 50 mg
DAILY ADRY Administration
Magnesium 84 mg 03/04/24 08:00 03/05/24 09:11
Magnesium Lactate 84 Mg Tablet PO 04/01/24 07:59 84 mg
DAILY ADRY Administration
Metoclopramide HCl 10 mg 03/03/24 20:53 03/05/24 05:34
Metoclopramide 10 Mg/2 Ml Vial IV 03/31/24 20:52 10 mg
Q6HPRN PRN Administration
Nausea/Vomiting
Ondansetron HCl 4 mg 03/04/24 12:58 03/05/24 09:21
Ondansetron 4 Mg/2 Ml Vial IV 04/01/24 12:57 4 mg
Q6HPRN PRN Administration
NAUSEA/VOMITING
Patient Own Medication 0 units 03/03/24 22:00 03/05/24 09:30
Insulin Pump - Patient's Own SC 03/31/24 21:59 Not Given
ACHS ADRY
Polyethylene Glycol 17 grams 03/04/24 08:00 03/05/24 09:20
Polyethylene Glycol Powder 17 Grams Packet PO 04/01/24 07:59 Not Given
DAILY ADRY
Prednisone 5 mg 03/04/24 08:00 03/05/24 09:10
Prednisone 5 Mg Tablet PO 04/01/24 07:59 5 mg
DAILY ADRY Administration
Senna/Docusate Sodium 1 tablet 03/03/24 20:00 03/05/24 09:20
Docusate W/Senna (Suzan-Colace) Tablet PO 03/31/24 19:59 Not Given
BID ADRY
Sodium Chloride 0 flush 03/03/24 20:00 03/03/24 22:10
Sodium Chloride 0.9% (Flush) Syringe IV 03/31/24 19:59 2 flush
PER PROTOCOL ADRY Administration
Sodium Chloride 0.125 ml 03/04/24 15:00
Nss (Pf) 10 Ml Vial For Ativan 0.25 Mg Dose IV 04/01/24 14:59
PRN PRN
IV LORAZEPAM DILUTION
Sodium Chloride 8 ml 03/05/24 08:30 03/05/24 09:26
Nss 8 Ml Q12 IV 04/02/24 08:29 8 ml
Q12 ADRY Administration
Tacrolimus 3 mg 03/04/24 08:00 03/05/24 09:10
Tacrolimus 1 Mg Capsule PO 04/01/24 07:59 3 mg
DAILY@0800 ADRY Administration
Tacrolimus 2 mg 03/03/24 20:00 03/04/24 21:46
Tacrolimus 1 Mg Capsule PO 03/31/24 19:59 2 mg
DAILY@1999 ADRY Administration
Trifluridine 0 drop 03/04/24 18:00 03/05/24 09:22
Trifluridine 1% (Ophthalmic Solution) 7.5 Ml Bottle OPHTH 03/11/24 16:10 1 drop
Q2 ADRY Administration
Zolpidem Tartrate 5 mg 03/03/24 20:53 03/03/24 21:48
Zolpidem Tartrate 5 Mg Tablet PO 03/31/24 20:52 5 mg
HSPRN PRN Administration
sleep
Home Medications
�Medication �Instructions �Recorded
aspirin 81 mg chewable tablet 81 mg PO DAILY Blood clot 02/12/22
prevention/tx
ergocalciferol (vitamin D2) 1,250 1,250 mcg PO MO Supplement 02/12/22
mcg (50,000 unit) capsule
folic acid 1 mg tablet 1 mg PO DAILY Supplement 02/12/22
furosemide 40 mg tablet 40 mg PO DAILY Fluid 02/12/22
retention/Swelling
magnesium oxide 400 mg (241.3 mg 400 mg PO DAILY Supplement 02/12/22
magnesium) tablet
prednisone 5 mg tablet 5 mg PO DAILY Transplant 02/12/22
tacrolimus 1 mg capsule, 2 mg PO QPM@1999 Transplant 02/12/22
immediate-release
tacrolimus 1 mg capsule, 3 mg PO DAILY@0800 Transplant 02/12/22
immediate-release
gabapentin 100 mg capsule 100 mg PO HS Pain 11/06/23
levothyroxine 100 mcg tablet 100 mcg PO DAILY Thyroid 11/06/23
Pt's Own Ins. Pump U-500 [PT'S OWN See Rx Instructions .Route 11/10/23
INSULIN PUMP - U-500 HumuLIN R] .COMPLEX #1 unit
albuterol sulfate 90 mcg/actuation 2 puff inhalation Q4H PRN 11/10/23
aerosol inhaler shortness of breath or wheezing
#8.5 grams
alprazolam 0.25 mg tablet 0.25 mg PO [id number] PRN anxiety #10 11/10/23
tabs
hydralazine 10 mg tablet 10 mg PO BID #60 tabs 11/10/23
polyethylene glycol 3350 17 gram 17 g PO DAILY #30 ea 11/10/23
oral powder packet (HealthyLax)
sennosides 8.6 mg-docusate sodium 1 tab PO BID #60 tabs 11/10/23
50 mg tablet (Stool
Softener-Stimulant Laxative)
Vital Signs and Labs
-
Vital Signs and Labs:
Vital Signs
Temp Pulse Resp BP Pulse Ox
36.7 C 79 18 170/86 98
03/05/24 07:20 03/05/24 09:11 03/05/24 07:20 03/05/24 09:11 03/05/24 07:20
Lab Results
03/05/24 08:43
03/05/24 08:43
Sodium 135 mmol/L (135-145) 03/05/24 08:43
Potassium 3.8 mmol/L (3.5-5.1) 03/05/24 08:43
BUN 18 mg/dl (7-17) H 03/05/24 08:43
Glucose 107 mg/dl (70-99) H 03/05/24 08:43
Calcium 9.2 mg/dl (8.4-10.2) 03/05/24 08:43
Medications
-
Medications:
Generic Name Dose Route Start Last Admin
Trade Name Freq PRN Reason Stop Dose Admin
Acetaminophen 650 mg 03/03/24 20:53 03/04/24 13:53
Acetaminophen 325 Mg Tablet PO 03/31/24 20:52 650 mg
Q4HPRN PRN Administration
mild pain/AUGUST/temp> 100.4F
Albuterol 2 puff 03/03/24 19:04
Albuterol Hfa [90 Mcg/Dose] Inhaler INH
R Q4HPRN PRN
shortness of breath or wheezin
Protocol
Alprazolam 0.25 mg 03/04/24 21:17 03/05/24 12:19
Alprazolam 0.25 Mg Tablet PO 04/01/24 21:16 0.25 mg
[id number] PRN Administration
anxiety
Aspirin 81 mg 03/04/24 08:00 03/05/24 09:10
Aspirin 81 Mg Chewable Tablet PO 04/01/24 07:59 81 mg
DAILY ADRY Administration
Bisacodyl 10 mg 03/03/24 20:53
Bisacodyl 10 Mg Rectal Suppository RECTAL 03/31/24 20:52
[id number] PRN
constipation
Enoxaparin Sodium 40 mg 03/04/24 18:00 03/04/24 18:03
Enoxaparin Sodium 40 Mg/0.4 Ml Syringe SC 04/01/24 17:59 40 mg
QPM ADRY Administration
Ergocalciferol units 03/06/24 08:00
Ergocalciferol (Vitamin D-2) 17062 Units Capsule PO 04/03/24 07:59
MO ADRY
Famotidine 20 mg 03/05/24 08:30 03/05/24 09:26
Famotidine 20 Mg/2 Ml Vial IV 04/02/24 08:29 20 mg
Q12 ADRY Administration
Folic Acid 1 mg 03/05/24 13:00
Folic Acid 1 Mg Tablet PO 04/02/24 12:59
DAILY ADRY
Gabapentin 100 mg 03/03/24 22:00 03/04/24 21:43
Gabapentin 100 Mg Capsule PO 03/31/24 21:59 100 mg
HS ADRY Administration
Hydromorphone HCl 0.25 mg 03/05/24 08:18
Hydromorphone 0.25 Mg/0.5 Ml Syringe IV 03/19/24 08:17
Q4HPRN PRN
severe pain
Acyclovir Sodium 600 mg/ 112 mls @ 100 mls/hr 03/04/24 14:00 03/05/24 05:31
Sodium Chloride IV 03/14/24 13:59 112 mls
Q8H ADRY Administration
Sodium Chloride 1,000 mls @ 100 mls/hr 03/05/24 09:41 03/05/24 10:18
Nss IV 1,000 mls
.Q10H ADRY Administration
Levothyroxine Sodium 100 mcg 03/04/24 06:00 03/05/24 05:30
Levothyroxine 100 Mcg Tablet PO 04/01/24 05:59 100 mcg
DAILY @ 0600 ADRY Administration
Lorazepam 0.25 mg 03/04/24 14:19
Lorazepam 2 Mg/Ml Vial IV 04/01/24 14:18
ONCE PRN
30 minutes prior to MRI
Losartan Potassium 50 mg 03/04/24 08:00 03/05/24 09:11
Losartan 50 Mg Tablet PO 04/01/24 07:59 50 mg
DAILY ADRY Administration
Magnesium 84 mg 03/04/24 08:00 03/05/24 09:11
Magnesium Lactate 84 Mg Tablet PO 04/01/24 07:59 84 mg
DAILY ADRY Administration
Metoclopramide HCl 10 mg 03/03/24 20:53 03/05/24 12:21
Metoclopramide 10 Mg/2 Ml Vial IV 03/31/24 20:52 10 mg
Q6HPRN PRN Administration
Nausea/Vomiting
Metoprolol Succinate 25 mg 03/05/24 13:00
Metoprolol 25 Mg Extended Release Tablet PO 04/02/24 12:59
DAILY ADRY
Ondansetron HCl 4 mg 03/04/24 12:58 03/05/24 09:21
Ondansetron 4 Mg/2 Ml Vial IV 04/01/24 12:57 4 mg
Q6HPRN PRN Administration
NAUSEA/VOMITING
Patient Own Medication 0 units 03/03/24 22:00 03/05/24 12:34
Insulin Pump - Patient's Own SC 03/31/24 21:59 Not Given
ACHS ADRY
Polyethylene Glycol 17 grams 03/04/24 08:00 03/05/24 09:20
Polyethylene Glycol Powder 17 Grams Packet PO 04/01/24 07:59 Not Given
DAILY ADRY
Prednisone 5 mg 03/04/24 08:00 03/05/24 09:10
Prednisone 5 Mg Tablet PO 04/01/24 07:59 5 mg
DAILY ADRY Administration
Senna/Docusate Sodium 1 tablet 03/03/24 20:00 03/05/24 09:20
Docusate W/Senna (Suzan-Colace) Tablet PO 03/31/24 19:59 Not Given
BID ADRY
Sodium Chloride 0 flush 03/03/24 20:00 03/03/24 22:10
Sodium Chloride 0.9% (Flush) Syringe IV 03/31/24 19:59 2 flush
PER PROTOCOL ADRY Administration
Sodium Chloride 0.125 ml 03/04/24 15:00
Nss (Pf) 10 Ml Vial For Ativan 0.25 Mg Dose IV 04/01/24 14:59
PRN PRN
IV LORAZEPAM DILUTION
Sodium Chloride 8 ml 03/05/24 08:30 03/05/24 09:26
Nss 8 Ml Q12 IV 04/02/24 08:29 8 ml
Q12 ADRY Administration
Tacrolimus 3 mg 03/04/24 08:00 03/05/24 09:10
Tacrolimus 1 Mg Capsule PO 04/01/24 07:59 3 mg
DAILY@0800 ADRY Administration
Tacrolimus 2 mg 03/03/24 20:00 03/04/24 21:46
Tacrolimus 1 Mg Capsule PO 03/31/24 19:59 2 mg
DAILY@1999 ADRY Administration
Trifluridine 0 drop 03/04/24 18:00 03/05/24 12:34
Trifluridine 1% (Ophthalmic Solution) 7.5 Ml Bottle OPHTH 03/11/24 16:10 1 drop
Q2 ADRY Administration
Zolpidem Tartrate 5 mg 03/03/24 20:53 03/03/24 21:48
Zolpidem Tartrate 5 Mg Tablet PO 03/31/24 20:52 5 mg
HSPRN PRN Administration
sleep
Home Medications
-
Home Medications
aspirin 81 mg chewable tablet 81 mg PO DAILY Blood clot prevention/tx 02/12/22
ergocalciferol (vitamin D2) 1,250 mcg (50,000 unit) capsule 1,250 mcg PO MO Supplement 02/12/22
folic acid 1 mg tablet 1 mg PO DAILY Supplement 02/12/22
furosemide 40 mg tablet 40 mg PO DAILY Fluid retention/Swelling 02/12/22
magnesium oxide 400 mg (241.3 mg magnesium) tablet 400 mg PO DAILY Supplement 02/12/22
prednisone 5 mg tablet 5 mg PO DAILY Transplant 02/12/22
tacrolimus 1 mg capsule, immediate-release 2 mg PO QPM@1999 Transplant 02/12/22
tacrolimus 1 mg capsule, immediate-release 3 mg PO DAILY@0800 Transplant 02/12/22
gabapentin 100 mg capsule 100 mg PO HS Pain 11/06/23
levothyroxine 100 mcg tablet 100 mcg PO DAILY Thyroid 11/06/23
Pt's Own Ins. Pump U-500 [PT'S OWN INSULIN PUMP - U-500 HumuLIN R] See Rx Instructions .Route .COMPLEX #1 unit 11/10/23
albuterol sulfate 90 mcg/actuation aerosol inhaler 2 puff inhalation Q4H PRN shortness of breath or wheezing #8.5 grams 11/10/23
alprazolam 0.25 mg tablet 0.25 mg PO [id number] PRN anxiety #10 tabs 11/10/23
polyethylene glycol 3350 17 gram oral powder packet (HealthyLax) 17 g PO DAILY #30 ea 11/10/23
sennosides 8.6 mg-docusate sodium 50 mg tablet (Stool Softener-Stimulant Laxative) 1 tab PO BID #60 tabs 11/10/23
losartan 50 mg tablet (Cozaar) 50 mg PO DAILY 03/05/24
metoprolol succinate 25 mg tablet,extended release 24 hr (Toprol XL) 25 mg PO DAILY 03/05/24
[2024-03-05 11:03] LABS: Hematocrit 34.5 % (37.0-47.0); Hemoglobin 11.9 g/dL (12.0-16.0); Mean Corp Hgb Conc. 34.5 g/dL (33.0-37.0); Mean Corpuscular Hgb 27.4 pg (27.0-31.0); Mean Corpuscular Volume 79.5 fL (81.0-99.0); Red Blood Cell Count 4.34 10^6/uL (4.20-5.40); Red Cell Dist. Width 15.3 % (11.5-14.5); White Blood Cell Count 5.3 10^3/uL (4.8-10.8)
[2024-03-05 11:25] LABS: Platelet Count 211 10^3/uL (130-400)
[2024-03-05 11:26] LABS: Mean Platelet Volume 9.6 fL (7.4-10.4)
--- NOTE | 2024-03-05 11:53 | W.PN.ID1 ---
Date of Service
Date of Service: March 05, 2024
Today's Communication
Continue IV acyclovir for now.
Assessment / Plan
# Right side V1 Zoster with involvement adjacent upper V2, V3
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
# Multiple abx allergies: PCN, cefuroxime, sulfa, cipro
- pt clinically improving
-Continue IV acyclovir 600mg q8h (d2).
- Monitor renal function closely while on acyclovir. Stable today.
- Pt with right side eye pain, light sensitivity - both improving. Ophto recommended MRI orbit and follow-up as outpt.
- Continue Airborne isolation.
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
Diabetes mellitus type 1
donor kidney transplant 2001 on tacrolimus and prednisone
Sarcoidosis
CAD status post stents
Hypertension
Dyslipidemia
Hypothyroidism
Neuropathy
CVA
Nephrolithiasis
History of breast cancer status post left lumpectomy and radiation
Chief Complaint
-: Other (Zoster)
Subjective / Review of Systems
Feeling much improved. AUGUST and eye pain better.
Vital Signs / Physical Exam
Vital Signs
Vital Signs
Temp Pulse Resp BP Pulse Ox
98.1 F 79 18 170/86 98
03/05/24 07:20 03/05/24 09:11 03/05/24 07:20 03/05/24 09:11 03/05/24 07:20
Physical Exam
Constitutional: No Acute Distress and Comfortable
Head: Other (Right upper face/temporal red papular lesions evolving, 1 lesion crusting)
Eyes: No Conjunctival Hemorrhage and Sclera Anicteric
Cardiovascular: Regular Rate and S1/S2
Gastrointestinal: Soft, Non Tender and Non Distended
Neurological: AO x 3
Objective Data
Lab Data
Lab Results
03/05/24 08:43
03/05/24 08:43
Estimated Creat Clear 69 ml/min 03/05/24 08:43
Most recent labs reviewed.
03/03/24 CT head/orbits: No acute fracture involving the orbits or visualized skull base. Globes are spherical without proptosis. Lenses are in appropriate position. There is no retro-orbital hematoma. Intraocular muscles and lacrimal glands intact
and symmetric bilaterally. No evidence for preseptal or postseptal cellulitis.
[2024-03-05] MEDS: XANAX 0.25 MG PO (12:19)
[2024-03-05 12:33] LABS: Glucose - Point of Care 155 mg/dl (70-99)
[2024-03-05] MEDS: TOPROL XL 25 MG PO (13:05)
[2024-03-05] MEDS: FOLVITE 1 MG PO (13:05)
[2024-03-05] MEDS: NSS (PRESERVATIVE FREE) 0.125 ML IV (13:06)
[2024-03-05] MEDS: ATIVAN 0.25 MG IV (13:06)
--- NOTE | 2024-03-05 13:56 | W.PN.HOSP.TC ---
Addendum entered and electronically signed by Mingo Carreon MD 03/05/24 16:00:
Patient's blood pressure remains high -- patient mentioned this happens every time Lasix is held -- spoke via [place] [facility] with Dr. Núñez (heater helper forge) who said it is okay to order Hydralazine prn for blood pressure control; ordered prn IV Hydralazine.
Appreciate nephrology assistance.
Original Note:
Today's Communication/Plan
-
Patient is doing better -- less eyelid swelling, pain under better control, still some discomfort with eye movement, but visual acuity intact
Still pending bed availability and transfer to [facility] at [facility]
Continue Acyclovir
Continue IV fluids
Monitor Renal Function
If there are any changes in patient's vision or symptoms become worse, or if renal function gets worse, [facility] will need to be called immediately to transfer the patient on a more urgent status
Assessment / Plan
Assessment / Plan
Physical Exam
General: Not in acute distress
HEENT: Normocephalic
Respiratory: Clear
Cardiac: S1/S2 and Regular Rhythm
GI: Soft, Non Tender, Non Distended and Normal Bowel Sounds
Musculoskeletal: No Cyanosis and No Edema
Skin: Warm. Rash - erythematous evolving papular round lesions on right side of the forehead to latter-day, scalp, upper eyelid and outer right ear
Neuro: AAO x 3. Visual acuity testing intact on the right eye. EOMI with some discomfort behind right eye on exam. Right eyelid swelling and erythema has improved. Otherwise, cranial nerves 2 through 12, strength and sensation are grossly intact
bilaterally.
Psych: Anxious
Assessment/Plan
IMPRESSION:
63-year-old female with history of disease donor kidney transplant 20 years ago on tacrolimus and prednisone, CAD, insulin-dependent diabetes presented to the emergency department with persistent right-sided headache and a right-sided facial rash.
PLAN:
# Right side V1 distribution Zoster with involvement adjacent V2, V3, possible C2
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
# Multiple abx allergies: PCN, cefuroxime, sulfa, cipro
# Light Sensitivity in the Right Eye as well as right eye pain with movement
Rash and Headache -patient with a erythematous macular rash that appears to be distributed in the V1 branch of the right side trigeminal nerve. Appears early and no vesicles at this time. However the rash is mostly on the right, with some
extending to left with mild periorbital erythema. No vision changes and visual acuity is intact. Mild foreign body sensation on the medial aspect. No fevers or chills. Given the distribution of the rash, immunocompromise status and early
findings, she has prodromal head pain that could be consistent with a noncomplicated zoster. She is at high risk for dissemination
- Previously received on admission Valacyclovir 1g q 8 hr, 7 to 14 days
- IV acyclovir was started on 03/05/24 -- continue IV Acyclovir 600mg q8h
- Maintain normal saline 100 cc/hr while on IV acyclovir to lower the risk of nephrotoxicity
- Stopped home Lasix for now to avoid kidney injury to transplanted kidneys
- Appreciate nephrology
- Pain control with prn IV dilaudid as requested by patient due to severe pain
- Spoke with on-call hot man, and Dr. Itzel Mckinley recommended no more than 1 week with Trifluridine (1%) - 1 drop to right eye every 2 hours while awake, MRI Brain
and Orbits with contrast to check for any possible optic neuritis, recommended systemic antiviral medication (also checking MRA Head without contrast)
- Appreciate neurology evaluation regarding possible anisocoria -- MRI imaging and C-Spine X-Ray, TSH, CRP
- Continue airborne isolation
Kidney Tx - DDKTx 20 years ago at [facility]. Stable renal function
- continue Tacrolimus 3 mg in the am and 2 mg at night
- prednisone 5 mg daily
- Appreciate nephrology
- IV fluids Normal Saline at 100 cc/hr since getting Acyclovir
- HOLD Lasix
- Check Tacrolimus level
Nausea
-Zofran
Right Renal Mass
History of Sarcoidosis
IDDM
- patient own pump
- fingerstick glucose achs
Hypertension
- losartan 50 daily
- Metoprolol 25 daily
- hydralazine 10 bid
- Lasix 40 mg daily
Hypothyroidism
- continue levothyroxine 100 mcg
DVT Prophylaxis: Lovenox subq
Code Status: Full Code
I spoke extensively to patient's Gene today, and explored possible transfer to [facility], but [facility] physicians recommend that if patient is transferred to transfer to [facility] in [facility]
[place] where they said patient's current transplant team is. Patient's said Dr. Kendy Spivey about 1 month ago said they would like to see patient and monitor patient's kidney transplant at [facility].
On March 04, 2024, I spoke to [facility] center including physicians Dr. Lakesha Henderson MD (transplant heater helper forge) as well as Dr. Magui Rodas MD (hospitalist) at [facility], I discussed patient's case with
them and they accepted patient for emergent transfer to the [facility]. Dr. Henderson recommended being careful with the patient's Lasix and keeping net volume positive, I discussed this with Dr. Núñez here at
[facility] and decision was made to stop the Lasix. Patient is pending transfer to [facility].
Anticipated Discharge: > 48 hours
Subjective/Interval History
-
Date of Service: March 05, 2024
Patient was seen and examined. She reported she was feeling much better but still having nausea at times, and pain in her right face and head.
Objective Data
-
Labs:
Laboratory Results
03/05/24
08:43
WBC 5.3
Hgb 11.9 L
Hct 34.5 L
Plt Count 211 D
Sodium 135
Potassium 3.8
Chloride 101
Carbon Dioxide 20 L
BUN 18 H
Creatinine 0.7
Glucose 107 H
Calcium 9.2
Vital Signs:
Vital Signs
Temp Pulse Resp BP Pulse Ox
98.1 F 78 18 169/79 98
03/05/24 07:20 03/05/24 13:05 03/05/24 07:20 03/05/24 13:05 03/05/24 07:20
I&O
03/04/24 03/05/24 03/06/24
06:59 06:59 06:59
Intake Total 480 / 480 2154 / 2154
Balance 480 / 480 2154 / 2154
[2024-03-05 14:52] LABS: Erythrocyte Sed Rate 16 mm/hour (0-20)
[2024-03-05 15:17] LABS: Glucose - Point of Care 167 mg/dl (70-99)
[2024-03-05 15:50] VITALS: BP 171/91
[2024-03-05] MEDS: APRESOLINE 5 MG IV (16:45)
[2024-03-05] MEDS: LOVENOX 40 MG SC (17:09)
[2024-03-05 18:14] LABS: C-Reactive Protein < 5.00 mg/L (0.0-10.00)
[2024-03-05 19:45] LABS: Free T4 1.15 ng/dl (0.78-2.19)
[2024-03-05] MEDS: PROGRAF 2 MG PO (19:54)
[2024-03-05 21:13] LABS: Glucose - Point of Care 135 mg/dl (70-99)
[2024-03-05] MEDS: NEURONTIN 300 MG PO (21:38)
[2024-03-05] MEDS: ZOVIRAX INJECTION 262 MG IV (21:38)
[2024-03-05 23:19] VITALS: BP 146/61
[2024-03-06] MEDS: VIROPTIC 1% EYE DROPS OPHTH ×5 (00:02→23:57)
[2024-03-06] MEDS: VIROPTIC 1% EYE DROPS 1 DROP OPHTH ×9 (04:00→22:08)
[2024-03-06] MEDS: NSS 1000 IV ×2 (06:18→17:50)
[2024-03-06] MEDS: SYNTHROID 100 MCG PO (06:18)
[2024-03-06] MEDS: ZOVIRAX INJECTION 262 MG IV (06:19)
[2024-03-06 07:20] VITALS: BP 158/73
[2024-03-06] MEDS: PATIENT'S OWN INSULIN PUMP 2 UNITS SC (07:30)
[2024-03-06 08:06] LABS: Glucose - Point of Care 207 mg/dl (70-99)
[2024-03-06] MEDS: MIRALAX 17 GRAMS PO (08:07)
[2024-03-06] MEDS: PROGRAF 3 MG PO (08:07)
[2024-03-06] MEDS: TOPROL XL 25 MG PO (08:08)
[2024-03-06] MEDS: COZAAR 50 MG PO (08:08)
[2024-03-06] MEDS: MAG-TAB SR 84 MG PO (08:08)
[2024-03-06] MEDS: LOW STRENGTH ASPIRIN 81 MG PO (08:08)
[2024-03-06] MEDS: PEPCID 20 MG IV ×2 (08:09→20:16)
[2024-03-06] MEDS: SENOKOT-S 1 TABLET PO (08:09)
[2024-03-06] MEDS: NSS (PRESERVATIVE FREE) 8 ML IV ×2 (08:09→20:15)
[2024-03-06] MEDS: FOLVITE 1 MG PO (08:09)
[2024-03-06] MEDS: DELTASONE 5 MG PO (08:09)
[2024-03-06] MEDS: DRISDOL (VITAMIN D2) 50000 UNITS PO (08:36)
[2024-03-06 09:20] VITALS: BP 158/73
--- NOTE | 2024-03-06 09:20 | W.PN.HOSP.TC ---
Today's Communication/Plan
-
continue IVF for now pending labs and eval by nephrology
change status to inpt
Assessment / Plan
Assessment / Plan
Assessment/Plan
IMPRESSION:
63-year-old female with history of disease donor kidney transplant 20 years ago on tacrolimus and prednisone, CAD, insulin-dependent diabetes presented to the emergency department with persistent right-sided headache and a right-sided facial rash.
# Right side V1 distribution Zoster with involvement adjacent V2, V3, possible C2
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
# Multiple abx allergies: PCN, cefuroxime, sulfa, cipro
# Light Sensitivity in the Right Eye as well as right eye pain with movement, that has decreased
Rash and Headache -patient with a erythematous macular rash that appears to be distributed in the V1 branch of the right side trigeminal nerve. Appears early and no vesicles at this time. However the rash is mostly on the right, with some
extending to left with mild periorbital erythema. No vision changes and visual acuity is intact. Mild foreign body sensation on the medial aspect. No fevers or chills. Given the distribution of the rash, immunocompromise status and early
findings, she has prodromal head pain that could be consistent with a noncomplicated zoster. She is at high risk for dissemination
- Previously received on admission Valacyclovir 1g q 8 hr, 7 to 14 days
- IV acyclovir was started on 03/05/24 -- continue IV Acyclovir 600mg q8h
- Maintain normal saline 100 cc/hr while on IV acyclovir to lower the risk of nephrotoxicity
IVF to be continued as per nephrology
- Stopped home Lasix for now to avoid kidney injury to transplanted kidneys
pt asking to resume due to hx of HTN, requested hold off until labs have become available (still pending) and eval by nephrology
- Appreciate nephrology
- Pain control with prn IV dilaudid as requested by patient due to severe pain
requested pt try to limit due to constipation
- Dr. Carreon Spoke with on-call career technical counselor, and Dr. Itzel Mckinley recommended no more than 1 week with Trifluridine (1%) - 1 drop to right eye every 2 hours while awake,
MRI Brain: Subtle increased T2-weighted signal and enhancement involving the superficial skin and subcutaneous soft tissues overlying the right orbit, probably within the eyelid. Findings would suggest inflammation of the soft tissues anterior to
the right orbit, with no evidence for abscess.
No evidence for intraorbital abnormality. Evidence of previous bilateral cataract surgery.
No evidence of acute intracranial abnormality.
Mild to moderate T2 and FLAIR white matter hyperintensities, commonly seen with aging and usually attributed to small vessel ischemic disease.
Kidney Tx - DDKTx 20 years ago at [facility]. Stable renal function
- continue Tacrolimus 3 mg in the am and 2 mg at night
- prednisone 5 mg daily
- Appreciate nephrology
- IV fluids Normal Saline at 100 cc/hr since getting Acyclovir
- HOLD Lasix
- Tacrolimus leve pendingl
today's labs still pending
Nausea
Constipation
with pain attenuating, discussed with pt trying to limit narcotic analgesics, in meantime will allow for prn MOM in addition to current Tx
-Zofran
Right Renal Mass
CT scan from 11/07/23: Pulmonary nodules. 2.5 mm nodule in the left costophrenic angle. 2.9 mm groundglass nodule in the posterior right lung base. Advise comparison with any prior outside examination.
Suspected treated metastatic lesion in the liver along the posterior right lobe margin measuring approximately 3 cm. At the junction of the medial and lateral segments of the left lobe there is a 1.1 cm low-attenuation space-occupying lesion. There
are additional tiny 5 mm or less low-attenuation hepatic structures which are too small to fully characterize. The possibility of metastatic disease cannot be entirely excluded. Advise direct comparison with any prior outside examination.
Severe bilateral [place] renal cortical atrophy. 10 mm enhancing right renal mass suspicious for renal cell carcinoma. Advise direct comparison with any prior outside examination.
Left pelvic transplant kidney. No obstructive uropathy. Few tiny renal cortical cysts.
No evidence of bowel obstruction.
Constipation with moderate to large fecal burden.
Under distention versus mild gastric wall thickening, most pronounced in the region of the gastric cardia, and to a lesser degree in the region of the antrum. Consider further evaluation with endoscopy.
History of Sarcoidosis
IDDM
- patient own pump
- fingerstick glucose achs
Hypertension
- losartan 50 daily
- Metoprolol 25 daily
- hydralazine 10 bid
- hold Lasix 40 mg daily
Hypothyroidism
- continue levothyroxine 100 mcg
TSH 46.1/T4 1.15
DVT Prophylaxis: Lovenox subq
Code Status: Full Code
as per Dr. Bolden, pt meets criteria to change to inpt admission
Dr. Carreon spoke extensively to patient's Gene today, and explored possible transfer to [facility], but [facility] physicians recommend that if patient is transferred to transfer to [facility]
in [place] where they said patient's current transplant team is. Patient's said Dr. Kendy Spivey about 1 month ago said they would like to see patient and monitor patient's kidney transplant at [place].
If pt is not transferred to [facility], will need close follow up with opth post dc
On March 04, 2024, I spoke to [place] transfer center including physicians Dr. Lakesha Henderson MD (transplant life skills educator) as well as Dr. Magui Rodas MD (hospitalist) at [facility], I discussed patient's case with
them and they accepted patient for emergent transfer to the [facility]. Dr. Henderson recommended being careful with the patient's Lasix and keeping net volume positive, I discussed this with Dr. Núñez here at
[facility] and decision was made to stop the Lasix. Patient is pending transfer to [facility].
Complex situation
Anticipated Discharge: > 48 hours
Subjective/Interval History
-
Date of Service: March 06, 2024
Still with rt sided head/facial pain, but has lessened
Objective Data
-
Labs:
Laboratory Results
03/06/24
09:12
WBC Pending
Hgb Pending
Hct Pending
Plt Count Pending
Sodium Pending
Potassium Pending
Chloride Pending
Carbon Dioxide Pending
BUN Pending
Creatinine Pending
Glucose Pending
Calcium Pending
Vital Signs:
Vital Signs
Temp Pulse Resp BP Pulse Ox
98.4 F 79 18 146/61 96
03/05/24 23:19 03/05/24 23:19 03/05/24 23:19 03/05/24 23:19 03/05/24 23:19
I&O
03/05/24 03/06/24 03/07/24
06:59 06:59 06:59
Intake Total 4 / 2154 2184 / 2184
Balance 2154 / 2154 2184 / 2184
Review of Systems
-
History Source: Patient and Coordinated Provider
Constitutional: Denies Fever
EENT: Reports Other (rt sided head/face pain); Denies Eye Pain
Respiratory: Reports No Symptoms
Cardiac: Reports No Symptoms
Abdomen/GI: Reports Constipated
Genitourinary: Reports No Symptoms
Musculoskeletal: Reports No Symptoms
Neuro: Reports Headache
Physical Exam
-
General: Well Developed, Well Nourished and No Apparent Distress
HEENT: Normocephalic, Atraumatic, Moist Mucous Membranes and Other (minimal rt upper eyelid swelling)
Respiratory: Clear to Auscultation; Negative Wheezes, Rales or Rhonchi
Cardiac: Regular Rhythm and S1/S2
GI: Soft, Nontender, Nondistended and Normal Bowel Sounds
Musculoskeletal: No Clubbing, No Cyanosis and No Edema
Skin: Warm, Dry and Rash (rt sided facial rash decreased, no active vesicles appreciated)
Neuro: Awake, Alert and Oriented
Psych: Calm
[2024-03-06 09:34] LABS: % Basophils 1.1 % (0-2); % Eosinophils 2.3 % (0-6); % Immature Granulocytes 0.4 % (0-0.5); % Lymphocytes 33.8 % (20.5-51.1); % Monocytes 8.2 % (1.7-9.3); % Neutrophils 54.2 % (42.2-75.2); Absolute Basophils 0.1 10^3/uL (0-0.2); Absolute Eosinophils 0.1 10^3/uL (0-0.7); Absolute Lymphocytes 1.8 10^3/uL (1.2-3.4); Absolute Monocytes 0.4 10^3/uL (0.1-0.6); Absolute Neutrophils 2.9 10^3/uL (1.4-6.5); Hematocrit 35.8 % (37.0-47.0); Hemoglobin 12.2 g/dL (12.0-16.0); Mean Corp Hgb Conc. 34.1 g/dL (33.0-37.0); Mean Corpuscular Hgb 27.5 pg (27.0-31.0); Mean Corpuscular Volume 80.8 fL (81.0-99.0); Mean Platelet Volume 9.4 fL (7.4-10.4); Nucleated Red Blood Cells % 0 %; Platelet Count 250 10^3/uL (130-400); Red Blood Cell Count 4.43 10^6/uL (4.20-5.40); Red Cell Dist. Width 15.5 % (11.5-14.5); White Blood Cell Count 5.3 10^3/uL (4.8-10.8)
[2024-03-06 10:15] LABS: Blood Urea Nitrogen 12 mg/dl (7-17); Calcium 9.2 mg/dl (8.4-10.2); Carbon Dioxide 20 mmol/L (22-30); Chloride 102 mmol/L (98-107); Estimated Creatinine Clearance 61 ml/min; Glucose 187 mg/dl (70-99); Potassium 4.1 mmol/L (3.5-5.1); Sodium 137 mmol/L (135-145); eGFR > 60.00
--- NOTE | 2024-03-06 10:49 | W.PN.NEPH.PH ---
Today's Communication / Plan
-
IVFs
hold lasix
Assessment/Plan
-
Assessment
donor renal transplant [address] [place] [address]
Right-sided V1 zoster
Diabetes mellitus type 1
Hypertension
Plan
off lasix for now
change IVFs to 70cc/hr
creatinine stable at baseline
bp control, additional hydralazine PRN
await FK level
-
-
Date of Service: March 06, 2024
CC / HPI / ROS
-
Chief Complaint:
renal transplant
History of Present Illness:
BP stable wit occasional spikes
nonoliguric with IVF
on acyclovir for facial shingles
Review of Systems:
no CP/SOB
reflux
Labs
-
Labs:
WBC 5.3 10^3/uL (4.8-10.8) 03/06/24 09:12
RBC 4.43 10^6/uL (4.20-5.40) 03/06/24 09:12
Hgb 12.2 g/dL (12.0-16.0) 03/06/24 09:12
Hct 35.8 % (37.0-47.0) L 03/06/24 09:12
Plt Count 250 10^3/uL (130-400) 03/06/24 09:12
Sodium 137 mmol/L (135-145) 03/06/24 09:12
Potassium 4.1 mmol/L (3.5-5.1) 03/06/24 09:12
Chloride 102 mmol/L (98-107) 03/06/24 09:12
Carbon Dioxide 20 mmol/L (22-30) L 03/06/24 09:12
BUN 12 mg/dl (7-17) 03/06/24 09:12
Creatinine 0.8 mg/dL (0.6-1.0) 03/06/24 09:12
eGFR > 60.00 03/06/24 09:12
Glucose 187 mg/dl (70-99) H 03/06/24 09:12
Calcium 9.2 mg/dl (8.4-10.2) 03/06/24 09:12
Physical Exam
-
Vital Signs:
Vital Signs
Temp Pulse Resp BP Pulse Ox
98.7 F 87 16 158/73 97
03/06/24 07:20 03/06/24 07:20 03/06/24 07:20 03/06/24 07:20 03/06/24 07:20
Cardiovascular:: Regular rate and rhythm
Respiratory:: Bilateral: CTA
Lung Excursion:: Normal
Abdomen:: Nontender and Soft
Bowel Sounds:: Normal
Extremity Edema:: None: Bilateral:
--- NOTE | 2024-03-06 11:33 | W.PN.ID1 ---
Date of Service
Date of Service: March 06, 2024
Today's Communication
- Can transition IV acyclovir to valacyclovir 1000 mg po q8h through 03/10/24.
- Follow up with Ophtho as scheduled.
Assessment / Plan
# Right side V1 Zoster with involvement adjacent upper V2, V3
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
# Multiple abx allergies: PCN, cefuroxime, sulfa, cipro
- pt clinically improving
-Renal function stable on acyclovir.
- Pt with right side eye pain, light sensitivity - both resolved.
Right vision change - not reading as well as previous.
Ophto recommended MRI brain/orbit - mild right eyelid soft tissue
- Can transition IV acyclovir to valacyclovir 1000 mg po q8h through 03/10/24.
- Follow up with Ophtho as scheduled.
# Conditions MANAGER LAN
Diabetes mellitus type 1
donor kidney transplant 2001 on tacrolimus and prednisone
Sarcoidosis
CAD status post stents
Hypertension
Dyslipidemia
Hypothyroidism
Neuropathy
CVA
Nephrolithiasis
History of breast cancer status post left lumpectomy and radiation
Chief Complaint
-: Other (Zoster)
Subjective / Review of Systems
Feeling much improved. Some vision change. Has appt with ophtho in 2 days.
Vital Signs / Physical Exam
Vital Signs
Vital Signs
Temp Pulse Resp BP Pulse Ox
98.7 F 87 16 158/73 97
03/06/24 07:20 03/06/24 07:20 03/06/24 07:20 03/06/24 07:20 03/06/24 07:20
Physical Exam
Constitutional: No Acute Distress and Comfortable
Head: Other (Right upper face/temporal red papular lesions - few are crusting. Right upper eyelid edema decreased. )
Cardiovascular: Regular Rate and S1/S2
Pulmonary: Clear
Gastrointestinal: Soft, Non Tender and Non Distended
Extremities: Negative Edema
Neurological: AO x 3
Physical Exam:
03/05/24 MRI brain/face/head: Subtle increased T2-weighted signal and enhancement involving the superficial skin and subcutaneous soft tissues overlying the right orbit, probably within the eyelid. Findings would suggest inflammation of the soft
tissues anterior to the right orbit, with no evidence for abscess. No evidence for intraorbital abnormality. Evidence of previous bilateral cataract surgery. No evidence of acute intracranial abnormality.
Objective Data
Lab Data
Lab Results
03/06/24 09:12
03/06/24 09:12
ESR Cancelled 03/05/24 12:40
Estimated Creat Clear 61 ml/min 03/06/24 09:12
C-Reactive Protein < 5.00 mg/L (0.0-10.00) 03/05/24 17:47
Most recent labs reviewed.
03/03/24 CT head/orbits: No acute fracture involving the orbits or visualized skull base. Globes are spherical without proptosis. Lenses are in appropriate position. There is no retro-orbital hematoma. Intraocular muscles and lacrimal glands intact
and symmetric bilaterally. No evidence for preseptal or postseptal cellulitis.
Care Review
Plan reviewed with: Physician (Dr. Fonseca)
[2024-03-06 12:52] LABS: Glucose - Point of Care 143 mg/dl (70-99)
[2024-03-06] MEDS: PATIENT'S OWN INSULIN PUMP 2.3 UNITS SC (13:06)
--- NOTE | 2024-03-06 13:24 | CM ---
Met with patient at bedside.
Discussed case management role.
CM received tt from [facility]-LOC changed to inpatient.
IMM explained and signed.
No needs anticipated.
PLAN: Home, no needs
to transport.
[2024-03-06] MEDS: VALTREX 1000 MG PO ×2 (14:38→22:08)
[2024-03-06] MEDS: BENADRYL 25 MG PO (14:55)
[2024-03-06 15:35] VITALS: BP 141/76
[2024-03-06 17:26] LABS: Glucose - Point of Care 126 mg/dl (70-99)
[2024-03-06] MEDS: PATIENT'S OWN INSULIN PUMP 2.1 UNITS SC (17:45)
[2024-03-06] MEDS: LOVENOX SC (17:47)
[2024-03-06] MEDS: PROGRAF 2 MG PO (20:17)
[2024-03-06] MEDS: SENOKOT-S PO ×2 (20:18→21:07)
[2024-03-06 21:16] LABS: Glucose - Point of Care 93 mg/dl (70-99)
[2024-03-06] MEDS: NEURONTIN 300 MG PO (22:07)
[2024-03-06] MEDS: PATIENT'S OWN INSULIN PUMP SC (22:08)
[2024-03-06] MEDS: TYLENOL 650 MG PO (22:15)
[2024-03-06 22:48] VITALS: BP 160/77
[2024-03-07] MEDS: VIROPTIC 1% EYE DROPS 1 DROP OPHTH ×5 (00:58→09:47)
[2024-03-07] MEDS: DILAUDID 0.25 MG IV (01:04)
[2024-03-07] MEDS: APRESOLINE 5 MG IV (03:46)
[2024-03-07] MEDS: XANAX 0.25 MG PO (04:02)
[2024-03-07 04:09] LABS: Glucose - Point of Care 70 mg/dl (70-99)
[2024-03-07 05:05] VITALS: BP 149/81
[2024-03-07] MEDS: SYNTHROID 100 MCG PO (05:10)
[2024-03-07 05:17] LABS: Glucose - Point of Care 89 mg/dl (70-99)
[2024-03-07 07:20] VITALS: BP 179/92
[2024-03-07] MEDS: VALTREX 1000 MG PO (08:04)
[2024-03-07] MEDS: PROGRAF 3 MG PO (08:04)
[2024-03-07] MEDS: MAG-TAB SR 84 MG PO (08:05)
[2024-03-07] MEDS: FOLVITE 1 MG PO (08:05)
[2024-03-07] MEDS: LOW STRENGTH ASPIRIN 81 MG PO (08:05)
[2024-03-07] MEDS: MIRALAX 17 GRAMS PO (08:05)
[2024-03-07] MEDS: SENOKOT-S 1 TABLET PO (08:05)
[2024-03-07] MEDS: DELTASONE 5 MG PO (08:05)
[2024-03-07] MEDS: COZAAR 50 MG PO (08:05)
[2024-03-07] MEDS: TOPROL XL 25 MG PO (08:06)
[2024-03-07] MEDS: PEPCID 20 MG IV (08:06)
[2024-03-07] MEDS: NSS (PRESERVATIVE FREE) 8 ML IV (08:06)
[2024-03-07 08:16] LABS: Glucose - Point of Care 157 mg/dl (70-99)
--- NOTE | 2024-03-07 08:29 | W.PN.HOSP.TC ---
Today's Communication/Plan
-
dc to home, see dictated note
Assessment / Plan
Assessment / Plan
Assessment/Plan
IMPRESSION:
63-year-old female with history of disease donor kidney transplant 20 years ago on tacrolimus (level 9.1 - therapeutic 5.0-20) and prednisone, CAD, insulin-dependent diabetes presented to the emergency department with persistent right-sided headache
and a right-sided facial rash.
# Right side V1 distribution Zoster with involvement adjacent V2, V3, possible C2
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
# Multiple abx allergies: PCN, cefuroxime, sulfa, cipro
# Light Sensitivity in the Right Eye as well as right eye pain with movement, that has fully resolved
Rash and Headache -patient with a erythematous macular rash that appears to be distributed in the V1 branch of the right side trigeminal nerve. On admission, appears early and no vesicles at this time. However the rash is mostly on the right, with
some extending to left with mild periorbital erythema. No vision changes and visual acuity is intact. Mild foreign body sensation on the medial aspect. No fevers or chills. Given the distribution of the rash, immunocompromise status and early
findings, she has prodromal head pain that could be consistent with a noncomplicated zoster. She is at high risk for dissemination, markedly improved.
Pt has Tramadol at home and has used previously, will change analgesics to Tramadol
- Previously received on admission Valacyclovir 1g q 8 hr, 7 to 14 days
- IV acyclovir was started on 03/05/24 -- ID stopped IV Acyclovir 600mg q8h and changed back to Valtrex
- Maintain normal saline 100 cc/hr while on IV acyclovir to lower the risk of nephrotoxicity
IVF okay to be stopped as per nephro, discussed with Dr. Villanueva who has cleared pt for dc
- Stopped home Lasix to avoid kidney injury to transplanted kidneys, Dr. Villanueva is okay with resuming Lasix
- Appreciate nephrology
- Dr. Carreon Spoke with on-call cco, and Dr. Itzel Mckinley recommended no more than 1 week with Trifluridine (1%) - 1 drop to right eye every 2 hours while awake,
Pt has appt with Sheba Escobar tomorrow (opth) and should keep appt
MRI Brain: Subtle increased T2-weighted signal and enhancement involving the superficial skin and subcutaneous soft tissues overlying the right orbit, probably within the eyelid. Findings would suggest inflammation of the soft tissues anterior to
the right orbit, with no evidence for abscess.
No evidence for intraorbital abnormality. Evidence of previous bilateral cataract surgery.
No evidence of acute intracranial abnormality.
Mild to moderate T2 and FLAIR white matter hyperintensities, commonly seen with aging and usually attributed to small vessel ischemic disease.
Kidney Tx - DDKTx 20 years ago at [facility]. Stable renal function
follows with Dr. Alcantar at [facility] [[email or web address]] in [place], has appt Apr 26, requested she call office to see if they wish for her to move appt up
- continue Tacrolimus 3 mg in the am and 2 mg at night
- prednisone 5 mg daily
- Appreciate nephrology
- Tacrolimus level 9.1
today's labs still pending
Nausea
Constipation
with pain attenuating, discussed with pt trying to limit narcotic analgesics, in meantime will allow for prn MOM in addition to current Tx
-Zofran
Right Renal Mass
will need appt with Urologist, requesting name of local Urologist
CT scan from 11/07/23: Pulmonary nodules. 2.5 mm nodule in the left costophrenic angle. 2.9 mm groundglass nodule in the posterior right lung base. Advise comparison with any prior outside examination.
Suspected treated metastatic lesion in the liver along the posterior right lobe margin measuring approximately 3 cm. At the junction of the medial and lateral segments of the left lobe there is a 1.1 cm low-attenuation space-occupying lesion. There
are additional tiny 5 mm or less low-attenuation hepatic structures which are too small to fully characterize. The possibility of metastatic disease cannot be entirely excluded. Advise direct comparison with any prior outside examination.
Severe bilateral [place] renal cortical atrophy. 10 mm enhancing right renal mass suspicious for renal cell carcinoma. Advise direct comparison with any prior outside examination.
Left pelvic transplant kidney. No obstructive uropathy. Few tiny renal cortical cysts.
No evidence of bowel obstruction.
Constipation with moderate to large fecal burden.
Under distention versus mild gastric wall thickening, most pronounced in the region of the gastric cardia, and to a lesser degree in the region of the antrum. Consider further evaluation with endoscopy.
History of Sarcoidosis
IDDM
- patient own pump
- fingerstick glucose achs
Hypertension
resume preadmit Rx
Hypothyroidism
- continue levothyroxine 100 mcg
TSH 46.1/T4 1.15
DVT Prophylaxis: Lovenox subq
Code Status: Full Code
as per Dr. Bolden, pt meets criteria to change to inpt admission
Dr. Carreon spoke extensively to patient's Gene, and explored possible transfer to [facility], but [facility] physicians recommend that if patient is transferred to transfer to [facility] in [facility]
[place] where they said patient's current transplant team is. Patient's said Dr. Kendy Spivey about 1 month ago said they would like to see patient and monitor patient's kidney transplant at [place].
If pt is not transferred to [facility], will need close follow up with opth post dc
On March 04, 2024, Dr. Carreon spoke to [place] transfer center including physicians Dr. Lakesha Henderson MD (transplant monorail charger operator) as well as Dr. Magui Rodas MD (hospitalist) at [facility], he discussed
patient's case with them and they accepted patient for emergent transfer to the [facility]. Dr. Henderson recommended being careful with the patient's Lasix and keeping net volume positive, he discussed this with
Niya here at [facility] and decision was made to stop the Lasix. Patient was to be transfered to [facility], but at this point with marked improvement, with cancel planned dc and arrange for outpt management .
Complex situation
More than 30 minutes spent in discharge including
Final examination of the patient
Summarizing hospital stay
Instructions for continuing care to all relevant caregivers
Preparation of discharge records, prescriptions, and referral forms
Total time spent (in minutes): 60
Anticipated Discharge: Today
Subjective/Interval History
-
Date of Service: March 07, 2024
Still with headache, but facial and eye pain resolved
Objective Data
-
Vital Signs:
Vital Signs
Temp Pulse Resp BP Pulse Ox
97.8 F 91 16 179/92 99
03/07/24 07:20 03/07/24 07:20 03/07/24 07:20 03/07/24 07:20 03/07/24 07:20
I&O
03/06/24 03/07/24 03/08/24
06:59 06:59 06:59
Intake Total 2184 / 2184 2640 / 2640
Balance 2184 / 2184 2640 / 2640
Review of Systems
-
History Source: Patient and Coordinated Provider
Constitutional: Denies Fever
EENT: Reports Other (rt sided head pain, facial pain has resolved); Denies Eye Pain
Respiratory: Reports No Symptoms
Cardiac: Reports No Symptoms
Abdomen/GI: Reports Constipated
Genitourinary: Reports No Symptoms
Musculoskeletal: Reports No Symptoms
Neuro: Reports Headache
Physical Exam
-
General: Well Developed, Well Nourished and No Apparent Distress
HEENT: Normocephalic, Atraumatic, Moist Mucous Membranes and Other (minimal rt upper eyelid swelling has resolved)
Respiratory: Clear to Auscultation; Negative Wheezes, Rales or Rhonchi
Cardiac: Regular Rhythm and S1/S2
GI: Soft, Nontender, Nondistended and Normal Bowel Sounds
Musculoskeletal: No Clubbing, No Cyanosis and No Edema
Skin: Warm, Dry and Rash (rt sided facial rash decreased, almost totally resolved, no active vesicles appreciated)
Neuro: Awake, Alert and Oriented
Psych: Calm
[2024-03-07] MEDS: NSS 1000 IV (08:31)
[2024-03-07] MEDS: ULTRAM 25 MG PO (09:43)
[2024-03-07] MEDS: PATIENT'S OWN INSULIN PUMP 0.8 UNITS SC (09:47)
--- NOTE | 2024-03-07 11:10 | W.PN.ID1 ---
Date of Service
Date of Service: March 07, 2024
Today's Communication
Continue valacyclovir 1000 mg po q8h through 03/10/24.
DC home.
Assessment / Plan
# Right side V1 Zoster with involvement adjacent upper V2, V3
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
# Multiple abx allergies: PCN, cefuroxime, sulfa, cipro
- pt clinically improving
-Renal function stable
- Pt with right side eye pain, light sensitivity - both resolved.
Right vision change - not reading as well as previous.
Ophto recommended MRI brain/orbit - mild right eyelid soft tissue
- s/p 2.5d IV acyclovir
- Continue valacyclovir 1000 mg po q8h through 03/10/24.
- Follow up with Ophtho tomorrow.
# Conditions DETECTIVE HOMICIDE SQUAD
Diabetes mellitus type 1
donor kidney transplant 2001 on tacrolimus and prednisone
Sarcoidosis
CAD status post stents
Hypertension
Dyslipidemia
Hypothyroidism
Neuropathy
CVA
Nephrolithiasis
History of breast cancer status post left lumpectomy and radiation
Chief Complaint
-: Other (Zoster)
Subjective / Review of Systems
Had some hand tremors last night and this am, none now.
Rash not as itchy after Benadryl.
Vital Signs / Physical Exam
Vital Signs
Vital Signs
Temp Pulse Resp BP Pulse Ox
97.8 F 91 16 179/92 99
03/07/24 07:20 03/07/24 07:20 03/07/24 07:20 03/07/24 07:20 03/07/24 07:20
Physical Exam
Constitutional: No Acute Distress and Comfortable
Head: Other (Right upper facial lesions 90% crusted)
Cardiovascular: Regular Rate and S1/S2
Pulmonary: Clear
Gastrointestinal: Soft, Non Tender and Non Distended
Objective Data
Lab Data
Lab Results
03/06/24 09:12
03/06/24 09:12
ESR Cancelled 03/05/24 12:40
Estimated Creat Clear 61 ml/min 03/06/24 09:12
C-Reactive Protein < 5.00 mg/L (0.0-10.00) 03/05/24 17:47
Most recent labs reviewed.
03/03/24 CT head/orbits: No acute fracture involving the orbits or visualized skull base. Globes are spherical without proptosis. Lenses are in appropriate position. There is no retro-orbital hematoma. Intraocular muscles and lacrimal glands intact
and symmetric bilaterally. No evidence for preseptal or postseptal cellulitis.
03/05/24 MRI brain/face: Subtle increased T2-weighted signal and enhancement involving the superficial skin and subcutaneous soft tissues overlying the right orbit, probably within the eyelid. Findings would suggest inflammation of the soft tissues
anterior to the right orbit, with no evidence for abscess.
[2024-03-07 11:24] VITALS: BP 143/80
--- NOTE | 2024-03-07 19:11 | W.DS.TRANS ---
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
-
Discharge Instructions:
Discharge Diagnosis/Procedures Immunocompromised with acute Shingles
Diet Regular
Activity As tolerated
Driving Restrictions Not until seen by your Dr
Bathing Restrictions None
Blood Work BMP in 1-2 weeks, Thyroid Profile in 1-2 weeks
Instructions:
Stand-Alone Forms:
Changes to Home Medications: Yes
Discharge Medications:
DC Medications w/original date entered in [employer]
aspirin 81 mg chewable tablet 81 mg PO DAILY Blood clot prevention/tx 02/12/22
ergocalciferol (vitamin D2) 1,250 mcg (50,000 unit) capsule 1,250 mcg PO MO Supplement 02/12/22
folic acid 1 mg tablet 1 mg PO DAILY Supplement 02/12/22
furosemide 40 mg tablet 40 mg PO DAILY Fluid retention/Swelling 02/12/22
magnesium oxide 400 mg (241.3 mg magnesium) tablet 400 mg PO DAILY Supplement 02/12/22
prednisone 5 mg tablet 5 mg PO DAILY Transplant 02/12/22
tacrolimus 1 mg capsule, immediate-release 2 mg PO QPM@2000 Transplant 02/12/22
tacrolimus 1 mg capsule, immediate-release 3 mg PO DAILY@0800 Transplant 02/12/22
gabapentin 100 mg capsule 100 mg PO HS Pain 11/06/23
levothyroxine 100 mcg tablet 100 mcg PO DAILY Thyroid 11/06/23
Pt's Own Ins. Pump U-500 [PT'S OWN INSULIN PUMP - U-500 HumuLIN R] See Rx Instructions .Route .COMPLEX #1 unit 11/10/23
albuterol sulfate 90 mcg/actuation aerosol inhaler 2 puff inhalation Q4H PRN shortness of breath or wheezing #8.5 grams 11/10/23
alprazolam 0.25 mg tablet 0.25 mg PO [id number] PRN anxiety #10 tabs 11/10/23
polyethylene glycol 3350 17 gram oral powder packet (HealthyLax) 17 g PO DAILY #30 ea 11/10/23
sennosides 8.6 mg-docusate sodium 50 mg tablet (Stool Softener-Stimulant Laxative) 1 tab PO BID #60 tabs 11/10/23
losartan 50 mg tablet (Cozaar) 50 mg PO DAILY Blood Pressure 03/05/24
metoprolol succinate 25 mg tablet,extended release 24 hr (Toprol XL) 25 mg PO DAILY Heart Disease/Condition 03/05/24
acetaminophen 325 mg tablet 650 mg (2 x 325 mg) PO Q4HPRN PRN mild pain/AUGUST/temp> 100.4F #0 tabs 03/07/24
tramadol 50 mg tablet 25 mg (1/2 x 50 mg) PO Q6HPRN PRN mild pain #0 tabs 03/07/24
trifluridine 1 % eye drops 1 drp ophthalmic (eye) Q2 #0 mL 03/07/24
valacyclovir 500 mg tablet 500 mg PO TID #22 tabs 03/07/24
Home Medication Changes
Valtrex added for 11 doses
Trifluridine eye drops added until seen by medical records auditor
Pending Results: No
== END 2024-03-07 11:29 | disposition home or self-care (01) | DRG 74 ==
LOC: 2 NORTH 09:43
PROVIDERS: Hospitalist; Physician Assistant Medical; ADMITTING PHYSICIAN Internal Medicine; ATTENDING PHYSICIAN Internal Medicine; CONSULT PHYSICIAN Internal Medicine Infectious Disease; CONSULT PHYSICIAN Psychiatry & Neurology Neurology; CONSULT PHYSICIAN Specialist; EMERGENCY PHYSICIAN Student in an Organized Health Care Education/Training Program; FAMILY PHYSICIAN Internal Medicine
DX: B02.29 Other postherpetic nervous system involvement (principal); D84.821 Immunodeficiency due to drugs; I13.0 Hypertensive heart and chronic kidney disease with heart failure and stage 1 through stage 4 chronic kidney disease, or unspecified chronic kidney disease; Z94.0 Kidney transplant status; I50.9 Heart failure, unspecified; E03.9 Hypothyroidism, unspecified; E10.22 Type 1 diabetes mellitus with diabetic chronic kidney disease; E10.40 Type 1 diabetes mellitus with diabetic neuropathy, unspecified; Z85.3 Personal history of malignant neoplasm of breast; Z92.3 Personal history of irradiation; D86.9 Sarcoidosis, unspecified; E55.9 Vitamin D deficiency, unspecified; E78.00 Pure hypercholesterolemia, unspecified; F41.9 Anxiety disorder, unspecified; N18.30 Chronic kidney disease, stage 3 unspecified; I25.10 Atherosclerotic heart disease of native coronary artery without angina pectoris; Z95.5 Presence of coronary angioplasty implant and graft; K52.9 Noninfective gastroenteritis and colitis, unspecified; K59.09 Other constipation; M54.2 Cervicalgia; Z96.41 Presence of insulin pump (external) (internal); Z79.4 Long term (current) use of insulin; Z79.621 Long term (current) use of calcineurin inhibitor; Z79.82 Long term (current) use of aspirin; Z79.890 Hormone replacement therapy; Z79.899 Other long term (current) drug therapy; Z87.442 Personal history of urinary calculi; Z86.73 Personal history of transient ischemic attack (TIA), and cerebral infarction without residual deficits; Z88.0 Allergy status to penicillin; Z88.1 Allergy status to other antibiotic agents; Z88.2 Allergy status to sulfonamides
CPT/HCPCS: 70450; 70481; 70543; 70544; 70553; 72040; 80048; 80197; 82962; 84439; 84443; 85025; 85027; 85652; 86140; 87811; 93005; 96374; 99284; A9575; Q9967